=== PATIENT | female | born 1980 | race Caucasian/White ===

== ENCOUNTER 2021-05-28 10:14 | Emergency (ER) | payer OTHER ==
[~2021-05-28] VITALS: Ht 160 cm; Wt 79.6 kg
[2021-05-28 13:31] LABS: BASO % 0.3 % (0.0-1.0); EOS # 0.1 10^3/uL (0.0-0.5); EOS % 0.5 % (0.0-3.0); HEMATOCRIT 38.1 % (36.0-47.0); HEMOGLOBIN 12.9 g/dl (12.0-15.5); LYMPH # 1.6 10^3/uL (1.5-5.0); MEAN CORPUSCULAR HEMOGLOBIN 29.2 pg (27.0-33.0); MEAN CORPUSCULAR HGB CONC 33.9 g/dl (32.0-36.5); MEAN CORPUSCULAR VOLUME 86.2 fl (80.0-96.0); MONO # 0.7 10^3/uL (0.0-0.8); MONO % 5.9 % (2.0-8.0); NEUTROPHILS # 8.8 10^3/uL (1.5-8.5); NEUTROPHILS % 78.9 % (36.0-66.0); PLATELET COUNT, AUTOMATED 368 10^3/uL (150-450); RED BLOOD COUNT 4.42 10^6/uL (4.00-5.40); WHITE BLOOD COUNT 11.1 10^3/uL (4.0-10.0)
[2021-05-28] MEDS ORDERED: MORPHINE 2 MG/ML 1ML VIAL (J2270) IV ONE (13:50)
[2021-05-28] MEDS ORDERED: ONDANSETRON 4MG/2ML VIAL IV ONE (14:10)
[2021-05-28 14:33] LABS: ALBUMIN 3.6 GM/DL (3.2-5.2); BILIRUBIN,DIRECT 0.1 MG/DL (0.0-0.2); BILIRUBIN,TOTAL 0.4 MG/DL (0.2-1.0); CREATININE FOR GFR 1.19 MG/DL (0.55-1.30); POTASSIUM SERUM 3.6 MEQ/L (3.5-5.1); TOTAL PROTEIN 8.1 GM/DL (6.4-8.2)
[2021-05-28] MEDS ORDERED: NS 500 ML IV ONE (14:40)
[2021-05-28] MEDS ORDERED: KETOROLAC 30 MG/ML 1ML VIAL IV ONE (14:40)
[2021-05-28] MEDS ORDERED: KETOROLAC 30 MG/ML 1ML VIAL As Ordered ONE (14:44)
--- NOTE | 2021-05-28 14:53 | REP ---
INDICATION: pelvic pain, right,known left large mass vs clot vs cyst. COMPARISON: None. TECHNIQUE: Transvesical and transvaginal imaging. FINDINGS: The uterus has a bulbous appearance measuring approximately 8.3 x 5.6 x 5.7 cm. The parenchymal echo pattern is heterogenous but there are no measurable discrete masses. The endometrial echo complex is poorly distinguished from the myometrial echoes and has only an estimated thickness of 6 mm. The right ovary measures 3.6 x 2.5 x 2.4 cm and is within normal limits with an RI 0.67 per Left ovary measures approximately 13.7 x 7.6 x 12.6 cm, is seen transabdominal E only, and has within it and 11.2 x 6.8 x 10.3 cm sized mixed echo mass. This mass may have a debris fluid level. The left ovarian RI is 0.57. Urinary bladder measures 6 x 3 x 4 cm IMPRESSION: 1. There is a large left dimitrios pelvic mass. History given to me is that the patient has a known large left mass versus cyst versus clot. This, certainly, is confusing since are no prior imaging studies of any kind to compare. I would like to know where this history comes from and I would like to be able to compare this study to prior exams which may have been responsible for fostering that history. If no priors can be obtained then I would recommend pre and post gadolinium enhanced pelvic MRI. Certainly, the etiology of this mass is unknown and seen in limited fashion on this single ultrasound exam. <Electronically signed by Mazin Nicholas > 05/28/21 [id number]
[2021-05-28 16:21] VITALS: BP 154/83
== END 2021-05-28 16:23 | disposition home or self-care (01) ==
LOC: M ED 10:14
DX: R19.09 Other intra-abdominal and pelvic swelling, mass and lump (principal); I10 Essential (primary) hypertension; Z91.89 Other specified personal risk factors, not elsewhere classified
CPT/HCPCS: 36415; 76830; 76856; 80048; 80076; 81001; 83690; 85025; 87086; 93976; 96361; 96374; 96375; 99284; J1885; J2405

== ENCOUNTER 2021-06-22 05:58 | Day surgery (SDC) | payer OTHER ==
[~2021-06-22] VITALS: Ht 160 cm; Wt 78.2 kg
[~2021-06-22 05:58] MED LIST: IBUP80TA PO; LISI20TA33 PO; ONDA-83 PO; OXYC1TAB23 PO; TIZA4TAB4 PO
[2021-06-22] MEDS ORDERED: ACETAMINOPHEN *IV* 1,000 MG IV ONE ×2 (06:00)
[2021-06-22] MEDS ORDERED: LIDOCAINE 1% MDV 20ML VIAL SQ PRN (06:00)
[2021-06-22] MEDS ORDERED: LR 1,000 ML IV ONE (06:00)
--- OUTSIDE RECORDS SUMMARY | 2021-06-22 06:03 | CCD | Summary of Care ---
Author Author [facility] Organization [facility] Address Unknown Phone Unavailable Care Team Providers Care Lead Java Programmer Name Role Phone Kamar Quintana MD PCP Reason for Referral * Diagnostic Radiology (Routine) Referred By Contact Referred To Contact Status Reason Specialty Diagnoses / Procedures Kris Paredes PA [address] [place] [id number] Email: [email or web address] Open Radiology Diagnoses Hip pain, chronic, left P rocedures MR Extremity Lower Joint without Contrast Left Joint, Hip Electronically signed by Kris FERNANDEZ at Reason for Visit * Reason Comments Follow-up Bilateral hip pain - worse * Office Visit (Routine) Referred By Contact Referred To Contact Status Reason Specialty Diagnoses / [place] [address] [place] [address] Jefry Ko MD [address] [place] [address] Email: [email or web address] Authorized Orthopedic Diagnoses Surgery REFFERAL #[id number], Left hip pain(referral for bilat but having issues with left mostly),bXR,notes from [facility] to [address] (auth also given to Oscar Kathleen) 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 1 03/02/21-08/29/21 OV 3 03/02/21-03/02/22 P rocedures NEW PATIENT 03/02/21-03/02/22 Bilat hip pain Encounter Details Care Team Description Date Type Department Kris Paredes PA [address] [place] [address] [phone] Hip pain, chronic, left (Primary Dx) 04/30/2021 Office Visit [facility] , [facility] [address] [place] [address] Allergies Comments Active Allergy Reactions Severity Noted Date Fredo after appendix - unknown reaction as a child Other 03/23/2021 documented as of this encounter (statuses as of 04/30/2021) Medications End Date Status Medication Sig Dispensed Refills Start Date Active Zanaflex 4 MG Oral Tablet 0 1 Active Acetaminophen ER 650 MG Take 650 mg 0 Oral Tablet Extended by mouth Release (Tylenol 8 Hour every 8 Arthritis Pain) (eight) hours as needed for Pain Active oxyCODONE-Acetaminophen TAKE ONE 0 5-325 MG Oral Tablet TABLET BY 1 (PERCOCET) MOUTH FOUR TIMES A DAY NEEDED FOR PAIN MAXIMUM DAILY DOSE 4 Active Ibuprofen 800 MG Oral 0 Tablet (MOTRIN) 1 04/30/2021 Discontinued oxyCODONE HCl 5 MG Oral 0 Tablet (ROXICODONE) 1 04/30/2021 Discontinued Diclofenac Sodium 75 MG 0 Oral Tablet Delayed 1 Release (VOLTAREN) 04/30/2021 Discontinued Piroxicam 20 MG Oral 0 Capsule (FELDENE) 1 documented as of this encounter (statuses as of 04/30/2021) Active Problems No known active problemsdocumented as of this encounter (statuses as of 04/30/2021) Social History Date Tobacco Use Types Packs/Day Years Used Never Smoker Smokeless Tobacco: Never Used Comments Alcohol Use Standard Drinks/Week Occasionally Yes 0 (1 standard drink = 0.6 o z pure alcohol) Sex Assigned at Date Recorded Not on file Date Recorded COVID-19 Exposure Response 04/29/2021 8:14 PM EDT In the last month, have you been in contact with No / Unsure someone who was confirmed or suspected to have Coronavirus / COVID-19? documented as of this encounter Last Filed Vital Signs Not on filedocumented in this encounter Patient Instructions * Patient Instructions* Ruthann Jordan LPN - 04/30/2021 10:00 AM EDT The patient is instructed to call the office with any question/concerns or if sy mptoms worsen. documented in this encounter Progress Notes * Kris Paredes PA - 04/30/2021 10:00 AM EDT Established Patient, Subsequent Encounter Dx: 1. Left hip and groin pain, failing physical therapy 2. 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 female who returns to the office for follow-up for left hip pain. Last visit, she was complaining of left hip pain. 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 However, her main issue was left hip pain at the last visit. We started her in physical therapy. She has been attending for 6 weeks and has had no meaningful improvem ent. She is complaining of pain in the hip and groin in a C-shaped distribution about the hip. She has pain with rotary motion of the hip she has pain with hip flexion. She also has some lateral hip pain. She does not seem to be getting any traction on the symptoms despite attending physical therapy regularly since last visit. She was seen in her local community ED recently after a physical therapy visit w hen she had increased pain. She had x-rays of her back done which showed very m inimal DDD. Those x-rays are not available for review today, however the report was available for review which showed mild L3-L4 DDD. There has been no interval trauma. The patient denies fevers, chills, sweats. No neurological complaints. Medical history, family history, social history, medications, allergies and revi ew of systems are documented in the electronic record and reviewed today with farzaneh e patient. PHYSICAL EXAMINATION: General: Pleasant, cooperative, A&O, NAD. Gait: normal with no assistive device Hip Passive range of motion: Right hip- 90 degrees flexion, 40 degrees ER, 20 degrees IR, 0 degree hip flexio n contracture. Left hip- 105 degrees flexion, 60 degrees ER, 40 degrees IR, 0 degree hip flexio n contracture. Palpation: Right hip tenderness to palpation- none. Left hip tenderness to palpation- none. Specific tests: Right hip- Stinchfield positive, impingement positive, LUCIO negative. Left hip- Stinchfield positive, impingement positive, LUCIO positive. Limb lengths: equal Scars: None Neurovascular Exam: Bilateral distal neurovascular exam showed well-perfused fee t with intact foot dorsiflexion/plantarflexion and EHL, normal sensation in the deep and superficial peroneal nerve and medial and lateral plantar nerve distrib utions bilaterally. IMAGING: No new imaging obtained today. X-rays last visit demonstrated right femoral hea d flattening with secondary DJD consistent with patient's provided history of SC FE. Left hip showed fairly well-preserved joint space with no significant abnor mal findings. ASSESSMENT: 1. Left hip and groin pain, failing physical therapy 2. 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 At this point, we have not established diagnosis explaining her chronic right hip pain. However, the left hip is more symptomatic and failing conservative treatment with physical therapy for over 6 weeks. Therefore, MRI imaging is indicated. We will proceed on with MRI and I will see her back after the study to review results. The patient was instructed to call the office with any questions/concerns or if symptoms worsen. Follow-up: Post MRI, okay for telemedicine visit for review Imaging Next Visit: None Orders Placed This Encounter MR Extremity Lower Joint without Contrast Left Joint, Hip CC: Kamar Quintana MD This document was dictated using [employer] software. A reasonable attempt at proof reading has been made to minimize errors. Please ca ll our office if you have any questions. documented in this encounter Plan of Treatment Order Schedule Name Type Priority Associated Diag noses Expected: 04/30/2021, Expires: MR Extremity Lower Joint Imaging Routine Hip p ain, chronic, left without Contrast Left Joint, Hip Health Maintenance Due Date Last Done Comments MMR Vaccines (1 of - 1980 Standard series) Varicella Vaccines (1 of 1980 2 - 2-dose childhood series) DTaP,Tdap,and Td Vaccines 1986 (1 - Tdap) HIV Screening 1992 Cervical Cancer Screening 2000 5 years Influenza Vaccine 05/28/2021 Pneumococcal Vaccine: 65+ 2044 Years (1 of 1 - PPSV23) HIB Vaccines Aged Out No longer eligible based on patient's age to complete this topic Hepatitis A Vaccines Aged Out No longer eligibl e based on patient's age to complete this topic Hepatitis B Vaccines Aged Out No longer eligibl e based on patient's age to complete this topic IPV Vaccines Aged Out No longer eligible based on patient's age to complete this topic Pneumococcal Vaccine: Aged Out No longer eligib le based on patient's age to Pediatrics (0 to 5 Years) complete this topic and At-Risk Patients (6 to 64 Years) documented as of this encounter Results Not on filedocumented in this encounter Visit Diagnoses Diagnosis Hip pain, chronic, left - Primary documented in this encounter
--- OUTSIDE RECORDS SUMMARY | 2021-06-22 06:03 | CCD | Summary of Care ---
Author Author [facility] Organization [facility] Address Unknown Phone Unavailable Care Team Providers Care Java Architect Name Role Phone Kamar Quintana MD PCP Reason for Referral * Physical Therapy (Routine) Referred By Contact Referred To Contact Status Reason Specialty Diagnoses / Procedures Kris Paredes PA [address] [place] [id number] Email: [email or web address] Open Diagnoses Arthritis of right hip Strain of flexor muscle of left hip, initial encounter P rocedures Physical Therapy Electronically signed by Kris FERNANDEZ at Reason for Visit * Reason Comments New Patient November 2020 Bilateral hip pa in - no injury * Office Visit (Routine) Referred By Contact Referred To Contact Status Reason Specialty Diagnoses / [place] [address] [place] [address] Jefry Ko MD [address] [place] [address] Email: [email or web address] Authorized Orthopedic Diagnoses Surgery REFFERAL #[id number], Left hip pain(referral for bilat but having issues with left mostly),bXR,notes from [facility] to [address] (auth also given to Oscar Kathleen) 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 [place] [address] [place] [address] Allergies Comments Active Allergy Reactions Severity Noted Date [place] after appendix - unknown reaction as a child Other 03/23/2021 documented as of this encounter (statuses as of 03/25/2021) Medications End Date Status Medication Sig Dispensed Refills Start Date Active oxyCODONE HCl 5 MG Oral 0 Tablet (ROXICODONE) 1 Active Diclofenac Sodium 75 MG 0 Oral Tablet Delayed 1 Release (VOLTAREN) Active Piroxicam 20 MG Oral 0 Capsule (FELDENE) 1 Active Zanaflex 4 MG Oral Tablet 0 1 Active Acetaminophen ER 650 MG Take 650 mg 0 Oral Tablet Extended by mouth Release (Tylenol 8 Hour every 8 Arthritis Pain) (eight) hours as needed for Pain documented as of this encounter (statuses as of 03/25/2021) Active Problems No known active problemsdocumented as of this encounter (statuses as of 03/25/2021) Social History Date Tobacco Use Types Packs/Day Years Used Never Smoker Smokeless Tobacco: Never Used Comments Alcohol Use Standard Drinks/Week Occasionally Yes 0 (1 standard drink = 0.6 o z pure alcohol) Sex Assigned at Date Recorded Not on file Date Recorded COVID-19 Exposure Response 03/22/2021 6:27 PM EDT In the last month, have you been in contact with No / Unsure someone who was confirmed or suspected to have Coronavirus / COVID-19? documented as of this encounter Last Filed Vital Signs Reading Time Taken Comments Vital Sign 158/89 03/23/2021 1:54 PM EDT Blood Pressure 89 03/23/2021 1:54 PM EDT Pulse - - Temperature - - Respiratory Rate - - Oxygen Saturation - - Inhaled Oxygen Concentration 83.4 kg (183 lb 12.8 oz) 03/23/2021 1:54 PM EDT Weight 160 cm (5' 3") 03/23/2021 1:54 PM EDT Height 32.56 03/23/2021 1:54 PM EDT Body Mass Index documented in this encounter Patient Instructions * Patient Instructions* Ruthann Jordan LPN - 03/23/2021 2:00 PM EDT The patient is instructed to call the office with any question/concerns or if sy mptoms worsen. documented in this encounter Progress Notes * Kris Paredes PA - 03/23/2021 2:00 PM EDT New Patient, Initial Encounter, Hip Pain Dx: 1. Right hip DJD with history of SCFE 2. Left hip pain likely musculotendinous secondary to compensation for #1 Attending: Jefry Ko MD Chief Complaint Patient presents with New Patient November 2020 Bilateral hip pain - no injury HPI: Saul is a 40 y.o. year/old female who presents to the office today for evaluat ion of bilateral hip pain. 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 She states she had a delayed Diagnosis and had been treated as a muscle strain. She did not undergo pinning as a child, but did have what sounds like an osteotomy as an adult in 2008 in [facility] in [facility] by Dr. Mane. As far as right hip goes, she has aches and pains particularly in the groin wors e with activity, better with rest, but difficulty finding a comfortable position to sleep. Symptoms are fairly stable on that side. However, more recently she has started to get some anterior left hip pain. Pain is worse with active hip flexion. She is tried heat, cold, OTC analgesics. She takes muscle relaxers an ti-inflammatories and for a time tried oxycodone. She also uses Tylenol arthrit is to manage symptoms in both hips. There has been no trauma. PMH: Reviewed. History reviewed. No pertinent past medical history. History reviewed. No pertinent family history. Past Surgical History: Procedure Laterality Date APPENDECTOMY 1986 SECTION HIP SURGERY Right SHOULDER SURGERY Current Outpatient Medications: Acetaminophen ER 650 MG Oral Tablet Extended Release (Tylenol 8 Hour Art hritis Pain), Take 650 mg by mouth every 8 (eight) hours as needed for Pain, Di sp: , Rfl: Diclofenac Sodium 75 MG Oral Tablet Delayed Release (VOLTAREN), , Disp: , Rfl: oxyCODONE HCl 5 MG Oral Tablet (ROXICODONE), , Disp: , Rfl: Zanaflex 4 MG Oral Tablet, , Disp: , Rfl: Piroxicam 20 MG Oral Capsule (FELDENE), , Disp: , Rfl: Allergies Allergen Reactions Other Fredo after appendix - unknown reaction as a child ROS: Comprehensive review of systems completed by patient and reviewed by me. P ertinent positive findings include nothing other than mentioned in the HPI/PMH. Otherwise negative. Vitals: 03/23/21 1354 BP: 158/89 Pulse: 89 Body mass index is 32.56 kg/m. PHYSICAL EXAMINATION General: Pleasant patient in good spirits, A&O X 3, cooperative, NAD. Gait: normal with no assistive device [...] LUCIO negative. Left hip- Stinchfield positive, impingement negative, LUCIO negative. Limb lengths: equal Scars: None Neurovascular Exam: Bilateral distal neurovascular exam showed well-perfused fee t with intact foot dorsiflexion/plantarflexion and EHL, normal sensation in the deep and superficial peroneal nerve and medial and lateral plantar nerve distrib utions bilaterally. IMAGING REVIEW: All imaging was reviewed by me with patient and/or family members, final radiolo gy report pending. To my independent review, pelvis and hip x-rays show moderat e right hip DJD with mild flattening and deformity of the femoral head consisten t with patient's history of SCFE. Left hip well-preserved with no acute bony ab normalities either side.. ASSESSMENT: 1. Right hip DJD with history of SCFE 2. Left hip pain likely musculotendinous secondary to compensation for #1 PLAN: For the right hip, options for treatment of hip arthritis have been reviewed wit stewart Hughes, including OTC or Rx NSAIDs, Tylenol, low impact exercise, weight loss as needed, image-guided intra-articular cortisone injections and/or PT. Advance d arthritis that has failed these conservative treatments can be treated with to constantin hip replacement. For the left hip, recommend physical therapy and the patient agrees. Only see her back in 6 weeks to see how she is doing with PT for the left hip. For the time being, the right hip is fairly status quo, and she is managing with her symptoms. When her symptoms become more prominent on the right side, we co uld consider intra-articular injection. Ultimately we would want to hold off on surgical intervention with FERNANDA as long as possible and the patient is in total agreement with that. Follow-up: 6 weeks clinical check Imaging Next Visit: None Orders Placed This Encounter Physical Therapy CC: Kamar Quintana MD This document was dictated using [employer] software. A reasonable attempt at proof reading has been made to minimize errors. Please ca ll our office if you have any questions. documented in this encounter Plan of Treatment Care Team Description Date Type Specialty Kris Paredes PA [address] [place] [address] [phone] 04/30/2021 Office Visit Orthopedic Surgery Health Maintenance Due Date Last Done Comments MMR Vaccines (1 of - 1980 Standard series) Varicella Vaccines (1 of 1980 2 - 2-dose childhood series) DTaP,Tdap,and Td Vaccines 1986 (1 - Tdap) HIV Screening 1992 Cervical Cancer Screening 2000 5 years Influenza Vaccine 05/28/2021 Pneumococcal Vaccine: 65+ 2044 Years (1 of - PPSV23) HIB Vaccines Aged Out No [...] filedocumented in this encounter Visit Diagnoses Diagnosis Arthritis of right hip - Primary Strain of flexor muscle of left hip, in itial encounter documented in this encounter
--- OUTSIDE RECORDS SUMMARY | 2021-06-22 06:04 | CCD ---
Author Author [facility] Organization [facility] Address Unknown Phone Unavailable Care Team Providers Care Child & Adolescent Psychiatrist Name Role Phone NO, PCP Unavailable Unavailable Paredes, P Kris PA Unavailable Unavailable Paredes, P Kris PA Unavailable Unavailable Paredes, P Kris PA Unavailable Unavailable Paredes, P Kris PA Unavailable Unavailable Paredes, P Kris PA Unavailable Unavailable Paredes, P Kris PA Unavailable Unavailable Paredes, P Kris PA Unavailable Unavailable Paredes, P Kris PA Unavailable Unavailable Paredes, P Kris PA Unavailable Unavailable Paredes, P Kris PA Unavailable Unavailable Paredes, P Kris PA Unavailable Unavailable Paredes, P Kris PA Unavailable Unavailable Paredes, P Kris PA Unavailable Unavailable Paredes, P Kris PA Unavailable Unavailable Paredes, P Kris PA Unavailable Unavailable Paredes, P Kris PA Unavailable Unavailable Paredes, P Kris PA Unavailable Unavailable Paredes, P Kris PA Unavailable Unavailable Paredes, P Kris PA Unavailable Unavailable Paredes, P Kris PA Unavailable Unavailable Paredes, P Kris PA Unavailable Unavailable Paredes, P Kris PA Unavailable Unavailable Paredes, P Kris PA Unavailable Unavailable Paredes, P Kris PA Unavailable Unavailable Paredes, P Kris PA Unavailable Unavailable Paredes, P Kris PA Unavailable Unavailable Paredes, P Kris PA Unavailable Unavailable Paredes, P Kris PA Unavailable Unavailable Paredes, P Kris PA Unavailable Unavailable Paredes, P Kris PA Unavailable Unavailable Paredes, P Kris PA Unavailable Unavailable Paredes, P Kris PA Unavailable Unavailable Paredes, P Kris PA Unavailable Unavailable Paredes, P Kris PA Unavailable Unavailable Paredes, P Kris PA Unavailable Unavailable Paredes, P Kris PA Unavailable Unavailable Paredes, P Kris PA Unavailable Unavailable Paredes, P Kris PA Unavailable Unavailable Paredes, P Kris PA Unavailable Unavailable Paredes, P Kris PA Unavailable Unavailable Paredes, P Kris PA Unavailable Unavailable Paredes, P Kris PA Unavailable Unavailable SIDDIQI, BARRETT Unavailable Unavailable Mcelroy, Kahlil MD Unavailable Unavailable Mcelroy, Kahlil MD Unavailable Unavailable Mcelroy, Kahlil MD Unavailable Unavailable Mcelroy, Kahlil MD Unavailable Unavailable Mcelroy, Kahlil MD Unavailable Unavailable Mcelroy, Kahlil MD Unavailable Unavailable WATTERS, A PRISCILA MD Unavailable Unavailable WATTERS, A PRISCILA MD Unavailable Unavailable WATTERS, A PRISCILA MD Unavailable Unavailable WATTERS, A PRISCILA MD Unavailable Unavailable WATTERS, A PRISCILA MD Unavailable Unavailable WATTERS, A PRISCILA MD Unavailable Unavailable WATTERS, A PRISCILA MD Unavailable Unavailable WATTERS, A PRISCILA MD Unavailable Unavailable WATTERS, A PRISCILA MD Unavailable Unavailable WATTERS, A PRISCILA MD Unavailable Unavailable WATTERS, A PRISCILA MD Unavailable Unavailable WATTERS, A PRISCILA MD Unavailable Unavailable WATTERS, A PRISCILA MD Unavailable Unavailable WATTERS, A PRISCILA MD Unavailable Unavailable WATTERS, A PRISCILA MD Unavailable Unavailable WATTERS, A PRISCILA MD Unavailable Unavailable WATTERS, A PRISCILA MD Unavailable Unavailable WATTERS, A PRISCILA MD Unavailable Unavailable WATTERS, A PRISCILA MD Unavailable Unavailable WATTERS, A PRISCILA MD Unavailable Unavailable WATTERS, A PRISCILA MD Unavailable Unavailable WATTERS, A PRISCILA MD Unavailable Unavailable WATTERS, A PRISCILA MD Unavailable Unavailable WATTERS, A PRISCILA MD Unavailable Unavailable WATTERS, A PRISCILA MD Unavailable Unavailable WATTERS, A PRISCILA MD Unavailable Unavailable WATTERS, A PRISCILA MD Unavailable Unavailable WATTERS, A PRISCILA MD Unavailable Unavailable WATTERS, A PRISCILA MD Unavailable Unavailable WATTERS, A PRISCILA MD Unavailable Unavailable WATTERS, A PRISCILA MD Unavailable Unavailable WATTERS, A PRISCILA MD Unavailable Unavailable WATTERS, A PRISCILA MD Unavailable Unavailable WATTERS, A PRISCILA MD Unavailable Unavailable WATTERS, A PRISCILA MD Unavailable Unavailable WATTERS, A PRISCILA MD Unavailable Unavailable WATTERS, A PRISCILA MD Unavailable Unavailable WATTERS, A PRISCILA MD Unavailable Unavailable WATTERS, A PRISCILA MD Unavailable Unavailable WATTERS, A PRISCILA MD Unavailable Unavailable WATTERS, A PRISCILA MD Unavailable Unavailable WATTERS, A PRISCILA MD Unavailable Unavailable WATTERS, A PRISCILA MD Unavailable Unavailable WATTERS, A PRISCILA MD Unavailable Unavailable WATTERS, A PRISCILA MD Unavailable Unavailable WATTERS, A PRISCILA MD Unavailable Unavailable WATTERS, A PRISCILA MD Unavailable Unavailable WATTERS, A PRISCILA MD Unavailable Unavailable WATTERS, A PRISCILA MD Unavailable Unavailable WATTERS, A PRISCILA MD Unavailable Unavailable WATTERS, A PRISCILA MD Unavailable Unavailable WATTERS, A PRISCILA MD Unavailable Unavailable WATTERS, A PRISCILA MD Unavailable Unavailable WATTERS, A PRISCILA MD Unavailable Unavailable WATTERS, A PRISCILA MD Unavailable Unavailable WATTERS, A PRISCILA MD Unavailable Unavailable WATTERS, A PRISCILA MD Unavailable Unavailable WATTERS, A PRISCILA MD Unavailable Unavailable WATTERS, A PRISCILA MD Unavailable Unavailable WATTERS, A PRISCILA MD Unavailable Unavailable WATTERS, A PRISCILA MD Unavailable Unavailable WATTERS, A PRISCILA MD Unavailable Unavailable WATTERS, A PRISCILA MD Unavailable Unavailable WATTERS, A PRISCILA MD Unavailable Unavailable WATTERS, A PRISCILA MD Unavailable Unavailable WATTERS, A PRISCILA MD Unavailable Unavailable WATTERS, A PRISCILA MD Unavailable Unavailable WATTERS, A PRISCILA MD Unavailable Unavailable WATTERS, A PRISCILA MD Unavailable Unavailable WATTERS, A PRISCILA MD Unavailable Unavailable WATTERS, A PRISCILA MD Unavailable Unavailable WATTERS, A PRISCILA MD Unavailable Unavailable WATTERS, A PRISCILA MD Unavailable Unavailable WATTERS, A PRISCILA MD Unavailable Unavailable WATTERS, A PRISCILA MD Unavailable Unavailable WATTERS, A PRISCILA MD Unavailable Unavailable WATTERS, A PRISCILA MD Unavailable Unavailable WATTERS, A PRISCILA MD Unavailable Unavailable WATTERS, A PRISCILA MD Unavailable Unavailable WATTERS, A PRISCILA MD Unavailable Unavailable WATTERS, A PRISCILA MD Unavailable Unavailable WATTERS, A PRISCILA MD Unavailable Unavailable WATTERS, A PRISCILA MD Unavailable Unavailable WATTERS, A PRISCILA MD Unavailable Unavailable WATTERS, A PRISCILA MD Unavailable Unavailable WATTERS, A PRISCILA MD Unavailable Unavailable WATTERS, A PRISCILA MD Unavailable Unavailable WATTERS, A PRISCILA MD Unavailable Unavailable WATTERS, A PRISCILA TROY Unavailable Unavailable WATTERS, A PRISCILA TROY Unavailable Unavailable WATTERS, A PRISCILA TROY Unavailable Unavailable WATTERS, A PRISCILA TROY Unavailable Unavailable Lucille PETIT Unavailable Unavailable TURRIN, KATTY Unavailable Unavailable TURRIN, KATTY Unavailable Unavailable TURRIN, KATTY Unavailable Unavailable TURRIN, KATTY Unavailable Unavailable SIDDIQI, S BARRETT Unavailable Unavailable CHANMAURAECMIREILLE, Ca GREENE MD Unavailable Unavailable CHANLIECMIREILLE, Ca GREENE MD Unavailable Unavailable CHANLIECMIREILLE, Ca GREENE MD Unavailable Unavailable CHANLIECMIREILLE, Ca GREENE MD Unavailable Unavailable CHANLIECMIREILLE, Ca GREENE MD Unavailable Unavailable CHANLIECMIREILLE, Ca GREENE MD Unavailable Unavailable CHANLIECMIREILLE, Ca GREENE MD Unavailable Unavailable CHANLIECMIREILLE, Ca GREENE MD Unavailable Unavailable CHANLIECMIREILLE, Ca GREENE MD Unavailable Unavailable CHANLIECCa KENDRICK MD Unavailable Unavailable Ca ARROYO MD Unavailable Unavailable Re-disclosure Warning The records that you are about to access may contain information from federally-assisted alcohol or drug abuse programs. If such information is present, then the following federally mandated warning applies: This information has been disclosed to you from records protected by federal confidentiality rules (42 CFR part 2). The federal rules prohibit you from making any further disclosure of this information unless further disclosure is expressly permitted by the written consent of the person to whom it pertains or as otherwise permitted by 42 CFR part 2. A general authorization for the release of medical or other information is NOT sufficient for this purpose. The Federal rules restrict any use of the information to criminally investigate or prosecute any alcohol or drug abuse patient.The records that you are about to access may contain highly sensitive health information, the redisclosure of which is protected by Article 27-F of the [facility] Public Health law. If you continue you may have access to information: Regarding HIV / AIDS; Provided by facilities licensed or operated by the [facility] Office of Mental Health; or Provided by the [facility] Office for People With Developmental Disabilities. If such information is present, then the following [facility] mandated warning applies: This information has been disclosed to you from confidential records which are protected by state law. State law prohibits you from making any further disclosure of this information without the specific written consent of the person to whom it pertains, or as otherwise permitted by law. Any unauthorized further disclosure in violation of state law may result in a fine or prison sentence or both. A general authorization for the release of medical or other information is NOT sufficient authorization for further disc losure. Allergies and Adverse Reactions Type Description Substance Reaction Status Data Source(s ) OTHER OTHER [facility] Encounters Encounter Providers Location Date Indications Data Source(s ) Outpatient Attender: Kris Dacostaer: BARRETT SIDDIQI [id number] 05/31/2021 12:00:00 AM EDT [facility] Emergency Attender: Kahlil COELHOonsultant: BARRETT SIDDIQI 05/27/2021 07:05:00 PM EDT - 05/28/2021 12:51:00 AM EDT [facility] Patient discharged. Emergency Attender: Kahlil Mcelroy MDConsultant: BARRETT SIDDIQI 05/26/2021 12:01:00 AM EDT - 05/26/2021 04:05:00 AM EDT [facility] Patient discharged. Emergency Attender: Kahlil Meaghan MDConsultant: BARRETT SIDDIQI 05/25/2021 05:53:00 PM EDT - 05/25/2021 07:28:00 PM EDT [facility] l Patient discharged. Outpatient Referrer: Kris FERNANDEZ 05/21/2021 12: 00:00 AM EDT Pain in left hip [facility] Pain in left hip Outpatient Attender: Kris Dacostaer: BARRETT SIDDIQI [id number] 04/30/2021 12:00:00 AM [facility] Outpatient Attender: PRISCILA WATTERS MD 04/16/2021 12:00:00 AM [facility] Emergency Attender: JC ARROYO MDConsultant: BARRETT SIDDIQI 04/12/2021 08:40:00 AM EDT - 04/12/2021 10:45:00 AM EDT [facility] Patient discharged. Outpatient Attender: NOELLE DIASonsultant: BARRETT SIDDIQI 04/05/2021 01:52:14 PM EDT - 04/06/2021 12:47:00 PM EDT [facility] Patient discharged. Outpatient Attender: BARRETT Lovettsultant: BARRETT SIDDIQI 03/31/2021 10:28:27 AM EDT - 05/04/2021 07:56:00 AM EDT [facility] Patient discharged. Outpatient Attender: Kris Dacostaer: BARRETT SIDDIQI [id number] 03/23/2021 12:00:00 AM [facility] Emergency Attender: KATTY Milnerltant: AGUSTIN DAWN 03/04/2021 03:37:00 AM EDT - 03/04/2021 04:40:00 AM EDT [facility] Patient discharged. Medications Medication Brand Name Start Date Product Form Dose Route Admi nistrative Instructions Pharmacy Instructions Status Indications Reaction Description Data Source(s) Acetaminophen 325 MG / Hydrocodone Bitartrate 5 MG Ora l Tablet 5-325 mg HYDROCODONE/ACETAMINOPHEN 05/28/2021 12:00:00 AM EDT tablet 15 TAKE ONE TABLET BY MOUTH EVERY 6 HOURS MAXIMUM DAILY DOSE = 4 TABLETS TAKE ONE TABLET BY MOUTH EVERY 6 HOURS MAXIMUM DAILY DOSE = 4 TABLETS SOLD: 05/28/2021 [facility] 4 mg 05/26/2021 12:00:00 AM EDT tablet 15 TAKE ONE TABLET BY MOUTH THREE TIMES A DAY TAKE ONE TABLET BY MOUTH THREE TIMES A DAY SOLD: 05/26/2021 [facility] 800-160 mg 05/26/2021 12:00:00 AM EDT tablet 14 TAKE ONE TABLET BY MOUTH TWICE A DAY FOR 7 DAYS TAKE ONE TABLET BY MOUTH TWICE A DAY FOR 7 DAYS SOLD: 05/26/2021 [facility] 20-12.5 mg 05/25/2021 12:00:00 AM EDT tablet 14 TAKE ONE TABLET BY MOUTH EVERY DAY TAKE ONE TABLET BY MOUTH EVERY DAY SOLD: 05/25/2021 [facility] Ibuprofen 800 MG Oral Tablet Ibuprofen 800 MG Oral Tab let (MOTRIN) Ibuprofen 800 MG Oral Tablet (MOTRIN) 04/14/2021 12:00:00 AM EDT active [facility] 5-325 mg 04/12/2021 12:00:00 AM EDT tablet 12 TAKE ONE TABLET BY MOUTH FOUR TIMES A DAY NEEDED FOR PAIN - MAXIMUM DAILY DOSE = 4 TAKE ONE TABLET BY MOUTH FOUR TIMES A DAY NEEDED FOR PAIN - MAXIMUM DAILY DOSE = 4 SOLD: 04/12/2021 [facility] Cyclobenzaprine hydrochloride 10 MG Oral Tablet CYCLOBENZAPR INE HCL 04/12/2021 12:00:00 AM EDT tablet 21 TAKE ONE TABLET BY MOUTH THREE TIMES A DAY TAKE ONE TABLET BY MOUTH THREE TIMES A DAY SOLD: 04/12/2021 [facility] 800 mg 04/12/2021 12:00:00 AM EDT tablet 21 TAKE ONE TABLET BY MOUTH THREE TIMES A DAY - TAKE WITH FOOD TAKE ONE TABLET BY MOUTH THREE TIMES A D AY - TAKE WITH FOOD SOLD: 04/12/2021 [facility] Acetaminophen 325 MG / Oxycodone Hydroch loride 5 MG Oral Tablet oxyCODONE- Acetaminophen 5-325 MG Oral Tablet (PERCOCET) oxyCODONE-Acetaminophen 5-325 MG Oral Tablet (PERCOCET) 04/12/2021 12:00:00 AM EDT active TAKE ONE TABLET BY MOUTH FOUR TIMES A DAY NEEDED FOR PAIN MAXIMUM DAILY DOSE 4 [facility] Diclofenac Sodium 75 MG Delayed Release Oral Tablet Diclofenac Sodium 75 MG Oral Tablet Delayed Release (VOLTAREN) Diclofenac Sodium 75 MG Oral Tablet Idalmis yed Release (VOLTAREN) 03/08/2021 12:00:00 AM EDT [facility] tizanidine 4 MG Oral Tablet [Zanaflex] Zanaflex 4 MG O ral Tablet Zanaflex 4 MG Oral Tablet 03/08/2021 12:00:00 AM EDT [facility] 5 % 03/04/2021 12:00:00 AM EDT adhesive patch,medicate d 7 APPLY ONE PATCH TOPICALLY EVERY DAY - TAKE OFF AFTER 12 HOURS APPLY ONE PATCH TOPICALLY EVERY DAY - TAKE OFF AFTER 12 HOURS SOLD: 03/04/2021 [facility] Oxycodone Hydrochloride 5 MG Oral Tablet oxyCODONE HCl 5 MG Oral Tablet (ROXICODONE) oxyCODONE HCl 5 MG Oral Tablet (ROXICODONE) 02/12/2021 12:00:00 AM EDT [facility] Piroxicam 20 MG Oral Capsule Piroxicam 20 MG Oral Caps ule (FELDENE) Piroxicam 20 MG Oral Capsule (FELDENE) 01/05/2021 12:00:00 AM EDT [facility] Insurance Providers Payer name Policy type / Coverage type Policy ID Covered democrat ID Covered democrat's relationship to barragan Policy Barragan Plan Information [employer] [id number] Self [id number] [facility] [id number] [facility] - O/[facility] [id number] [facility] [id number] Problems, Conditions, and Diagnoses Code Display Name Description Problem Type Effective Dates Data Source(s) Z8742 Personal history of other diseases of th e female genital tract Personal history of other diseases of the female genital tract Diagnosis 05/27/2021 07:05:00 PM EDT [facility] Z6831 Body mass index [BMI] 31.0-31.9, adult B rosa mass index [BMI] 31.0-31.9, adult Diagnosis 05/27/2021 07:05:00 PM EDT [facility] E669 Obesity, unspecified Obesity, unspecified Diagnosis 05/27/2021 07:05:00 PM [facility] I10 Essential (primary) hypertension Essential (primary) h ypertension Diagnosis 05/27/2021 07:05:00 PM [facility] R1114 Bilious vomiting Bilious vomiting Diagnosis 05/27/2021 07 :05:00 PM [facility] E860 Dehydration Dehydration Diagnosis 05/27/2021 07:05:00 PM [facility] H80609 Unspecified ovarian cyst, left side Unspecified ovarian cyst, left side Diagnosis 05/27/2021 07:05:00 PM [facility] R112 Nausea with vomiting, unspecified Nausea with vo miting, unspecified Diagnosis 05/27/2021 07:05:00 PM [facility] N3000 Acute cystitis without hematuria Acute cystitis without hematuria Diagnosis 05/26/2021 12:01:00 AM [facility] G89.29 Other chronic pain Other chronic pain Diagnosis 06:00:23 PM [facility] M25.552 Pain in left hip Pain in left hip Diagnosis 05/21/2021 06 :00:23 PM [facility] G8929 Other chronic pain Other chronic pain Diagnosis 08:40:00 AM [facility] M5442 Lumbago with sciatica, left side Lumbago with sc iatica, left side Diagnosis 04/12/2021 08:40:00 AM [facility] I89017 Pain in left hip Pain in left hip Diagnosis 04/12/2021 08 :40:00 AM [facility] Z5321 Procedure and treatment not carried out due to patient leaving prior to being seen by health care provider Procedure and treatment not carried out due to patient leaving prior to being seen by health care provider Diagnosis 04/06/2021 11:46:00 AM [facility] Q27363 Other specified enthesopathies of left l ower limb, excluding foot Other specified enthesopathies of left lower limb, excluding foot Diagnosis 04/01/2021 07:50:00 AM [facility] R102 Pelvic and perineal pain Pelvic and perineal pain Diag nosis 03/04/2021 03:37:00 AM EDT [facility] Surgeries/Procedures No Information Results ID Date Data Source [id number] 06/02/2021 08:16:34 AM EDT [facility] Name Value Range Interpretation Code Description Data Catherine rce(s) Supporting Document(s) Progress Note [facility] SOQKIy0vGdEWZuFq65/SPJwlJYZue9JtLYfgPCi8BXqsWBFyV8NtXNV9jN5kCTH3OBsSJqKuKuYpTCZ3 lbm [file] AgICAgICAgICAgICAgICAgICAgICAgICAgICAgICAgICAgICAgICAgICAgICAgICAgICAgICAgICAgIC AgICAgICAgICAgICAgICAgICAgICAgICAgICAgICAgICAgICANCiAgICAgICAgICAgICAgICAgICAgIC AgICAgICAgICAgICAgICAgICAgICAgICAgICAgICAg ICAgICAgICAgICAgICAgICAgICAgICAgICAgICAgICAgICAgICAgICAgICAgICANCiAgICAgICAgICAg ICAgICAgICAgICAgICAgICAgICAgICAgICAgICAgICAgICAgICAgICAgICAgICAgICAgICAgICAgICAg ICAgICAgICAgICAgICAgICAgICAgICAgICAgICANCi AgICAgICAgICAgICAgICAgICAgICAgICAgICAgICAgICAgICAgICAgICAgICAgICAgICAgICAgICAgIC AgICAgICAgICAgICAgICAgICAgICAgICAgICAgICAgICAgICAgICANCiAgICAgICAgICAgICAgICAgIC AgICAgICAgICAgICAgICAgICAgICAgICAgICAgICAg ICAgICAgICAgICAgICAgICAgICAgICAgICAgICAgICAgICAgICAgICAgICAgICAgICANCiAgICAgICAg ICAgICAgICAgICAgICAgICAgICAgICAgICAgICAgICAgICAgICAgICAgICAgICAgICAgICAgICAgICAg ICAgICAgICAgICAgICAgICAgICAgICAgICAgICAgIC ANCiAgICAgICAgICAgICAgICAgICAgICAgICAgICAgICAgICAgICAgICAgICAgICAgICAgICAgICAgIC AgICAgICAgICAgICAgICAgICAgICAgICAgICAgICAgICAgICAgICAgICANCiAgICAgICAgICAgICAgIC AgICAgICAgICAgICAgICAgICAgICAgICAgICAgICAg ICAgICAgICAgICAgICAgICAgICAgICAgICAgICAgICAgICAgICAgICAgICAgICAgICAgICANCiAgICAg ICAgICAgICAgICAgICAgICAgICAgICAgICAgICAgICAgICAgICAgICAgICAgICAgICAgICAgICAgICAg ICAgICAgICAgICAgICAgICAgICAgICAgICAgICAgIC AgICANCiAgICAgICAgICAgICAgICAgICAgICAgICAgICAgICAgICAgICAgICAgICAgICAgICAgICAgIC AgICAgICAgICAgICAgICAgICAgICAgICAgICAgICAgICAgICAgICAgICAgICANCjw/hEBaQ2egsLRsdi D8Z9bwSs7JIi6BTG1lm1YeELYdNMwoxcBrMejAGoHg VUOdKlfQZbh6ZZedJC8MhFYaS0QnI5KtGNvdRM6YVQDzEXEwmGDxUMTpYLMrRmL8LRCeQQlxGC4AnVYw TUchYWZaKCKuTV0BCJLbQ747ipHdJY0QCx7OZtAsQC6nsb2RFIczAVUhNqsYZzs5KNqjSX8FdEWacXPu RHFfUSJVQgLjM5xcl5KnNeInDVJYEPaiHS8Pe4AejN AxDQo+Ti0HSJ4ge9OfXCtiNRHpUE9xnd1ALSoXCiQqZ7FpgXweURSyc3xeIKNiPX1ceBOaKOJ7DWI7XB 8oKGISd88tc6qwaGwcXXAwOXDyRNUrVJ2bIEVlSHRrDhS4JUGUTJ0IFNVoZMCajYNpHZItNVZCQQ0QHH qoJMZ7NBKkxySamREeAOojMD6UMGRdznDsLTjtCYUZ DQo+Vc8NBX8kw6QfDAkcDOCyFK1jph0ZEKlKApAjF1T8lKTrZ1K2WYdqRv1HZVOnBQFzWBrsORXCAPns OI9SEX7ugyJ2HG2MaSDaWJHkPNDkeVGhAZy4W33geWEeZBrwBD4ERGJ+Jordan+Hf1FEJBrPMYxAMZbGvRi QQKJVwHaW4MlB7MHd3DbE2YmBS82yGkzahOeCRhaNI 2ZAH5iJJLfWFQLAP8WvOSjyD2eplTwYAGrKXABCuPvO43ewNDnZZXbNCU4VJFiLv7DKJAqX4CxstZsfJ ehebZgPAKjQOSNVV4KVRulcmBvwAJfeNnfTY26kDivLO9AZe6RSaMoHB6mww8RpISqRx8OLHRuNp5LMY CdMNRrSNKbNMN3RCYxCkRuQYpfOCUuKAYlEBE6PFJe BCOpHW0ZIqMmRDMyHMY9MpNnMRUdCRQikb3NFOWsSGSmGHC8HJTpKHMiKWKxGOdySAJgGMUtUEX1PIYo VLKmGL1FUuUsWIObXAC2ZTxxEKVsHLBihz2ROGDpKSRfQBf5SnWpAXExHUZmHMwpMYUwYOEpBqCaOVYn HHSxBO1ZDsVyKOJtCJT6NFwxVQAiHGSzmg6EGNIhEP XmLvTcFZNiIDQoAHZgIPqlAVYpMEM2QRy0BOZoARBvWP2AVzZnSEZxZGNoVCsmKGWwMIByis7DYGXcBR KxDTI5MLNcFKQuOQTnDBclGZAyKTW2PYLbKZDnWXLbVZ2VRoKmKKUaWVEeDSGyPVUiYNEogr9MJTAaZF HbObN5LWUaXLPrDEOyKOteGHPjNLF2OIq2ZTVlUZHk UR5CLnHhGKPvXNG8FBCbOCZgGWBdib0TXIRqMQIsMdJ3FGYfLURwOKYlSXblNZZlZKS8PCq1RPMjBQQa GF7GCsRjLEMhVIx3OMRfOFFcFLEsyz1OZSMfMFYhGPrcVFEsVDOrYTSvAIe8lwCoaVDyKLe3VQ7FU6Wk tlHyCaLDJp8To889IIJsRMIfFs4AA2qeNs0lUFFxRI ZPTd8LSYr4NVAlPIF7NzIcKbWaXDI3BWM9VNLzWps5QaZaUvRzWtl+SEtrAuHhNGObSPTxPeJ8SQW9AB VrQLH8QAm4BmHcESErCp8qYHIREw9+EOypcWOekBtvCXHUXbM1MCG5SDczJENWBj4A ID Date Data Source [id number] 05/29/2021 05:15:00 [place] [address] PHONE: [phone] FAX: [phone] Name .................. : JOLLY Kathleen Acct Number.................. : [id number] ROOM. ................. : VT-17 Number ................... : [id number] Stay type ............. : E/R Discharge Date......... ... : 05/28/21 Admit Date ......... : 05/27/21 Admit Phys .................... : MEAGHAN Penaloza Date of ....... : 1980 Family Phys ................... : NEERU PICKETT Phone .................. : [phone] Age ................................ : 41 Film# .................. .:[id number] Sex ................................. : F Unsigned transcriptions are preliminary reports and do not represent a medical or legal document [place] [id number] COMPLETE:05/28/21 01:55 ADB [id number] Reason(s): ovarian cyst ULTRASOUND PELVIS INDICATION: Ovarian cyst. Per technologist lower abdominal pain and vomiting for 2 days. No history of malignancy. COMPARISON: Noted. Correlation with recent CT. Preliminary report for this exam was provided by [facility] . TECHNIQUE: Ultrasound of the pelvis is performed using transabdominal technique. FINDINGS: Uterus: Size 8.4 x 5.2 x 5.9 cm. No focal uterine masses. Endometrium: thickness is 0.2 mm. Right ovary: 3.0 x 3.5 x 3.5 cm. No ovarian or adnexal masses. Doppler imaging shows blood flow to the ovary. There may be a trace of adjacent fluid. Left Ovary: 12.8 x 0.6 x 10.8 cm. the majority of this has an appearance which is hypoechoic but with scattered internal echoes not representing simple fluid. Complex fluid suspected.. Along the margin there is a more echogenic area which may correspond to the hyperdense component on CT. This may represent adequately aggregated clot. No internal Doppler flow is identified.. Doppler imaging shows blood flow to the ovary. Trace of free fluid. IMPRESSION: No confirmed right adnexal mass. The small hyperdense area on the prior CT Page 1 of 2 [facility] [address] [place] [address] [place] [address] PHONE: [phone] FAX: [phone] Name .................. : JOLLY Kathleen Acct Number.................. : [id number] ROOM. ................. : VT-17 MR Number ................... : [id number] Stay type ............. : E/R Discharge Date......... ... : 05/28/21 Admit Date ......... : 05/27/21 Admit Phys .................... : MEAGHAN Penaloza Date of ....... : 1980 Family Phys ................... : NEERU PICKETT Phone .................. : [phone] Age ................................ : 41 Film# .................. .:[id number] Sex ................................. : F Unsigned transcriptions are preliminary reports and do not represent a medical or legal document [place] [id number] COMPLETE:05/28/21 01:55 ADB [id number] Reason(s): ovarian cyst might not be detectable if small hemorrhagic cyst is equivalent echogenicity to solid ovarian tissue. Large left adnexal lesion. Heterogeneous appearance with marginal higher echogenicity material and central dominant hypoechoic appearance without internal Doppler flow probably complex fluid. This may represent complex fluid and clot. Findings may represent a large hemorrhagic cyst. Ovarian neoplasm/malignancy not excluded. If there will be no other direct intervention to assess left adnexal lesion repeat ultrasound is recommended to confirm resolution. Electronically Reviewed and Signed By Thomas Monson MD , 05/29/21 17:15, SCB Transcribe Initials: DZ , Transcribe Date: 05/28/21 09:09, Dictation Date: Copy for: EMERGENCY DEPT via modem Copy for: 710 MED REC DISCHARGED Page 2 of 2 Name Value Range Interpretation Code Description Data Catherine rce(s) Supporting Document(s) ID Date Data Source [id number] 05/29/2021 05:14:00 PM EDT [facility] [address] [place] [address] PHONE: [phone] FAX: [phone] Name .................. : JOLLY Kathleen Acct Number.................. : [id number] ROOM. ................. : VT-17 Number ................... : [id number] Stay type ............. : E/R Discharge Date......... ... : 05/28/21 Admit Date ......... : 05/27/21 Admit Phys .................... : MEAGHAN Penaloza Date of ....... : 1980 Family Phys ................... : NEERU PICKETT Phone .................. : [phone] Age ................................ : 41 Film# .................. .:[id number] Sex ................................. : F Unsigned transcriptions are preliminary reports and do not represent a medical or legal document CT ABD & PELV W/[place] ORAL W/[place] [address] COMPLETE:05/27/21 21:54 W 70074 Reason(s): Abdominal Pain CT ABDOMEN AND PELVIS WITHOUT IV CONTRAST INDICATION: Abdominal pain. No specific site of tenderness. COMPARISON: None IV CONTRAST: None Preliminary report for this exam was provided by [facility] . One or more of the following dose reduction techniques were utilized in effectively lowering the radiation dose for this examination: Automated Exposure Control, Adjustment of the mA and/or kV according to patient size, or Iterative reconstruction. FINDINGS: LUNG BASES: No pulmonary nodules or masses. No pleural effusions. LIVER/BILIARY: Normal liver. Gallbladder mildly distended but no surrounding inflammation or stones. No biliary ductal dilatation is identified. SPLEEN: Normal. PANCREAS: Normal. ADRENALS: Normal bilaterally. KIDNEYS/: Normal kidneys without hydronephrosis. Grossly normal bladder. The uterus does not appear abnormally enlarged. Page 1 of 3 [place] [address] PHONE: [phone] FAX: [phone] Name .................. : [facility]ATES [facility] [id number] [facility]... : [id number] Stay type ............. : E/R Discharge Date......... ... : 05/28/21 Admit Date ......... : 05/27/21 Admit Phys .................... : MEAGHAN Penaloza Date of ....... : 1980 Family Phys ................... : SIDDIQI PIYUSH Phone .................. : [phone] Age ................................ : 41 Film# .................. .:[id number] Sex ................................. : F Unsigned transcriptions are preliminary reports and do not represent a medical or legal document CT ABD & PELV W/[place] OR[place] W/[place] [address] COMPLETE:05/27/21 21:54 W 24362 Reason(s): Abdominal Pain Right adnexal region shows complex areas of low potentially tubular and smaller focal increased attenuation of less than focal calcification no focal fat attenuation.. Possible adnexal lesion and/or tubal enlargement. Cyst or follicle hemorrhage possible. Subtle adjacent fat stranding. Left adnexal mass approximately 11 x 8 x 12 cm. Majority is slightly denser than simple fluid. Hyperdense area along the left inferior margin possibly layered clot. Trace of free pelvic fluid. BOWEL/GI: No bowel obstruction. No appendicitis, colitis, or diverticulitis. No free fluid, focal fluid collection or free air. NODES/RETROPERITONEUM: No adenopathy. No AAA. SKELETAL: Mild lower thoracic degenerative disc change. IMPRESSION: Large left adnexal mass with component slightly denser than fluid and higher attenuation. Suspect hemorrhagic cysts. Neoplasm not excluded. Complex right adnexal attenuation and mild adjacent stranding. Possible tubal enlargement. Possible hemorrhagic cyst component. There is a separately reported ultrasound of the pelvis. Electronically Reviewed and Signed By Thomas Monson MD , 05/29/21 17:14, SCB Transcribe Initials: UMA , Transcribe Date: 05/28/21 09:07, Dictation Date: Copy for: EMERGENCY DEPT via [facility] Page 2 of 3 [facility] [address] [place] [address] PHONE: [phone] FAX: [phone] Name .................. : JOLLY Kathleen Acct Number.................. : [id number] ROOM. ................. : VT-17 Number ................... : [id number] Stay type ............. : E/R Discharge Date......... ... : 05/28/21 Admit Date ......... : 05/27/21 Admit Phys .................... : MEAGHAN Penaloza Date of ....... : 1980 Family Phys ................... : NEERU PICKETT Phone .................. : [phone] Age ................................ : 41 Film# .................. .:[id number] Sex ................................. : F Unsigned transcriptions are preliminary reports and do not represent a medical or legal document CT ABD & PELV W/[place] [address] COMPLETE:05/27/21 21:54 SMW [id number] Reason(s): Abdominal Pain Copy for: 710 MED REC DISCHARGED Page 3 of 3 Name Value Range Interpretation Code Description Data Catherine rce(s) Supporting Document(s) ID Date Data Source [id number] 05/27/2021 07:05:00 PM EDT [facility] 1 OrderSheet [facility] [address] [place] [address] Phone #: ext- [phone] 05/27/2021 19:05 Patient: MILAN AZEVEDO Sex: F : 1980 Age: 41yWEIGHT:79.3 kg HEIGHT:63 inches BMI:31.0ALLERGIES: No Known Drug AllergyCHIEF COMPLAINT: vomitingDIAGNOSIS: Vomiting, Cyst of ovaryLAB ORDERSOrder Description Priority Entered Acknowledged InitialedCMP STAT 19:40 05/27/2021 19:41 Meaghan Alfonso Jack ; Tim AlvarezLipase STAT 19:40 05/27/2021 19:41 Meaghan Alfonso Jack ; Tim AlvarezUrinalysis (Clean STAT 19:40 05/27/2021 23:32 Rosalba,Catch) Kahlil Mcelroy ; Dionne AlvarezBeta-HCG, Qual STAT 19:40 05/27/2021 23:32 Rosalba,Urine Kahlil Mcelroy ; Dionne AlvarezCBC w Diff STAT 19:40 05/27/2021 19:41 Meaghan Alfonso Jack ; Tim AlvarezDIAGNOSTIC STUDY ORDERSOrder Description Priority Entered Acknowledged InitialedCT ABD PEL W/O STAT 19:40 05/27/2021 19:41 Sorbero,Oral W/O IV Kahlil Mcelroy ; Tim R.NMinhContrast(Oxygen?(No))(IV?(Yes)) NOTES: left falnk pain Reason for Study: Abdominal PainUS PELVIC STAT 22:02 05/27/2021 22:19 Sorbero,COMPLETE W TV Kahlil Mcelroy ; Tim R.NMinhIF NEEDED(Oxygen?(No))(IV?(No)) Reason for Study: ovarian cystMEDICATION/IV/DRIP/FLUID ORDERSOrder Description Priority Entered Acknowledged InitialedPhenergan IV 25mg 19:41 05/27/2021 20:06 Sorbero,in 50mL NS, give Kahlil Mcelroy ; Tim R.Elizabeth 2 OrderSheet [facility] Emergency Department [address] [place] [address] Phone #: ext- [phone] 05/27/2021 19:05 Patient: MILAN AZEVEDO Sex: F : 1980 Age: 41ywide open: 25 mg(NOW x1, HIGHALERTMEDICATION)Toradol IVP 30 mg 19:41 05/27/2021 20:05 Sorbero,(NOW x1) Kahlil Mcelroy ; Tim R.N.NS IV 1000 mL 19:41 05/27/2021 20:05 Sorbero,Bolus: : Bolus 1000 Kahlil Mcelroy ; Tim R.N.mL (X1)NS IV 1000 mL 21:29 05/27/2021 21:33 Sorbero,Bolus: : Bolus 1000 Kahlil Mcelroy ; iTm R.N.mL (X1)[place] (5-325mg) 00:30 05/28/2021 Ack'd: 00:31 Savage HopkinsnPO 1 tab (HIGH Kahlil Mcelroy ; Cancelled: Other 00:37 Epifanio HopkinsERTDEONTEION)Zofran 4 mg IVP X 1 00:30 05/28/2021 Ack'd: 00:31 00:36 Sandeep,dose: 4 mg (NOW Kahlil Mcelroy ; Mala Hopkinsnx1)THM 00:37 05/28/2021 Ack'd: 00:37 00:41 Sandeep,HYDROcodone-AP Kahlil Mcelroy ; Mala HopkinsnAP (5-325mg)PO 1tab (NOW x1, HIGHALERTMEDICATION)GENERAL ORDERSOrder Description Priority Entered Acknowledged Initialed[Electronically signed by Dionne Navarrete R.N. (00:49 05/28/2021)][Electronically signed by Kahlil Mcelroy (07:07 05/28/2021)][Electronically locked by Dionne Navarrete R.N. (00:49 05/28/2021)] Name Value Range Interpretation Code Description Data Catherine rce(s) Supporting Document(s) ID Date Data Source [id number] 05/27/2021 07:05:00 PM EDT [facility] 1 Medication Reconciliation Report [facility] Emergency Department [address] [place] [address] Phone #: ext- [phone] 05/27/2021 19:05 Patient: MILAN AZEVEDO Sex: F : 1980 Age: 41yWeight: 79.3 kgHeight/Length: 63 in.BMI: 31.0ALLERGIES: No Known Drug AllergyThe patient's Home Medications are listed below:STOP TAKING THE FOLLOWING MEDICATIONS: Cymbalta OralCONTINUE TAKING THE FOLLOWING MEDICATIONS: Lisinopril-hydroCHLOROthiazide Oral (20-12.5 mg) 1 tablet, daily tiZANidine HCl OralThe source(s) of the original Home Medication information:Not obtained.The following Medications were given to the patient in the Emergency Department:NS [IV] IV Fluids bolus 0, then 1000 mL/hr, administered: 20:00 05/27/2021Toradol [IVP] IVP 30 mg, administered: 20:00 05/27/2021henergan [IVPB] IVPB bolus 0, then 25 mg 1000 mL/hr, administered: 20:06 05/27/2021NS [IV] IV Fluids bolus 0, then 1500 mL/hr, administered: 21:33 05/27/2021Zofran [IVP] IVP 4 mg, administered: 00:36 05/28/2021HYDROCODONE-APAP (5-325MG) [PO] PO 1 tab, administered: 00:41 05/28/2021The following Medications were prescribed to the patient:hydrocodone 5 mg-acetaminophen 325 mg tablet Take 1 tablet every six hours -- Dispense 15 tablet.Refills: 0. Substitution permitted. 2 Medication Reconciliation Report [facility] Emergency Department [address] [place] [address] Phone #: ext- [phone] 05/27/2021 19:05 Patient: MILAN AZEVEDO Sex: F : 1980 Age: 41y[facility]acy - [facility] [address] [place], [place] [id number]. . -- Kahlil McelroyHydrocodone/APAP 5mg / 325mg: take 1 orally. Dispense (1). No refill. -- Kahlil Mcelroy Name Value Range Interpretation Code Description Data Catherine rce(s) Supporting Document(s) ID Date Data Source [id number] 05/27/2021 07:05:00 PM EDT [facility] 1 Medication Administration Record [facility] Emergency Department [address] [place] [address] Phone #: ext- [phone] 05/27/2021 19:05 Patient: MILAN AZEVEDO Sex: F : 1980 Age: 41yWeight: 79.3 kgHeight/Length: 63 inBMI: 31ALLERGIES: No Known Drug Allergy Date/Time Medication Administered Medication OrderedStart PHENERGAN [IVPB] Phenergan IV 25mg in 50mL NS,20:06 05/27/2021 Dose: 25 mg IVPB give wide open: 25 mg (NOW x1,Sorbero, Tim, R.N. Rate: 1000 mL/hr over 10 minute(s) HIGH ALERT MEDICATION)---- Dispensed: 50 mL bagStop Site: #1 left AC20:14 1STim guerrero RMinhNMinhGiven TORADOL [IVP] (KETOROLAC Toradol IVP 30 mg (NOW x1)20:00 05/27/2021 TROMETHAMINE)Tim Alfonso RMinhNMinh Dose: 30 mg IVP Site: #1 left ACStart NS [IV] NS IV 1000 mL Bolus: : Bolus [id number] 05/27/2021 Dose: IV Fluids mL (X1)Tim Alfonso R.NMinh Rate: 1000 mL/hr over 1 hour(s)---- Dispensed: 1000 mL bagStop Site: #1 left AC21:13 1STim guerrero R.NMinhStart NS [IV] NS IV 1000 mL Bolus: : Bolus [id number]:33 05/27/2021 Dose: IV Fluids mL (X1)Tim Alfonso R.NMinh Rate: 1500 mL/hr over 40 minute(s)---- Dispensed: 1000 mL bagStop Site: #1 left AC22:18 1LDionne parnell R.N.Given ZOFRAN [IVP] (ONDANSETRON HCL) Zofran 4 mg IVP X 1 dose: 4 mg00:36 05/28/2021 Dose: 4 mg IVP (NOW x1)Mala Hopkins, Site: #1Given HYDROCODONE-APAP (5-325MG) [PO] THM HYDROcodone-APAP00:41 05/28/2021 (ACETAMINOPHEN-HYDROCODONE) (5-325mg)PO 1 tab (NOW x1Darío Katelyn, Dose: 1 tab PO ALERT MEDICATION) Name Value Range Interpretation Code Description Data Catherine rce(s) Supporting Document(s) ID Date Data Source [id number] 05/27/2021 07:05:00 PM EDT [facility] 1 General Instructions [facility] Emergency Department [address] [place] [address] Phone #: [phone]- [phone] 05/27/2021 19:05 Patient: MILAN AZEVEDO Sex: F : 1980 Age: 41yBilious vomiting with dehydration.Single left ovarian cyst.INSTRUCTIONS(Complex left Ovarian cyst 12 x9 x 7 cm).Warnings: Further evaluation is necessary.SEDATIVE MEDICATION: You were given sedative medication during your visit. Do not drive or operatedangerous machinery.GENERAL WARNINGS: Return or contact your physician immediately if your condition worsens orchanges unexpectedly, if not improving as expected, or if other problems arise.Your Current Medications: Your current home medications have been reviewed.STOP TAKING THE FOLLOWING MEDICATIONS:Cymbalta Oral.CONTINUE TAKING THE FOLLOWING MEDICATIONS:Lisinopril-hydroCHLOROthiazide Oral : Tablet 20-12.5 mg, 1 tablet daily.tiZANidine HCl Oral.Prescription Medications:Hydrocodone/APAP 5mg / 325mg: take 1 orally. Dispense (1). No refill.hydrocodone 5 mg-acetaminophen 325 mg tablet Take 1 tablet every six hours -- Dispense 15 tablet.Refills: 0. Substitution permitted.Pharmacy - [facility] - [address] [place] [phone]. FaxNumber: [phone].Understanding of the discharge instructions verbalized by patient.Follow-up with: [facility], , , [address], [place], [address] Follow up in two days even if well. Call for an appointment. Reason for referral: evaluation. ADDITIONAL INFORMATION 2 General Instructions [facility] Emergency Department [address] [place] [address] Phone #: ext- [phone] 05/27/2021 19:05 Patient: MILAN AZEVEDO Sex: F : 1980 Age: 41yVomiting (Adult)Vomiting is a common symptom that may be due to different causes. These include gastroenteritis("stomach flu"), food poisoning and gastritis. There are other more serious causes of vomiting whichmay be hard to diagnose early in the illness. Therefore, it is important to watch for the warning signslisted below.The main danger from repeated vomiting is dehydration. This is due to excess loss of water andminerals from the body. When this occurs, your body fluids must be replaced.Home care If symptoms are severe, rest at home for the next 24 hours. Because your symptoms may be from an infection, wash your hands often and well. If soap and water are not available, use alcohol-based warehouse order selector to keep from spreading the infection to others. Wash your hands for at least 20 seconds. Humming the happy birthday song twice while you wash is an easy way to make sure you've washed for 20 seconds. Wash your hands after using the toilet, before and after preparing food, before eating food, after changing a diaper, cleaning a wound, caring for a sick person, and blowing your nose, coughing, or sneezing. You should also wash your hands after caring for someone who is sick, touching pet food, or treats, and touching an animal, or animal waste. You may use acetaminophen or NSAID medicines like ibuprofen or naproxen to control fever, unless another medicine was prescribed. If you have chronic liver or kidney disease or ever had a stomach ulcer or gastrointestinal bleeding, talk with your doctor before using these medicines. Aspirin should never be used in anyone under 18 years of age who is ill with a fever. It may cause severe liver damage. Don't use NSAID medicines if you are already taking one for another condition (like arthritis) or are on aspirin (such as for heart disease, or after a stroke) Don't use tobacco and or drink alcohol, which may worsen your symptoms. If medicines for vomiting were prescribed, take as directed. Once vomiting stops, then follow these guidelines:During the first 12 to 24 hours follow the diet below: Fruit juices. Apple, grape juice, clear fruit drinks, and electrolyte replacement drinks. Beverages. Soft drinks without caffeine; mineral water (plain or flavored), decaffeinated tea and coffee. 3 General Instructions [facility] Emergency Department [address] [place] [address] Phone #: ext- [phone] 05/27/2021 19:05 Patient: MILAN AZEVEDO Sex: F : 1980 Age: 41y Soups. Clear broth and bouillon Desserts. Plain gelatin, ice pops, and fruit juice bars. As you feel better, you may add 6 to 8 ounces of yogurt per day.During the next 24 hours you may add the following to the above: Hot cereal, plain toast, bread, rolls, crackers Plain noodles, rice, mashed potatoes, chicken noodle or rice soup Unsweetened canned fruit such as applesauce, bananas (avoid pineapple and citrus) Limit caffeine and chocolate. No spices or seasonings except salt.During the next 24 hours:Gradually resume a normal diet, as you feel better and your symptoms lessen.Follow-up careFollow up with your healthcare provider, or as advised.When to seek medical adviceCall your healthcare provider right away if any of these occur: Constant right-sided lower belly pain or increasing general belly pain Continued vomiting (unable to keep liquids down) for 24 hours Vomiting blood or coffee grounds Swollen belly Frequent diarrhea (more than 5 times a day); blood (red or black color) or mucus in diarrhea Reduced urine output or extreme thirst Weakness, dizziness or fainting Unusually drowsy or confused Fever of 100.4F (38C) oral or higher, or as directed Yellow color of the eyes or skin 1115-7004 [employer]. [address] [place] [address], [place] [address]. All rights reserved. This information is not intended as asubstitute for professional medical care. Always follow your healthcare professional's instructions. 4 General Instructions [facility] Emergency Department [address] [place] [address] Phone #: ext- [phone] 05/27/2021 19:05 Patient: MILAN AZEVEDO Sex: F : 1980 Age: 41yOvarian CystsThe ovaries are two small organs located on each side of a woman's uterus (womb). They are part ofthe female reproductive system. Ovarian cysts are sacs filled with fluid or tissue that form on or insidethe ovaries.Ovarian cysts are common in women, especially during childbearing years. There are different typesof cysts. Most are harmless (benign) and go away on their own. They often cause no symptoms. Ifsymptoms do occur, they can include mild pain or pressure in the lower belly (abdomen).Cysts that are large or break (rupture) may cause more severe pain and symptoms. In these cases,you may need hospital care or treatment such as surgery. You may need more extensive treatment ifa cyst causes an ovary to twist (called torsion) or if your doctor suspects your cyst is cancerous. Keepin mind that most cysts are not cancerous, however.General care To help relieve pain, your healthcare provider may recommend using [id number] pain medicine. If needed, your provide may prescribe stronger pain medicine. Depending on the type of cyst you have, your healthcare provider may advise taking control pills. These help shrink cysts in certain cases. They may also help prevent new cysts from forming. Be sure to take these medicines as directed if they are prescribed. Your healthcare provider may advise you to watch your symptoms over time to see if they go away or worsen. Regular ultrasound tests may also be advised. These can help check if a cyst goes away or grows in size. 5 General Instructions [facility] Emergency Department [address] [place] [address] Phone #: ext- [phone] 05/27/2021 19:05 Patient: MILAN AZEVEDO Sex: F : 1980 Age: 41yFollow-up careFollow up with your healthcare provider, or as advised.When to seek medical adviceCall your healthcare provider right away if any of these occur: Pain worsens or fails to get better with home treatment Fever of 100.4F (38C) or higher (or other fever amount directed by your healthcare provider) Nausea and vomiting Weakness, dizziness, or fainting Abnormal vaginal bleeding [id number] [employer]. [address] [place] [address]. All rights reserved. This information is not intended as asubstitute for professional medical care. Always follow your healthcare professional's instructions. You have been given the following additional information: Vomiting (Adult) Ovarian Cyst(Electronically signed by Kahlil Mcelroy 05/28/2021 07:07) Name Value Range Interpretation Code Description Data Catherine rce(s) Supporting Document(s) ID Date Data Source [id number] 05/27/2021 07:05:00 PM EDT [facility] 1 Clinical Report - Nurses [facility] Emergency Department [address] [place] [address] Phone #: ext- [phone] 05/27/2021 19:05 Patient: MILAN AZEVEDO Sex: F : 1980 Age: 41yTRIAGEArrived by private vehicle. Historian: patient.Acuity: LEVEL 3.Chief Complaint: NAUSEA and VOMITING.19:16 05/27/21. Alert. No acute distress.Onset. (2 days ago). ( Patient reports she was seen in this ED 2 days ago for vomiting and prescribedzofran. States she has been vomiting ever since her last visit and zofran is not helping. Reports [id number] times today, denies any blood in emesis. States she had sharp pain across abdomen 1 hour ago.Denies diarrhea. Denies fevers.). Last oral intake by patient was two days ago.SEPSIS SCREEN: SIRS SCREEN NEGATIVE: heart rate greater than 90. SEPSIS SCREEN NEGATIVE.No suspected or confirmed signs of infection present. --19:16 05/27/21 Krystle Phillips R.N.19:16 05/27/2021 BP: 142/79. HR: 94. RR: 18. Temp: 98.3 F. Pain level now 810. --19:16 05/27/21 Krystle Phillips R.N.Weight: 79.3 kg. Height/Length: 63 inches. BMI: 31. --19:14 05/27/21 Krystle Phillips R.N.MedicationsCymbalta Oral. Lisinopril-hydroCHLOROthiazide Oral (Tablet 20- 12.5 mg) 1 tablet, daily. tiZANidine HCl Oral. --19:14 05/27/21 Krystle Phillips R.N.AllergiesNo Known Drug Allergy. --19:14 05/27/21 Krystle Phillips R.N.PROBLEMS:Ovarian Cyst.Hypertension.Slipped Capital Femoral Epiphysis.Sciatica. --19:14 05/27/21 Krystle Phillips R.N.ADDITIONAL SURGERIES:Appendectomy..Hip Surgery.Shoulder Surgery. --19:14 05/27/21 Krystle Phillips R.N. 2 Clinical Report - Nurses [facility] Emergency Department [address] [place] [address] Phone #: ext- [phone] 05/27/2021 19:05 Patient: MILAN AZEVEDO Sex: F : 1980 Age: 41y History 19:16 05/27/21. PAST MEDICAL HX: Immunizations: up-to-date. Last normal menstrual period- May 25. ( has had covid vaccine). SOCIAL HX: Never smoker. No alcohol use or drug use. She was offered HIV testing but declined and hepatitis C testing but declined. She has not traveled outside the [place] Infectious disease exposure: The patient was not exposed to C-diff, MRSA or Coronavirus. SELF HARM ASSESSMENT: Self harm assessment was performed. The patient answered "no" to the question(s) "Have you recently felt down, depressed, or hopeless?", "Do you have thoughts of harming or killing yourself?", "Do you have a plan for harming or killing yourself?" and "Have you recently had thoughts about harming or killing others?". ABUSE ASSESSMENT: No report of abuse. NUTRITIONAL RISK ASSESSMENT: The nutritional risk assessment revealed no deficiencies. FUNCTIONAL ASSESSMENT: Functional assessment: no impairments noted. LEARNING NEEDS ASSESSMENT: The learning needs assessment revealed no barriers. FALL RISK ASSESSMENT: Fall risk assessment completed. No risk factors identified. SKIN INTEGRITY ASSESSMENT: Skin integrity risk assessment completed. No skin integrity risk identified. --19:16 05/27/21 Krystle Phillips R.N. Interventions 19:16 05/27/21. Identification band on patient. To treatment room. --19:16 05/27/21 Krystle Phillips R.N.PHYSICAL [id number] 05/27/21. Ambulatory to room. Patient gowned.GENERAL / NEURO / PSYCH: Alert. Oriented X 4. Appears in no acute distress.HEENT: Mucous membranes are pink.RESPIRATORY: Respirations not labored. Breath sounds within normal limits.CVS: Capillary refill less than 2 seconds.GI / : Abdomen soft and nontender. Bowel sounds within normal limits.SKIN: Skin is warm and dry. --19:27 05/27/21 Tim Alfonso R.N.NURSING PROGRESS NOTES19:17 05/27/21. NIBP monitor and pulse oximeter placed on patient. Patient gowned. Reassurancegiven. Two patient identifiers checked. Call light placed in reach. Side rails up x 1. Bed placed inlowest position. Brakes of bed on. Patient ready for evaluation- ED physician and PA notified. --19: Krystle Phillips R.N. 3 Clinical Report - Nurses [facility] Emergency Department [address] [place] [address] Phone #: ext- [phone] 05/27/2021 19:05 Patient: MILAN AZEVEDO Sex: F : 1980 Age: 41y19:49 05/27/2021 Site #1 started via IV in the left antecubital space with an 20g angiocath, with aseptictechnique and good blood return; one attempt. Blood drawn: rainbow set. Labeled in the presence of thepatient and sent to the lab. Saline lock flushed with 10 mL saline. --20:05/27/21 Tim Alfonso, R.NMinh20:00 05/27/2021 Started bag #1 1000 mL IV Fluids NS; at 1000 mL/hr over 1 hour(s) via site #1 via IVpump. Allergies verified and confirmed 5 rights. IV patency established. IV site checked: no pain, redness,or swelling. IV flushed thoroughly pre- and post-medication administration. Information reviewed withpatient including reason for taking this medication, signs of allergic reaction and precautions. Verbalizesunderstanding. --20:05/27/21 Tim Alfonso R.N.20:00 05/27/2021 Toradol (Ketorolac Tromethamine) IVP 30 mg given over 2 minute(s) via site #1.Allergies verified and confirmed 5 rights. IV patency established. IV site checked: no pain, redness, orswelling. IV flushed thoroughly pre- and post-medication administration. IVP given by RN. Informationreviewed with patient including reason for taking this medication, si gns of allergic reaction and precautions.Verbalizes understanding. --20:05/27/21 Tim Alfonso R.N.20:06 05/27/2021 Started 25 mg of Phenergan IVPB in bag #1 50 mL; at 1000 mL/hr over 10 minute(s) viasite #1. via IV pump. Allergies verified and confirmed 5 rights. IV patency established. IV site checked: nopain, redness, or swelling. IV flushed thoroughly pre- and post-medication administration. Informationreviewed with patient including reason for taking this medication, signs of allergic reaction and precautions.Verbalizes understanding. --20:06 05/27/21 Tim Alfonso R.N.20:14 05/27/2021 Phenergan IVPB via IV site #1 Discontinued: bag #1 completed. Total amount infused:50 mL. --20:29 05/27/21 Tim Alfonso R.N.20:29 05/27/21. Patient transported to [place] by wheelchair with radiology special procedure tech. --20:30 05/27/21 Tim Alfonso R.N.20:47 05/27/21. Patient returned from CT by wheelchair with radiology special procedure tech. --20:47 05/27/21 Tim Alfonso R.N.20:56 05/27/21. Reassurance given. Reassessment acuity: LEVEL 3. Reassessment after medicationadministered. No adverse reaction. Pain still present but improving. Nausea gone now. Reassessmentafter fluids administered. She is calm and resting quietly and has had no adverse reaction. Overallpatient status is improved- she states feels better. Two patient identifiers checked. Call light placed inreach. Bed placed in lowest position. Brakes of bed on. MED CARE MANAGER not notified that patient ready forevaluation. --21:06 05/27/21 Tim Alfonso R.N.21:13 05/27/2021 IV Fluids NS via IV site #1 Discontinued: bag #1 completed. Total amount infused: 1000mL. IV patency establi shed. IV site checked: no pain, redness, or swelling. IV flushed thoroughly. --21:139 Tim Alfonso R.N.21:33 05/27/2021 Started bag #2 1000 mL IV Fluids NS; at 1500 mL/hr over 40 minute(s) via site #1 via IV 4 Clinical Report - Nurses [facility] Emergency Department [address] [place] [address] Phone #: ext- [phone] 05/27/2021 19:05 Patient: MILAN AZEVEDO Sex: F : 1980 Age: 41yp[age]. Allergies verified and confirmed 5 rights. IV patency established. IV site checked: no pain, redness,or swelling. IV flushed thoroughly pre- and post- medication administration. Information reviewed withpatient including reason for taking this medication, signs of allergic reaction and precautions. Verbalizesunderstanding. --21:33 05/27/21 Tim Alfonso R.N.21:37 05/27/21. Reassurance given. Reassessment acuity: LEVEL 3. The patient reports nocomplaints, she is calm and resting quietly and she has had no adverse reaction. Overall patient status isimproved- she states feels better. Two patient identifiers checked. Call light placed in reach. Side railsup x 1. Bed placed in lowest position. Brakes of bed on. --21:43 05/27/21 Tim Alfonso R.N.22:18 05/27/2021 IV Fluids NS via IV site #1 Discontinued: bag #2 infused. Total amount infused: 1000 mL.IV patency established. IV site checked: no pain, redness, or swelling. IV flushed thoroughly. --22: Dionne Navarrete R.N.23:32 05/27/21. BP: 149/78. MAP: 101. HR: 89. RR: 17. O2 saturation: 99% on room air. --23: Dionne Navarrete R.N.The patient reports no complaints and she is resting quietly.GI / : Denies nausea, diarrhea or vomiting. --23:33 05/27/21 Dionne Navarrete R.N.22:00 05/27/21. BP: 121/79. MAP: 93. HR: 73. RR: 16. O2 saturation: 98%. Pain level now: 0/10.--00:16 05/28/21 Luis Hopkins entry - 22:00 05/27/21. Reassurance given.Rounding: Pain: denies pain. Position: states comfortable. Personal care / toileting: denies toileting needs.Proximity of possessions / care items: call light within easy reach. Plug ins: assured IV pump plugged in;checked status of equipment in use; located all cords, tubes, and lines to prevent fall hazard. --00:161 Savage Hopkinsn22:30 05/27/21. BP: 129/78. MAP: 95. HR: 79. RR: 16. O2 saturation: 100%. Pain level now: 0/10.--00:16 05/28/21 Lisseth Hopkins3:00 05/27/21. BP: 149/78. MAP: 101. HR: 79. RR: 17. O2 saturation: 99%. Pain level now: 0/10.--00:17 05/28/21 SandeepRoma maindarling entry - 23:00 05/27/21. Reassurance given.Rounding: Pain: denies pain. Position: states comfortable. Personal care / toileting: denies toileting needs.Proximity of possessions / care items: call light within easy reach. Plug ins: assured IV pump plugged in;checked status of equipment in use; located all cords, tubes, and lines to prevent fall hazard. --00: Lisseth Hopkins3:30 05/27/21. BP: 135/78. MAP: 97. HR: 74. RR: 15. O2 saturation: 99%. Pain level now: 0/10. 5 Clinical Report - Nurses [facility] Emergency Department [address] [place] [address] Phone #: ext- [phone] 05/27/2021 19:05 Patient: MILAN AZEVEDO Sex: F : 1980 Age: 41y --00:18 05/28/21 Mala Hopkins 00:00 05/28/21. BP: 134/72. MAP: 92. HR: 74. RR: 17. O2 saturation: 99%. Pain level now: 0/10. --00:18 05/28/21 Mala Hopkins late entry - 00:00 05/28/21. Reassurance given. Rounding: Pain: denies pain. Position: states comfortable. Personal care / toileting: denies toileting needs. Proximity of possessions / care items: call light within easy reach. Plug ins: assured IV pump plugged in; checked status of equipment in use; located all cords, tubes, and lines to prevent fall hazard. --00:18 05/28/21 Mala Hopkins 00:36 05/28/2021 Zofran (Ondansetron HCl) IVP 4 mg given over 2 minute(s) via site #1. Allergies verified and confirmed 5 rights. IV patency established. IV site checked: no pain, redness, or swelling. IV flushed thoroughly pre- and post-medication administration. IVP given by RN. Information reviewed with patient including reason for taking this medication, signs of allergic reaction and precautions. Verbalizes understanding. --00:36 05/28/21 Mala Hopkins.DISPOSITION / DISCHARGE 00:40 05/28/21. BP: 127/74. HR: 74. RR: 16. O2 saturation: 98%. Temp: 97.8 F. Pain level now 2/10. --00:41 05/28/21 Mala Hopkins 00:41 05/28/2021 HYDROCODONE-APAP (5-325MG) (Acetaminophen- HYDROcodone) PO 1 tab given. Allergies verified and confirmed 5 rights. Information reviewed with patient including reason for taking this medication, signs of allergic reaction, precautions and sedative warning. Verbalizes understanding. (Take home medication). --00:41 05/28/21 Mala Hopkins Condition at departure: improved. The goals identified in the patient's plan of care were met. No learning barriers present. Discharge instructions provided and reviewed with the patient. Reviewed warnings. Reviewed medication(s). Patient verbalized understanding. Written instructions provided in Swazi. The patient was dischar ged by the physician. She was discharged home. She left ambulatory and via private vehicle. Patient driving. --00:48 05/28/21 Dionne Navarrete R.N.Locked/Released at 05/28/2021 00:49 by Dionne Navarrete R.N. Name Value Range Interpretation Code Description Data Catherine rce(s) Supporting Document(s) ID Date Data Source [id number] 0001 05/27/2021 07:05:00 PM EDT [facility] 1 Clinical Report - Physicians/Mid Levels [facility] Emergency Department [address] [place] [address] Phone #: ext- [phone] 05/27/2021 19:05 Patient: MILAN AZEVEDO Sex: F : 1980 Age: 41y Time Seen: 19:34 05/27/2021. Arrived- By private vehicle. Historian- patient.HISTORY OF PRESENT ILLNESS Chief Complaint: VOMITING. This started yesterday and is still present. It has been constant. The patient has had moderate, constant left-sided flank pain. She has had nausea, vomiting and abdominal pain. No diarrhea or constipation. Has recently been on antibiotics. The illness is described as moderate. (History of chronic left hip pain seen for elevated blood pressure two days ago. Vomiting since yesterday. No fever or diarrhea. new medication was cymbalta. back pain is not new no painful urination but was diagnosed with UTI two days ago. Pain started yesterday after discharge from ED. Diagnosed with ovarian cyst on MRI). Similar symptoms previously. Recent medical care: The patient was seen recently in the emergency department. REVIEW OF SYSTEMSNo fever, difficulty with urination, dark urine, headache or dizziness. No chest pain, difficulty breathing,skin rash, jaundice or fainting episodes. She has had muscle aches and back pain. Denies currentpregnancy. All other systems reviewed and are negative.PAST HISTORYSee nurses notes. Hypertension. No history of gallstones or diabetes mellitus. Problems: Pelvic Pain. Arthritis. (Left hip) Ovarian Cyst. Slipped [employer] Femoral Epiphysis. Sciatica. Additional Surgeries: Appendectomy. . Hip Surgery. Shoulder Surgery. Medications: 2 Clinical Report - Physicians/Mid Levels [facility] Emergency Department [address] [place] [address] Phone #: ext- [phone] 05/27/2021 19:05 Patient: MILAN AZEVEDO Sex: F : 1980 Age: 41y Cymbalta Oral. Lisinopril-hydroCHLOROthiazide Oral (Tablet 20-12.5 mg) 1 tablet, daily. tiZANidine HCl Oral. Allergies: No Known Drug Allergy.SOCIAL HISTORYNever smoker.ADDITIONAL NOTESThe nursing notes have been reviewed.PHYSICAL EXAMVital Signs: 05/27/2021 19:16 BP: 142/79. MAP: 100. HR: 94. RR: 18. Temp: 98.3 F.Appearance: Alert. Oriented X3. No acute distress.Eyes: Pupils equal, round and reactive to light. Eyes normal inspection.ENT: Nose normal. Pharynx normal.Neck: Normal inspection. Neck supple.CVS: Normal heart rate and rhythm. Heart sounds normal. Pulses normal.Respiratory: No respiratory distress. Painless inspiration. Breath sounds normal.Abdomen: Soft. Moderate tenderness diffusely and in the upper abdomen, periumbilical area and leftlower quadrant. Moderate additional tenderness in the periumbilical area and suprapubic area. Noorganomegaly. No mass. Obese.Back: Normal inspection. CVA tenderness. (left lumbar tenderness).Skin: Skin warm and dry. Normal skin color. No rash. Normal skin turgor.Extremities: Extremities exhibit normal ROM. No lower extremity edema.Neuro: Oriented X 3. No motor deficit. No sensory deficit.LABS, X-RAYS, AND EKGAbdominal CT: An ovarian cyst is present. No free fluid. hydrosalphinx. The study was interpreted bythe radiologist.Pelvic Sonogram: Uterus normal. An ovarian cyst is present. 9 x 7 x 12 cm cyst on right. The studywas interpreted by the radiologist.Laboratory Tests: CMP: (KELLIE: 05/27/2021 19:49) ( MsgRcvd 05/27/2021 20:30) Final results Test Result Flag Units (Reference) COMPREHENSIVE METABOLIC PANEL COMPREHENSIVE METABOLIC PANEL SODIUM 137 mEq/L (134 - 153) POTASSIUM 3.3 L mEq/L (3.6 - 5.0) CHLORIDE 99 mEq/L (98 - 107) CO2 20 L MEQ/L (22 - 30) GLUCOSE 111 H MG/DL (70 - 99) BUN 23 H MG/DL (7 - 21) CREATININE 1.9 H MG/DL (0.7 - 1.5) BUN/CREAT 12 (8 - 27) 3 Clinical Report - Physicians/[facility] Emergency Department [address] [place] [address] Phone #: ext- [phone] 05/27/2021 19:05 --------- Patient: MILAN AZEVEDO Sex: F : 1980 Age: 41y TOTAL PROTEIN 8.1 G/DL (6.3 - 8.2) ALBUMIN 4.8 G/DL (3.9 - 5.0) GLOBULIN 3.3 H GM/DL (2.4 - 3.2) A/G RATIO 1.5 (0.8 - 2.0) CALCIUM 9.9 MG/DL (8.4 - 10.2) TOTAL BILI <0.7 MG/DL (0.2 - 1.3) ALKALINE PHOS 75 U/L (38 - 126) SGOT/AST 18 U/L (5 - 40) SGPT/ALT 24 U/L (7 - 56) ANION GAP 18.0 H mmol/L (8.0 - 16.0) AGE 41 yrs NON-AA GFR 31 mL/min AFR AMER GFR 37 mL/min Male GFR Interprentation 20-49 yrs >60 mL/min Lgbhpy08-44 yrs >56 mL/min Normal 60-69 yrs >49 mL/min Normal 70-79yrs>42 mL/min Normal 80 and above >35 mL/min Normal Female GFRInterpretation 20-39 yrs >60 mL/min Normal 40-49 yrs >58 mL/minNormal 50-59 yrs >51 mL/min Normal 60-69 yrs >45 mL/min Xzalxu63-07 yrs >39 mL/min Normal 80 and above >32 mL/min NormalLipase: (KELLIE: 05/27/2021 19:49) ( [employer] 05/27/2021 20:29) Final results Test Result Flag Units (Reference) LIPASE 37 U/L (13 - 60)Urinalysis: (KELLIE: 05/27/2021 23:25) ( [employer] 05/27/2021 23:52) Final results Test Result Flag Units (Reference) URINALYSIS URINALYSIS SOURCE R COLOR Dk Yellow (NORMAL: Yello CLARITY turbid (NORMAL: Clear SPEC GRAVITY 1.020 (1.001 - 1.030 pH 6 (5 - 9) GLUCOSE NORM (NORMAL: Negat BILIRUBIN 1 (NORMAL: Negat KETONE 15 A (NORMAL: Negat PROTEIN 30 (NORMAL: Negat NITRITE NEG (NORMAL: Negat BLOOD 250 A (NORMAL: Negat LEUK EST 25 (NORMAL: Negat UROBILINOGEN 1 (less than 1.0 MICROSCOPIC See Below WBC 10 - 15 A (NORMAL: NONE RBC TNTC A (NORMAL: NONE EPITHELIAL MODERATE A (NORMAL: NONE BACTERIA 1+ SMALL (NORMAL: NONE MUCOUS 1+ (NORMAL: NONEBeta-HCG, Qual Urine: (KELLIE: 05/27/2021 23:25) ( [employer] 05/27/2021 23:50) Final results Test Result Flag Units (Reference) HCG URINE QUAL NEGATIVE (NORMAL: NEGAT HCG URINE QL REENTER NEGATIVE (NORMAL: NEGAT { KIT LOT # [id number] ){ KIT EXP DATE08.27.22 ){ PROCEDURAL CONTROL VALID) 4 Clinical Report - Physicians/Mid Levels [facility] Emergency Department [address] [place] [address] Phone #: [phone] 05/27/2021 19:05 Patient: MILAN AZEVEDO Sex: F : 1980 Age: 41y CBC w Diff: (KELLIE: 05/27/2021 19:49) ( MsgRcvd 05/27/2021 20:27) Final results Test Result Flag Units (Reference) CBC W/AUTOMATED DIFF COMPLETE BLOOD COUNT WBC 14.3 H 10/uL (4.2 - 11.0) RBC 4.60 10/uL (4.20 - 5.40) HEMOGLOBIN 13.4 g/dL (12.0 - 16.0) HEMATOCRIT 38.5 % (37.0 - 47.0) MCV 83.7 fL (81.0 - 101) MCH 29.1 pg (27.0 - 34.0) MCHC 34.8 g/dL (31.0 - 36.0) RDW 11.8 % (11.5 - 14.5) PLATELETS 391 10/uL (150 - 450) MPV 9.0 fL (7.4 - 10.4) NEUT 81.3 H % (37.0 - 80.0) LYMPH 10.7 L % (25.0 - 40.0) MONO 7.4 % (3.0 - 8.0) EOS 0.1 % (0.0 - 7.0) BASO 0.2 % (0.0 - 2.5) %IG 0.3 H % (0.0 - 0.0) %NRBC 0.0 % (0.0 - 0.0) #NEUT 11.60 H 10/uL (2.00 - 6.90) #LYMPH 1.53 10/uL (0.60 - 3.40) #MONO 1.06 H 10/uL (0.00 - 0.90) #EOS 0.02 10/uL (0.00 - 0.70) #BASO 0.03 10/uL (0.00 - 0.20) #IG 0.04 10/uL (0.00 - 0.10) #NRBC 0.00 10/uL (0.00 - 0.00) MANUAL DIFF SEE BELOW SEGS 81 H % (37 - 80) %LYMPH 13 L % (25 - 40) %MONO 6 % (3 - 8) RBC MORPH NOT INDICATED CT ABD PEL W/O Oral W/O IV Contrast: (KELLIE: 05/27/2021 19:40) ( MsgRcvd 05/27/2021 21:54) In Progress CT ABD Reason(s): Abdominal Pain TRANSPORTATION: S IV? IV?(Yes) O2? Oxygen?(No) Ro : No CMTS: left falnk pain.PROGRESS AND PROCEDURESCourse of Care: 19:47 05/27/21. Mild leukocytosis on last CBC. LFT's normal. Possible pyelonephritis orgastroenteritis 21:39 05/27/21. No vomiting in ED. Creatinine slightly elevated compared to yesterday. IV fluids continued. Given two liters of normal saline 23:58 05/27/21. abdominal pain and vomiting may be secondary to large ovarian cyst vs renal colic. CT scan demonstrated no hydroureter or renal stones. Positive for large ovarian mass 5 Clinical Report - Physicians/Mid Levels [facility] Emergency Department [address] [place] [address] Phone #: ext- [phone] 05/27/2021 19:05 Patient: MILAN AZEVEDO Sex: F : 1980 Age: 41y 00:31 05/28/21. Patient has an appointment with CONSTRUCTION EQUIPMENT TECHNICIAN in 2 weeks. Patient/family counseled. Old medical records ordered. Patient has had multiple ED visits. Disposition: Discharged. Condition: stable.CLINICAL IMPRESSION Bilious vomiting with dehydration. Single left ovarian cyst.INSTRUCTIONS (Complex left Ovarian cyst 12 x9 x 7 cm). Warnings: Further evaluation is necessary. SEDATIVE MEDICATION: You were given sedative medication during your visit. Do not drive or operate dangerous machinery. GENERAL WARNINGS: Return or contact your physician immediately if your condition worsens or changes unexpectedly, if not improving as expected, or if other problems arise. Your Current Medications: Your current home medications have been reviewed. STOP TAKING THE FOLLOWING MEDICATIONS: Cymbalta Oral. CONTINUE TAKING THE FOLLOWING MEDICATIONS: Lisinopril-hydroCHLOROthiazide Oral : Tablet 20-12.5 mg, 1 tablet daily. tiZANidine HCl Oral. Prescription Medications: Hydrocodone/APAP 5mg / 325mg: take 1 orally. Dispense (1). No refill. hydrocodone 5 mg-acetaminophen 325 mg tablet Take 1 tablet every six hours -- Dispense 15 tablet. Refills: 0. Substitution permitted. Pharmacy - [id number] - [address] [place] [address] [phone]. . Understanding of the discharge instructions verbalized by patient. Follow-up with: [facility], , , [address] [place], [address] Follow up in two days even if well. Call for an appointment. Reason for referral: evaluation. 6 Clinical Report - Physicians/Mid Levels [facility] Emergency Department [address] [place] [address] Phone #: ext- [phone] 05/27/2021 19:05 Patient: MILAN AZEVEDO Sex: F : 1980 Age: 41y(Electronically signed by Kahlil Mcelroy 05/28/2021 07:07) Name Value Range Interpretation Code Description Data Catherine rce(s) Supporting Document(s) ID Date Data Source [id number] 05/27/2021 07:05:00 PM EDT [facility] MILAN Gaytan VisitID: [id number] Date: 0:5100:36 05/28/2021 Site #1 removed upon discharge. Catheter intact. Manual pressure and bandaidapplied.(Electronically signed by Dionne Navarrete R.N. 05/28/2021 0:51) Name Value Range Interpretation Code Description Data Catherine rce(s) Supporting Document(s) ID Date Data Source [id number] 05/27/2021 11:50:00 PM EDT [facility] Name Value Range Interpretation Code Description Data Catherine rce(s) Supporting Document(s) [facility] SOURCE R [facility] COLOR Dk Yellow NORMAL: Yellow [facility] CLARITY turbid NORMAL: Clear [facility] Specific gravity of Urine by Test strip 1.020 1.001 - 1.030 [facility] pH 6 5 - 9 [facility] Glucose [Mass/volume] in Urine by Test strip NORM NORMAL: [facility] Bilirubin.total [Presence] in Urine by Test strip 1 NORMAL: Negative [facility] Ketones [Presence] in Urine by Test strip 15 NORMAL: Negative [facility] Protein [Mass/volume] in Urine by Test strip [facility] Nit[facility] [Presence] in Urine by Test strip NEG NORMAL: Negative [facility] BLOOD 250 NORMAL: Negative [facility] LEUK EST 25 NORMAL: Negative [facility] Urobilinogen [Mass/volume] in Urine by Test strip 1 less bryanna n 1.0 mg/dL [facility] MICROSCOPIC See Below [facility] ital WBC 10 - 15 NORMAL: NONE SEEN A [facility] Erythrocytes [#/volume] in Urine by Test strip TNTC NORMAL: NON E SEEN A [facility] EPITHELIAL MODERATE NORMAL: NONE SEEN A [facility] Bacteria [Presence] in Urine sediment by Light microscopy 1+ SMALL NORMAL: NONE SEEN [facility] Mucus [Presence] in Urine sediment by Light microscopy 1+ NOR MAL: NONE SEEN [facility] ID Date Data Source [id number] 05/27/2021 11:50:00 PM EDT [facility] Name Value Range Interpretation Code Description Data Catherine rce(s) Supporting Document(s) HCG URINE QUAL NEGATIVE NORMAL: NEGATIVE [facility] HCG URINE QL REENTER NEGATIVE NORMAL: NEGATIVE [facility] { KIT LOT # [id number] ){ KIT EXP DATE 08.27.22 ){ PROCEDURAL CONTROL VALID ) ID Date Data Source [id number] 05/27/2021 08:30:00 PM EDT [facility] Name Value Range Interpretation Code Description Data Catherine rce(s) Supporting Document(s) COMPREHENSIVE METABOLIC PANEL [facility] COMPREHENSIVE METABOLIC PANEL Sodium [Moles/volume] in Serum or Plasma 137 mEq/L 134 - 153 [facility] Potassium [Moles/volume] in Serum or Plasma 3.3 mEq/L 3.6 - 5.0 L [facility] Chloride [Moles/volume] in Serum or Plasma 99 mEq/L 98 - 107 [facility] Carbon dioxide, total [Moles/volume] in Serum or Plasma 20 MEQ/L 22 - 30 L [facility] Glucose [Mass/volume] in Serum or Plasma 111 MG/DL 70 - 99 H [facility] BUN 23 MG/DL 7 - 21 H [facility] Creatinine [Mass/volume] in Serum or Plasma 1.9 MG/DL 0.7 - 1.5 H [facility] BUN/CREAT 12 8 - [address] [facility] Protein [Mass/volume] in Serum or Plasma 8.1 G/DL 6.3 - 8.2 [facility] Albumin [Mass/volume] in Serum or Plasma 4.8 G/DL 3.9 - 5.0 [facility] Globulin [Mass/volume] in Serum by calculation 3.3 GM/DL 2.4 - 3.2 H [facility] A/G RATIO 1.5 0.8 - 2.0 [facility] Calcium [Mass/volume] in Serum or Plasma 9.9 MG/DL 8.4 - 10.2 [facility] Bilirubin.total [Mass/volume] in Serum or Plasma <0.7 MG/DL 0.2 - 1.3 [facility] Alkaline phosphatase [Enzymatic activity/volume] in Serum or Plasma 75 U/L 38 - 126 [facility] Aspartate aminotransferase [Enzymatic activity/volume] in Serum or Plasma 18 U/L 5 - 40 [facility] Alanine aminotransferase [Enzymatic activity/volume] in Seru m or Plasma 24 U/L 7 - 56 [facility] Anion gap 3 in Serum or Plasma 18.0 mmol/L 8.0 - 16.0 H [facility] AGE 41 yrs [facility] NON-AA GFR 31 mL/min [facility] constantin AFR AMER GFR 37 mL/min [facility] Male GFR In terprentation 20-49 yrs >60 mL/min Normal 50-59 yrs >56 mL/min Normal 60-69 yrs >49 mL/min Normal 70-79yrs >42 mL/min Normal 80 and above >35 mL/min Normal Female GFR Interpretation 20-39 yrs >60 mL/min Normal 40-49 yrs >58 mL/min Normal 50-59 yrs >51 mL/min Normal 60-69 yrs >45 mL/min Normal 70-79 yrs >39 mL/min Normal 80 and above >32 mL/min Normal ID Date Data Source [id number] 05/27/2021 08:29:00 PM EDT [facility] Name Value Range Interpretation Code Description Data Catherine rce(s) Supporting Document(s) Lipase [Enzymatic activity/volume] in Serum or Plasma 37 U/L 13 - 60 [facility] ID Date Data Source [id number] 05/27/2021 08:26:00 PM EDT [facility] Name Value Range Interpretation Code Description Data Catherine rce(s) Supporting Document(s) CBC W/AUTOMATED DIFF [facility] COMPLETE BLOOD COUNT Leukocytes [#/volume] in Blood by Automated count 14.3 10^3/uL 4.2 - 11.0 H [facility] Erythrocytes [#/volume] in Blood by Automated count 4.60 10^6/uL 4. 20 - 5.40 [facility] Hemoglobin [Mass/volume] in Blood 13.4 g/dL 12.0 - 16.0 [facility] Hematocrit [Volume Fraction] of Blood by Automated count 38.5 % 3 7.0 - 47.0 [facility] Erythrocyte mean corpuscular volume [Entitic volume] by Auto mated count 83.7 fL 81.0 - 101 [facility] Erythrocyte mean corpuscular hemoglobin [Entitic mass] by Automated count 29.1 pg 27.0 - 34.0 [facility] Erythrocyte mean corpuscular hemoglobin concentration [Mass/volume] by Automated count 34.8 g/dL 31.0 - 36.0 [facility] Erythrocyte distribution width [Ratio] by Automated count 11.8 % 11.5 - 14.5 [facility] Platelets [#/volume] in Blood by Automated count 391 10^3/uL 150 - 45 0 [facility] Platelet mean volume [Entitic volume] in Blood by Automated count 9.0 fL 7.4 - 10.4 [facility] Neutrophils/100 leukocytes in Blood by Automated count 81.3 % 37. 0 - 80.0 H [facility] Lymphocytes/100 leukocytes in Blood by Manual count 10.7 % 25.0 - 40.0 L [facility] Monocytes/100 leukocytes in Blood by Automated count 7.4 % 3.0 - 8.0 [facility] Eosinophils/100 leukocytes in Blood by Automated count 0.1 % 0.0 - 7.0 [facility] Basophils/100 leukocytes in Blood by Automated count 0.2 % 0.0 - 2.5 [facility] %IG 0.3 % 0.0 - 0.0 H [facility] %NRBC 0.0 % 0.0 - 0.0 [facility] al Neutrophils [#/volume] in Blood by Automated count 11.60 10^3/uL 2. 00 - 6.90 H [facility] Lymphocytes [#/volume] in Blood by Automated count 1.53 10^3/uL 0.60 - 3.40 [facility] Monocytes [#/volume] in Blood by Automated count 1.06 10^3/uL 0.00 - 0.90 H [facility] Eosinophils [#/volume] in Blood by Automated count 0.02 10^3/uL 0.00 - 0.70 [facility] Basophils [#/volume] in Blood by Automated count 0.03 10^3/uL 0.00 - 0.20 [facility] #IG 0.04 10^3/uL 0.00 - 0.10 [facility] #NRBC 0.00 10^3/uL 0.00 - 0.00 [facility] ospital MANUAL DIFF SEE BELOW [facility] ital Segmented neutrophils/100 leukocytes in Blood by Manual count 81 % 37 - 80 H [facility] %LYMPH 13 % 25 - 40 L [facility] %MONO 6 % 3 - 8 [facility]PH NOT INDICATED [facility] spital ID Date Data Source [id number] 05/26/2021 12:01:00 AM EDT [facility] 1 OrderSheet [facility] Emergency Department [address] [place] [address] Phone #: [phone]- [phone] 05/26/2021 00:00 Patient: MILAN AZEVEDO Sex: F : 1980 Age: 41yWEIGHT:79.3 kg (S) HEIGHT:63 inches (S) BMI:31.0ALLERGIES: No Known Drug AllergyCHIEF COMPLAINT: diarrhea, vomitingDIAGNOSIS: Vomiting, Urinary tract infectious diseaseLAB ORDERSOrder Description Priority Entered Acknowledged InitialedCMP STAT 01:05/26/2021 01:45 Meaghan Navarrete Jack ; Dionne AlvarezCBC w Diff STAT 01:05/26/2021 01:45 Meaghan Navarrete Jack ; Dionne AlvarezUrinalysis (Clean STAT 01:05/26/2021 01:59 Rosalba,Tequila) Kahlil Mcelroy ; Dionne AlvarezUrine Drug Screen STAT 01:35 05/26/2021 01:59 Meaghan Navarrete Jack ; Dionne AlvarezDIAGNOSTIC STUDY ORDERSOrder Description Priority Entered Acknowledged InitialedMEDICATION/IV/DRIP/FLUID ORDERSOrder Description Priority Entered Acknowledged InitialedZofran 4 mg IVP X 1 01:35 05/26/2021 01:59 Rosalba,dose: 4 mg (NOW Kahlil Mcelroy ; Dionne Alvarezx1)NS IV 1000 mL 01:35 05/26/2021 01:52 Rosalba,Bolus: : Bolus 1000 Kahlil Mcelroy ; Dionne AlvarezmL (X1)GENERAL ORDERSOrder Description Priority Entered Acknowledged Initialed[Electronically signed by Dionne Navarrete R.N. (04:05 05/26/2021)][Electronically signed by Kahlil Mcelroy (07:42 05/27/2021)][Electronically locked by Dionne Navarrete R.N. (04:05 05/26/2021)] Name Value Range Interpretation Code Description Data Catherine rce(s) Supporting Document(s) ID Date Data Source [id number] 05/26/2021 12:01:00 AM EDT [facility] 1 Medication Reconciliation Report [facility] Emergency Department [address] [place] [address] Phone #: [phone]- [phone] 05/26/2021 00:00 Patient: MILAN AZEVEDO Sex: F : 1980 Age: 41yWeight: 79.3 kgHeight/Length: 63 in.BMI: 31.0ALLERGIES: No Known Drug AllergyThe patient's Home Medications are listed below:CONTINUE TAKING THE FOLLOWING MEDICATIONS: Cymbalta Oral Lisinopril- hydroCHLOROthiazide Oral (20-12.5 mg) 1 tablet, daily tiZANidine HCl OralThe source(s) of the original Home Medication information:patientThe following Medications were given to the patient in the Emergency Department:NS [IV] IV Fluids bolus 0, then 1000 mL/hr, administered: 01:52 05/26/2021Zofran [IVP] IVP 4 mg, administered: 01:59 05/26/2021The following Medications were prescribed to the patient:Zofran 4 mg tablet Take 1 tablet three times a day for 5 days -- Dispense 15 tablet. Refills: 0.Substitution permitted.[employer] [address] [phone]. .Bactrim DS 800 mg-160 mg tablet Take 1 tablet twice a day -- Dispense 14 tablet. Refills: 0.Substitution permitted.[facility] [address] [place] [phone]. . -- Kahlil Mcelroy Name Value Range Interpretation Code Description Data Catherine rce(s) Supporting Document(s) ID Date Data Source [id number] 05/26/2021 12:01:00 AM EDT [facility] 1 Medication Administration Record [facility] Emergency Department [address] [place] [address] Phone #: ext- [phone] 05/26/2021 00:00 Patient: MILAN AZEVEDO Sex: F : 1980 Age: 41yWeight: 79.3 kgHeight/Length: 63 inBMI: 31ALLERGIES: No Known Drug Allergy Date/Time Medication Administered Medication OrderedGiven ZOFRAN [IVP] (ONDANSETRON HCL) Zofran 4 mg IVP X 1 dose: 4 mg01:59 05/26/2021 Dose: 4 mg IVP (NOW x1)Dionne Navarrete R.N. Site: #1 right ACStart NS [IV] NS IV 1000 mL Bolus: : Bolus [id number] 05/26/2021 Dose: IV Fluids mL (X1)Dionne Navarrete R.N. Rate: 1000 mL/hr over 1 hour(s)---- Dispensed: 1000 mL bagStop Site: #1 right AC03:46 1LDionne parnell R.N. Name Value Range Interpretation Code Description Data Catherine rce(s) Supporting Document(s) ID Date Data Source [id number] 05/26/2021 12:01:00 AM EDT [facility] 1 General Instructions [facility] Emergency Department [address] [place] [address] Phone #: ext- [phone] 05/26/2021 00:00 Patient: MILAN AZEVEDO Sex: F : 1980 Age: 41yVomiting with nausea. Not intractable.Acute urinary tract infection with cystitis. No hematuria.INSTRUCTIONSWarnings: Further evaluation is necessary.GENERAL WARNINGS: Return or contact your physician immediately if your condition worsens orchanges unexpectedly, if not improving as expected, or if other problems arise.Your Current Medications: Your current home medications have been reviewed.CONTINUE TAKING THE FOLLOWING MEDICATIONS:Cymbalta Oral.Lisinopril-hydroCHLOROthiazide Oral : Tablet 20-12.5 mg, 1 tablet daily.tiZANidine HCl Oral.Prescription Medications:Zofran 4 mg tablet Take 1 tablet three times a day for 5 days -- Dispense 15 tablet. Refills: 0.Substitution permitted.Pharmacy - [facility] - [address] [place], [place] [phone]. .Bactrim DS 800 mg-160 mg tablet Take 1 tablet twice a day -- Dispense 14 tablet. Refills: 0.Substitution permitted.Pharmacy - [facility] #[facility] - [address] [facility] ; [place], [place] [phone]. FaxNumber: .Understanding of the discharge instructions verbalized by patient.Follow-up with: [facility] [place], , , [address], , [place], [address] Follow up in three days if not better. Call for an appointment. Reason for referral: evaluation. ADDITIONAL INFORMATIONVomiting (Adult)Vomiting is a common symptom that may be due to different causes. These include gastroenteritis 2 General Instructions [facility] Emergency Department [address] [place] [address] Phone #: ext- [phone] 05/26/2021 00:00 Patient: MILAN AZEVEDO Sex: F : 1980 Age: 41y("stomach flu"), food poisoning and gastritis. There are other more serious causes of vomiting whichmay be hard to diagnose early in the illness. Therefore, it is important to watch for the warning signslisted below.The main danger from repeated vomiting is dehydration. This is due to excess loss of water andminerals from the body. When this occurs, your body fluids must be replaced.Home care If symptoms are severe, rest at home for the next 24 hours. Because your symptoms may be from an infection, wash your hands often and well. If soap and water are not available, use alcohol-based warehouse order selector to keep from spreading the infection to others. Wash your hands for at least 20 seconds. Humming the happy birthday song twice while you wash is an easy way to make sure you've washed for 20 seconds. Wash your hands after using the toilet, before and after preparing food, before eating food, after changing a diaper, cleaning a wound, caring for a sick person, and blowing your nose, coughing, or sneezing. You should also wash your hands after caring for someone who is sick, touching pet food, or treats, and touching an animal, or animal waste. You may use acetaminophen or NSAID medicines like ibuprofen or naproxen to control fever, unless another medicine was prescribed. If you have chronic liver or kidney disease or ever had a stomach ulcer or gastrointestinal bleeding, talk with your doctor before using these medicines. Aspirin should never be used in anyone under 18 years of age who is ill with a fever. It may cause severe liver damage. Don't use NSAID medicines if you are already taking one for another condition (like arthritis) or are on aspirin (such as for heart disease, or after a stroke) Don't use tobacco and or drink alcohol, which may worsen your symptoms. If medicines for vomiting were prescribed, take as directed. Once vomiting stops, then follow these guidelines:During the first 12 to 24 hours follow the diet below: Fruit juices. Apple, grape juice, clear fruit drinks, and electrolyte replacement drinks. Beverages. Soft drinks without caffeine; mineral water (plain or flavored), decaffeinated tea and coffee. Soups. Clear broth and bouillon Desserts. Plain gelatin, ice pops, and fruit juice bars. As you feel better, you may add 6 to 8 3 General Instructions [facility] Emergency Department [address] [place] [address] Phone #: ext- [phone] 05/26/2021 00:00 Patient: MILAN AZEVEDO Sex: F : 1980 Age: 41y ounces of yogurt per day.During the next 24 hours you may add the following to the above: Hot cereal, plain toast, bread, rolls, crackers Plain noodles, rice, mashed potatoes, chicken noodle or rice soup Unsweetened canned fruit such as applesauce, bananas (avoid pineapple and citrus) Limit caffeine and chocolate. No spices or seasonings except salt.During the next 24 hours:Gradually resume a normal diet, as you feel better and your symptoms lessen.Follow-up careFollow up with your healthcare provider, or as advised.When to seek medical adviceCall your healthcare provider right away if any of these occur: Constant right-sided lower belly pain or increasing general belly pain Continued vomiting (unable to keep liquids down) for 24 hours Vomiting blood or coffee grounds Swollen belly Frequent diarrhea (more than 5 times a day); blood (red or black color) or mucus in diarrhea Reduced urine output or extreme thirst Weakness, dizziness or fainting Unusually drowsy or confused Fever of 100.4F (38C) oral or higher, or as directed Yellow color of the eyes or skin [employer]. [address] [place] [address]. All rights reserved. This information is not intended as asubstitute for professional medical care. Always follow your healthcare professional's instructions.Bladder Infection, Female (Adult) 4 General Instructions [facility] Emergency Department [address] [place] [address] Phone #: ext- [phone] 05/26/2021 00:00 Patient: MILAN AZEVEDO Sex: F : 1980 Age: 41yUrine normally doesn't have any germs (bacteria) in it. But bacteria can get into the urinary tract fromthe skin around the rectum. Or they can travel in the blood from other parts of the body. Once theyare in your urinary tract, they can cause infection in these areas: The urethra (urethritis) The bladder (cystitis) The kidneys (pyelonephritis)The most common place for an infection is in the bladder. This is called a bladder infection. This isone of the most common infections in women. Most bladder infections are easily treated. They arenot serious unless the infection spreads to the kidney.The terms bladder infection, UTI, and cystitis are often used to describe the same thing. But they arenot always the same. Cystitis is an inflammation of the bladder. The most common cause of cystitis isan infection.SymptomsThe infection causes inflammation in the urethra and bladder. This causes many of the symptoms.The most common symptoms of a bladder infection are: Pain or burning when urinating Having to urinate more often than normal Urgent need to urinate 5 General Instructions [facility] Emergency Department [address] [place] [address] Phone #: [phone] 05/26/2021 00:00 Patient: MILAN AZEVEDO Sex: F : 1980 Age: 41y Only a small amount of urine comes out Blood in urine Belly (abdominal) discomfort. This is often in the lower belly above the pubic bone. Cloudy urine Strong- or bad-smelling urine Unable to urinate (urinary retention) Unable to hold urine in (urinary incontinence) Fever Loss of appetite Confusion (in older adults)CausesBladder infections are not contagious. You can't get one from someone else, from a toilet seat, orfrom sharing a bath.The most common cause of bladder infections is bacteria from the bowels. The bacteria get onto theskin around the opening of the urethra. From there, they can get into the urine. Then they travel up tothe bladder, causing inflammation and infection. This often happens because of: Wiping incorrectly after urinating. Always wipe from front to back. Bowel incontinence Procedures such as having a catheter put in Older age Not emptying your bladder. This can give bacteria a chance to grow in your urine. Fluid loss (dehydration) Constipation Having sex Using a diaphragm for controlTreatment 6 General Instructions [facility] Emergency Department [address] [place] [address] Phone #: ext- [phone] 00:00 Patient: MILAN AZEVEDO Sex: F : 1980 Age: 41yBladder infections are diagnosed by a urine test and urine culture. They are treated with antibiotics.They often clear up quickly without problems. Treatment helps prevent a more serious kidneyinfection.MedicinesMedicines can help in the treatment of a bladder infection: Take antibiotics until they are used up, even if you feel better. It's important to finish them to make sure the infection has cleared. You can use acetaminophen or ibuprofen for pain, fever, or discomfort, unless another medicine was prescribed. If you have long-term (chronic) liver or kidney disease, talk with your healthcare provider before using these medicines. Also talk with your provider if you've ever had a stomach ulcer or GI (gastrointestinal) bleeding, or are taking blood-thinner medicines. If you are given phenazopydridine to reduce burning with urination, it will make your urine a bright orange color. This can stain clothing.Care and preventionThese self-care steps can help prevent future infections: Drink plenty of fluids. This helps to prevent dehydration and flush out your bladder. Do this unless you must restrict fluids for other health reasons, or your healthcare provider told you not to. Clean yourself correctly after going to the bathroom. Wipe from front to back after using the toilet. This helps prevent the spread of bacteria. Urinate more often. Don't try to hold urine in for a long time. Wear loose-fitting clothes and cotton underwear. Don't wear tight-fitting pants. Improve your diet and prevent constipation. Eat more fresh fruits and vegetables, and fiber. Eat less junk foods and fatty foods. Don't have sex until your symptoms are gone. Don't have caffeine, alcohol, and spicy foods. These can irritate your bladder. Urinate right after you have sex to flush out your bladder. If you use control pills and have frequent bladder infections, discuss it with your healthcare provider.Follow-up care 7 General Instructions [facility] Emergency Department [address] [place] [address] Phone #: ext- [phone] 05/26/2021 00:00 Patient: MILAN AZEVEDO Sex: Vito : 1980 Age: 41yCall your healthcare provider if all symptoms are not gone after 3 days of treatment. This is especiallyimportant if you have repeat infections.If a culture was done, you will be told if your treatment needs to be changed. If directed, you cancall to find out the results.If X-rays were done, you will be told if the results will affect your treatment.Call [phone] [phone] if any of the following occur: Trouble breathing Hard to wake up or confusion Fainting (loss of consciousness) Fast heart r ateWhen to get medical adviceCall your healthcare provider right away if any of these occur: Fever of 100.4F (38.0C) or higher, or as directed by your healthcare provider Symptoms are not better after 3 days of treatment Back or belly pain that gets worse Repeated vomiting, or unable to keep medicine down Weakness or dizziness Vaginal discharge Pain, redness, or swelling in the outer vaginal area (labia) [id number] [employer]. [address] [place] [address]. All rights reserved. This information is not intended as asubstitute for professional medical care. Always follow your healthcare professional's instructions. You have been given the following additional information: Vomiting (Adult) Bladder Infection, Female (Adult) 8 General Instructions [facility] Emergency Department [address] [place] [address] Phone #: ext- [phone] 05/26/2021 00:00 Patient: MILAN AZEVEDO Sex: F : 1980 Age: 41y(Electronically signed by Kahlil Mcelroy 05/27/2021 07:42) Name Value Range Interpretation Code Description Data Catherine rce(s) Supporting Document(s) ID Date Data Source [id number] 05/26/2021 12:01:00 AM EDT [facility] 1 Clinical Report - Nurses [facility] Emergency Department [address] [place] [address] Phone #: ext- [phone] 05/26/2021 00:00 Patient: MILAN AZEVEDO Sex: F : 1980 Age: 41yTRIAGEArrived by private vehicle. Historian: patient.Triage time: 00:39 05/26/2021. Acuity: LEVEL 3.Chief Complaint: VOMITING and DIARRHEA.This started yesterday. ( was discharged early today from this ER and went home ate supper and startedto throw up several times with 1 diarrhea stool). She has had moderate nausea and vomiting. Thevomiting has occurred several times. She has had diarrhea. This has occurred only once.Treatment HAND II CUTTER:(immodium).SEPSIS SCREEN: SIRS SCREEN NEGATIVE. SEPSIS SCREEN NEGATIVE. No suspected or confirmedsigns of infection present. --00:45 05/26/21 Mikhail Bermudez RN00:39 05/26/21. BP: 163/101 (regular adult cuff) taken on the right arm, via an automated monitor, whilelying. MAP: 121. HR: 81 (regular, normal rate and strong). RR: 18 (regular, unlabored and normal). Y2lgigsxhryb: 100% on room air. Temp: 97.1 F (oral). --00:45 05/26/21 Mikhail Bermudez RN00:47 05/26/21. Pain level now: 8/10. --00:47 05/26/21 Mikhail Bermudez RN.Weight: 79.3 kg stated. Height/Length: 63 inches Per Patient. BMI: 31. --00:38 05/26/21 Mikhail Bermudez RN.MedicationsCymbalta Oral. tiZANidine HCl Oral. --00:41 05/26/21 Mikhail Bermudez RN Lisinopril-hydroCHLOROthiazide Oral (Tablet 20-12.5 mg) 1 tablet, daily. --00:51 05/26/21 WAYLON Macias.AllergiesNo Known Drug Allergy. --00:41 05/26/21 Mikhail Bermudez RN.PROBLEMS:Ovarian Cyst.Arthritis: (Left hip).Hypertension.Sciatica.S[employer] Femoral Epiphysis. 2 Clinical Report - Nurses [facility] Emergency Department [address] [place] [address] Phone #: [phone] 05/26/2021 00:00 Patient: MILAN AZEVEDO Sex: F : 1980 Age: 41y Pelvic Pain. --00:42 05/26/21 Mikhail Bermudez RN. Medication/allergy information source: the patient. --00:45 05/26/21 Mikhail Bermudez RN. History SOCIAL HX: Never smoker. No alcohol use or drug use. No recent travel. No known contact with a sick individual. She was offered HIV testing but declined and hepatitis C testing but declined. She has not traveled outside the [place] Infectious disease exposure: No infectious disease exposure. SELF HARM ASSESSMENT: Self harm assessment was performed. The patient answered "no" to the question(s) "Have you recently felt down, depressed, or hopeless?", "Do you have thoughts of harming or killing yourself?", "Do you have a plan for harming or killing yourself?", "Have you recently had thoughts about harming or killing others?", "Do you have any dangerous items in your possession?", "Have you noticed less interest or pleasure in doing things?", "Are you here because you tried to hurt yourself?" and "Have you ever tried to hurt yourself before today?". ABUSE ASSESSMENT: No report of abuse. FALL RISK ASSESSMENT: Fall risk assessment completed. No risk factors identified. --00:45 05/26/21 Mikhail Bermudez RN. Assessment The patient states feels the same. --00:45 05/26/21 Mikhail Bermudez RN.PHYSICAL ASSESSMENTAmbulatory to room.GENERAL / NEURO / PSYCH: Alert. Oriented X 4. Appears in distress.HEENT: Mucous membranes are pink.RESPIRATORY: Respirations not labored. Breath sounds within normal l imits.CVS: Capillary refill less than 2 seconds.GI / : The patient has had intermittent episodes of nausea. Emesis noted. Has vomited several times.She has diarrhea. This has occurred only once. Abdomen soft and nontender. Bowel sounds withinnormal limits.SKIN: Skin is warm and dry. --00:46 05/26/21 Mikhail Bermudez RN.NURSING PROGRESS NOTESPatient gowned. Reassurance given. Call light placed in reach of patient. Bed placed in lowest position.Brakes of bed on. Patient ready for evaluation- ED physician notified. --00:46 05/26/21 Mikhail Bermudez RN Patient ID band checked for patient name and birthdate. Blood samples drawn from the peripheral IV site (prior to IV fluid start) by nurse per protocol ; labeled in presence of the patient and sent to lab. --01:46 05/26/21 Dionne Navarrete R.N. 3 Clinical Report - Nurses [facility] Emergency Department [address] [place] [address] Phone #: ext- [phone] 05/26/2021 00:00 Patient: MILAN AZEVEDO Sex: F : 1980 Age: 41y 01:46 05/26/2021 Site #1 started via IV in the right antecubital space with an 20g angiocath, with aseptic technique and good blood return; one attempt. Saline lock flushed with 10 mL saline. --01:46 05/26/21 Dionne Navarrete R.N. GI / : The patient reports vomiting. --01:46 05/26/21 Dionne Navarrete R.N. 01:52 05/26/2021 Started bag #1 1000 mL IV Fluids NS; at 1000 mL/hr over 1 hour(s) via site #1 via IV pump. Allergies verified and confirmed 5 rights. IV patency e stablished. IV site checked: no pain, redness, or swelling. IV flushed thoroughly pre- and post-medication administration. Information reviewed with patient including reason for taking this medication and precautions. Verbalizes understanding. --01:52 05/26/21 Dionne Navarrete R.N. 01:59 05/26/2021 Zofran (Ondansetron HCl) IVP 4 mg given over 2 minute(s) via site #1. Allergies verified and confirmed 5 rights. IV patency established. IV site checked: no pain, redness, or swelling. IV flushed thoroughly pre- and post-medication administration. IVP given by RN. Information reviewed with patient including reason for taking this medication, signs of allergic reaction and precautions. Verbalizes understanding. --01:59 05/26/21 Dionne Navarrete R.N. Reassessment after medication administered. Nausea still present but improving. Vomiting gone now. Reassessment after fluids administered. She reports no complaints, she is resting quietly and she has had no adverse reaction. --03:30 05/26/21 Sukhjinder Navarrete R.N.DISPOSITION / DISCHARGE 04:05/26/21. BP: 134/87. MAP: 102. HR: 76. RR: 16. O2 saturation: 100% on room air. Temp: 98.3 F. Pain level now: 0/10. --04:01 05/26/21 Dionne Navarrete R.N. 03:46 05/26/2021 IV Fluids NS via IV site #1 Discontinued: bag #1 infused upon discharge. Total amount infused: 1000 mL. IV patency established. IV site checked: no pain, redness, or swelling. IV flushed thoroughly. --04:01 05/26/21 Dionne Navarrete R.N. 04:02 05/26/2021 Site #1 removed upon discharge. Catheter intact. Pressure dressing and bandaid applied. --04:02 05/26/21 Dionne Navarrete R.N. Condition at departure: improved. The goals identified in the patient's plan of care were met. No learning barriers present. Discharge instructions provided and reviewed with the patient. Reviewed warnings. Patient verbalized understanding. Written instructions provided in Swazi. The patient was discharged by the physician. She was discharged home. She left ambulatory and via private vehicle. Patient driving. --04:02 05/26/21 Dionne Navarrete R.N.Locked/Released at 05/26/2021 04:05 by Dionne Navarrete R.N. 4 Clinical Report - Nurses [facility] Emergency Department [address] [place] [address] Phone #: ext- [phone] 05/26/2021 00:00 Patient: MILAN AZEVEDO [facility]#: [id number] Sex: F : 1980 Age: 41y Name Value Range Interpretation Code Description Data Catherine rce(s) Supporting Document(s) ID Date Data Source [id number] 05/26/2021 12:01:00 AM EDT [facility] 1 Clinical Report - Physicians/Mid Levels [facility] Emergency Department [address] [place] [address] Phone #: ext- [phone] 05/26/2021 00:00 Patient: MILAN AZEVEDO Sex: F : 1980 Age: 41y Time Seen: 01:38 05/26/2021. Arrived- By private vehicle. Historian- patient.HISTORY OF PRESENT ILLNESS Chief Complaint: VOMITING and DIARRHEA. The patient has had nausea, vomiting and diarrhea. No black stools, bloody stools, abdominal pain, constipation or known contact with a sick individual. Has not recently been on antibiotics. This started just prior to arrival and is still present. It was abrupt in onset. The illness is described as moderate. (Chronic left hip pain for 5 months and was seen in ED less than 3 hours ago for elevated blood pressure. Just started on cymbalta and lisinopril for HTN. Just moved back from [place] in February. History of ovarian cyst on the right.). Similar symptoms previously. None. Recent medical care: The patient was seen recently in the emergency department and office.REVIEW OF SYSTEMSNo fever, difficulty with urination, dark urine, headache or cough. No difficulty breathing, excessiveurination or back pain. All other systems reviewed and are negative.PAST HISTORYSee nurses notes. Hypertension. Problems: Ovarian Cyst. Arthritis. (Left hip) Hypertension. Sciatica. Slipped [employer] Femoral Epiphysis. Pelvic Pain. Additional Surgeries: Appendectomy. . Hip Surgery. Shoulder Surgery. Medications: Lisinopril-hydroCHLOROthiazide Oral (Tablet 20- 12.5 mg) 1 tablet, daily. 2 Clinical Report - Physicians/Mid Levels [facility] Emergency Department [address] [place] [address] Phone #: ext- [phone] 05/26/2021 00:00 Patient: MILAN AZEVEDO Sex: F : 1980 Age: 41y Cymbalta Oral. tiZANidine HCl Oral. Allergies: No Known Drug Allergy.SOCIAL HISTORYNo alcohol use.ADDITIONAL NOTESThe nursing notes have been reviewed.PHYSICAL EXAMVital Signs: 05/26/2021 00:39 BP: lying 163/101. MAP: 121. HR: 81. RR: 18. O2 saturation: 100% onroom air. Temp: 97.1 F.Appearance: Alert. No acute distress.Eyes: Pupils equal, round and reactive to light. Eyes normal inspection .ENT: Nose normal. Pharynx normal.Neck: Normal inspection. Neck supple.CVS: Normal heart rhythm and rate. Heart sounds normal. Pulses normal.Respiratory: No respiratory distress. Painless inspiration. Breath sounds normal.Abdomen: Soft and nontender. Tenderness in the left lower quadrant. No organomegaly. No mass.Obese. (tenderness in left groin).Back: Normal inspection. No CVA tenderness.Skin: Skin warm. Normal skin color. No rash. Normal skin turgor.Extremities: Extremities exhibit normal ROM.Neuro: Oriented X 3. No motor deficit. No sensory deficit.LABS, X-RAYS, AND EKGLaboratory Tests: CMP: (C OLL: 05/26/2021 01:39) ( MsgRcvd 05/26/2021 02:29) Final results Test Result Flag Units (Reference) COMPREHENSIVE METABOLIC PANEL COMPREHENSIVE METABOLIC PANEL SODIUM 138 mEq/L (134 - 153) POTASSIUM 4.9 mEq/L (3.6 - 5.0) SLIGHTLY HEMOLYZED SAMPLE CHLORIDE 103 mEq/L (98 - 107) CO2 22 MEQ/L (22 - 30) GLUCOSE 118 H MG/DL (70 - 99) BUN 14 MG/DL (7 - 21) CREATININE 0.7 MG/DL (0.7 - 1.5) BUN/CREAT 20 (8 - 27) TOTAL PROTEIN 8.7 H G/DL (6.3 - 8.2) ALBUMIN 4.9 G/DL (3.9 - 5.0) GLOBULIN 3.8 H GM/DL (2.4 - 3.2) A/G RATIO 1.3 (0.8 - 2.0) CALCIUM 10.5 H MG/DL (8.4 - 10.2) 3 Clinical Report - Physicians/Mid Levels [facility] Emergency Department [address] [place] [address] Phone #: ext- [phone] 05/26/2021 00:00 Patient: MILAN AZEVEDO Sex: F : [birth year] Age: 41y TOTAL BILI 0.7 MG/DL (0.2 - 1.3) ALKALINE PHOS 77 U/L (38 - 126) SGOT/AST 36 U/L (5 - 40) SGPT/ALT 28 U/L (7 - 56) ANION GAP 13.0 mmol/L (8.0 - 16.0) AGE 41 yrs NON-AA GFR >60 mL/min AFR AMER GFR >60 mL/min Male GFR Interprentation 20-49 yrs >60 mL/min Blaeao15-99 yrs >56 mL/min Normal 60-69 yrs >49 mL/min Normal 70-79yrs>42 mL/min Normal 80 and above >35 mL/min Normal Female GFRInterpretation 20-39 yrs >60 mL/min Normal 40-49 yrs >58 mL/minNormal 50-59 yrs >51 mL/min Normal 60-69 yrs >45 mL/min Mdnzjl01-51 yrs >39 mL/min Normal 80 and above >32 mL/min NormalCBC w Diff: (KELLIE: 05/26/2021 01:39) ( MsgRcvd 05/26/2021 01:56) Final results Test Result Flag Units (Reference) CBC W/AUTOMATED DIFF COMPLETE BLOOD COUNT WBC 14.0 H 10/uL (4.2 - 11.0) RBC 4.56 10/uL (4.20 - 5.40) HEMOGLOBIN 13.2 g/dL (12.0 - 16.0) HEMATOCRIT 38.2 % (37.0 - 47.0) MCV 83.8 fL (81.0 - 101) MCH 28.9 pg (27.0 - 34.0) MCHC 34.6 g/dL (31.0 - 36.0) RDW 11.6 % (11.5 - 14.5) PLATELETS 368 10/uL (150 - 450) MPV 9.2 fL (7.4 - 10.4) NEUT 87.8 H % (37.0 - 80.0) LYMPH 6.6 L % (25.0 - 40.0) MONO 4.9 % (3.0 - 8.0) EOS 0.1 % (0.0 - 7.0) BASO 0.2 % (0.0 - 2.5) %IG 0.4 H % (0.0 - 0.0) %NRBC 0.0 % (0.0 - 0.0) #NEUT 12.29 H 10/uL (2.00 - 6.90) #LYMPH 0.93 10/uL (0.60 - 3.40) #MONO 0.68 10/uL (0.00 - 0.90) #EOS 0.01 10/uL (0.00 - 0.70) #BASO 0.03 10/uL (0.00 - 0.20) #IG 0.05 10/uL (0.00 - 0.10) #NRBC 0.00 10/uL (0.00 - 0.00) MANUAL DIFF NOT INDICATED RBC MORPH NOT INDICATEDUrinalysis: (KELLEI: 05/26/2021 01:55) ( MsgRcvd 05/26/2021 02:42) Final results Test Result Flag Units (Reference) URINALYSIS URINALYSIS SOURCE R COLOR yellow (NORMAL: Yello CLARITY cloudy (NORMAL: Clear SPEC GRAVITY 1.010 (1.001 - 1.030 pH 6 (5 - 9) GLUCOSE NORM (NORMAL: Negat BILIRUBIN NEG (NORMAL: Negat 4 Clinical Report - Physicians/Mid Levels [facility] Emergency Department [address] [place] [address] Phone #: ext- [phone] 05/26/2021 00:00 Patient: MILAN AZEVEDO Sex: F : 1980 Age: 41y KETONE 5 A (NORMAL: Negat PROTEIN 30 (NORMAL: Negat NITRITE NEG (NORMAL: Negat BLOOD 250 A (NORMAL: Negat LEUK EST 100 A (NORMAL: Negat UROBILINOGEN NOR (less than 1.0 MICROSCOPIC See Below WBC 30 - 40 A (NORMAL: NONE RBC 5 - 7 A (NORMAL: NONE EPITHELIAL MANY A (NORMAL: NONE BACTERIA 3+ LARGE A (NORMAL: NONE MUCOUS 2+ A (NORMAL: NONE Drug Screen-Urine: (KELLIE: 05/26/2021 01:55) ( MsgRcvd 05/26/2021 03:03) Final results Test Result Flag Units (Reference) DRUG SCREEN URINE URINE DRUG SCREEN AMPHETAMINES NEGATIVE (NORMAL: NEGAT BARBITURATES NEGATIVE (NORMAL: NEGAT BENZO NEGATIVE (NORMAL: NEGAT COCAINE NEGATIVE (NORMAL: NEGAT THC NEGATIVE (NORMAL: NEGAT OPIATES NEGATIVE (NORMAL: NEGAT PCP NEGATIVE (NORMAL: NEGAT \\BLDo\\URINE DRUG SCREEN INTERPRETATION\\BLDx\\ THE CUTOFFF LEVELS FOR DETECTION ARE FOLLOWS: AMPHETAMINES 1000 ng/ml BARBITUARATES 200 ng/ml BENZODIAZEPINES 100 ng/ml THC 50 ng/ml PHENCYCLIDINE 25 ng/ml OPIATES 300 ng/ml COCAINE 300 ng/ml ALL POSITIVES ARE CONSIDERED PRESUMPTIVE POSITIVE CONFIRMATION WILL BE PERFORMED AT PHYSICIAN REQUEST..PROGRESS AND PROCEDURESCourse of Care: 01:52 05/26/21. Seen for hip pain twice followed by ED visit 5 hours ago for elevatedblood pressure. 03:55 05/26/21. vomiting improved. possible UTI vs gastroenteritis. Old medical records ordered. Patient has had multiple ED visit s. Disposition: Discharged. Condition: stable.CLINICAL IMPRESSION Vomiting with nausea. Not intractable. Acute urinary tract infection with cystitis. No hematuria. 5 Clinical Report - Physicians/Mid Levels [facility] Emergency Department [address] [place] [address] Phone #: ext- [phone] 05/26/2021 00:00 Patient: MILAN AZEVEDO Sex: F : 1980 Age: 41yINSTRUCTIONS Warnings: Further evaluation is necessary. GENERAL WARNINGS: Return or contact your physician immediately if your condition worsens or changes unexpectedly, if not improving as expected, or if other problems arise. Your Current Medications: Your current home medications have been reviewed. CO NTINUE TAKING THE FOLLOWING MEDICATIONS: Cymbalta Oral. Lisinopril- hydroCHLOROthiazide Oral : Tablet 20-12.5 mg, 1 tablet daily. tiZANidine HCl Oral. Prescription Medications: Zofran 4 mg tablet Take 1 tablet three times a day for 5 days -- Dispense 15 tablet. Refills: 0. Substitution permitted. Strava [address] [phone]. . Bactrim DS 800 mg-160 mg tablet Take 1 tablet twice a day -- Dispense 14 tablet. Refills: 0. Substitution permitted. Strava [address] [place] [phone]. . Understanding of the discharge instructions verbalized by patient. Follow-up with: [facility] Respective Team Yaron Rea [place], , , [address] [facility] [address], , [place], [address] Follow up in three days if not better. Call for an appointment. Reason for referral: evaluation.(Electronically signed by Kahlil Mcelroy 05/27/2021 07:42) Name Value Range Interpretation Code Description Data Catherine rce(s) Supporting Document(s) ID Date Data Source [id number] 05/26/2021 03:03:00 AM EDT [facility] Name Value Range Interpretation Code Description Data Catherine rce(s) Supporting Document(s) DRUG SCREEN URINE [facility] URINE DRUG SCREEN Amphetamine [Presence] in Urine by Screen method NEGATIVE NORMAL: N EGATIVE [facility] BARBITURATES NEGATIVE NORMAL: NEGATIVE [facility] BENZO NEGATIVE NORMAL: NEGATIVE [facility] COCAINE NEGATIVE NORMAL: NEGATIVE [facility] Tetrahydrocannabinol [Presence] in Urine NEGATIVE NORMAL: NEGATIVE [facility] OPIATES NEGATIVE NORMAL: NEGATIVE [facility] Phencyclidine [Presence] in Urine by Screen method NEGATIVE NOR MAL: NEGATIVE [facility] \\BLDo\\URINE DRUG SCR EEN INTERPRETATION\\BLDx\\ THE CUTOFFF LEVELS FOR DETECTION ARE FOLLOWS: AMPHETAMINES 1000 ng/ml BARBITUARATES 200 ng/ml BENZODIAZEPINES 100 ng/ml THC 50 ng/ml PHENCYCLIDINE 25 ng/ml OPIATES 300 ng/ml COCAINE 300 ng/ml ALL POSITIVES ARE CONSIDERED PRESUMPTIVE POSITIVE CONFIRMATION WILL BE PERFORMED AT PHYSICIAN REQUEST. ID Date Data Source [id number] 05/26/2021 02:41:00 AM EDT [facility] Name Value Range Interpretation Code Description Data Catherine rce(s) Supporting Document(s) URINALYSIS [facility] constantin URINALYSIS SOURCE R [facility] al COLOR yellow NORMAL: Yellow [facility] CLARITY cloudy NORMAL: Clear [facility] Specific gravity of Urine by Test strip 1.010 1.001 - 1.030 [facility] pH 6 5 - 9 [facility] al Glucose [Mass/volume] in Urine by Test strip NORM [facility]: [facility] Bilirubin.total [Presence] in Urine by Test strip NEG NORMAL: Negative [facility] Ketones [Presence] in Urine by Test strip 5 NORMAL: Negative [facility] Protein [Mass/volume] in Urine by Test strip 30 [facility] Nitrite [Presence] in Urine by Test strip NEG NORMAL: Negative [facility] BLOOD 250 NORMAL: Negative [facility] LEUK EST 100 NORMAL: Negative [facility] Urobilinogen [Mass/volume] in Urine by Test strip NOR less bryanna n 1.0 mg/dL [facility] MICROSCOPIC See Below [facility] ital WBC 30 - 40 NORMAL: NONE SEEN [facility] Erythrocytes [#/volume] in Urine by Test strip 5 - 7 NORMAL: NON E SEEN A [facility] EPITHELIAL MANY NORMAL: NONE SEEN A [facility] Bacteria [Presence] in Urine sediment by Light microscopy 3+ LARGE NORMAL: NONE SEEN A [facility] Mucus [Presence] in Urine sediment by Light microscopy 2+ NOR MAL: NONE SEEN A [facility] ID Date Data Source [id number] 05/26/2021 02:29:00 AM EDT [facility] Name Value Range Interpretation Code Description Data Catherine rce(s) Supporting Document(s) COMPREHENSIVE METABOLIC PANEL [facility] COMPREHENSIVE METABOLIC PANEL Sodium [Moles/volume] in Serum or Plasma 138 mEq/L 134 - 153 [facility] Potassium [Moles/volume] in Serum or Plasma 4.9 mEq/L 3.6 - 5.0 [facility] SLIGHTLY HEMOLYZED SAMPLE Chloride [Moles/volume] in Serum or Plasma 103 mEq/L 98 - 107 [facility] Carbon dioxide, total [Moles/volume] in Serum or Plasma 22 MEQ/L 22 - 30 [facility] Glucose [Mass/volume] in Serum or Plasma 118 MG/DL 70 - 99 H [facility] BUN 14 MG/DL 7 - [facility] Creatinine [Mass/volume] in Serum or Plasma 0.7 MG/DL 0.7 - 1.5 [facility] BUN/CREAT 20 8 - [address] [facility] Protein [Mass/volume] in Serum or Plasma 8.7 G/DL 6.3 - 8.2 H [facility] Albumin [Mass/volume] in Serum or Plasma 4.9 G/DL 3.9 - 5.0 [facility] Globulin [Mass/volume] in Serum by calculation 3.8 GM/DL 2.4 - 3.2 H [facility] A/G RATIO 1.3 0.8 - 2.0 [facility] al Calcium [Mass/volume] in Serum or Plasma 10.5 MG/DL 8.4 - 10.2 H [facility] Bilirubin.total [Mass/volume] in Serum or Plasma 0.7 MG/DL 0.2 - 1.3 [facility] Alkaline phosphatase [Enzymatic activity/volume] in Serum or Plasma 77 U/L 38 - 126 [facility] Aspartate aminotransferase [Enzymatic activity/volume] in Serum or Plasma 36 U/L 5 - 40 [facility] Alanine aminotransferase [Enzymatic activity/volume] in Seru m or Plasma 28 U/L 7 - 56 [facility] Anion gap 3 in Serum or Plasma 13.0 mmol/L 8.0 - 16.0 [facility] AGE 41 yrs [facility] NON-AA GFR >60 mL/min [facility] ital AFR AMER GFR >60 mL/min [facility] Male GFR In terprentation 20-49 yrs >60 mL/min Normal 50-59 yrs >56 mL/min Normal 60-69 yrs >49 mL/min Normal 70-79yrs >42 mL/min Normal 80 and above >35 mL/min Normal Female GFR Interpretation 20-39 yrs >60 mL/min Normal 40-49 yrs >58 mL/min Normal 50-59 yrs >51 mL/min Normal 60-69 yrs >45 mL/min Normal 70-79 yrs >39 mL/min Normal 80 and above >32 mL/min Normal ID Date Data Source [id number] 05/26/2021 01:56:00 AM EDT [facility] Name Value Range Interpretation Code Description Data Catherine rce(s) Supporting Document(s) CBC W/AUTOMATED DIFF [facility] COMPLETE BLOOD COUNT Leukocytes [#/volume] in Blood by Automated count 14.0 10^3/uL 4.2 - 11.0 H [facility] Erythrocytes [#/volume] in Blood by Automated count 4.56 10^6/uL 4. 20 - 5.40 [facility] Hemoglobin [Mass/volume] in Blood 13.2 g/dL 12.0 - 16.0 [facility] Hematocrit [Volume Fraction] of Blood by Automated count 38.2 % 3 7.0 - 47.0 [facility] Erythrocyte mean corpuscular volume [Entitic volume] by Auto mated count 83.8 fL 81.0 - 101 [facility] Erythrocyte mean corpuscular hemoglobin [Entitic mass] by Automated count 28.9 pg 27.0 - 34.0 [facility] Erythrocyte mean corpuscular hemoglobin concentration [Mass/volume] by Automated count 34.6 g/dL 31.0 - 36.0 [facility] Erythrocyte distribution width [Ratio] by Automated count 11.6 % 11.5 - 14.5 [facility] Platelets [#/volume] in Blood by Automated count 368 10^3/uL 150 - 45 0 [facility] Platelet mean volume [Entitic volume] in Blood by Automated count 9.2 fL 7.4 - 10.4 [facility] Neutrophils/100 leukocytes in Blood by Automated count 87.8 % 37. 0 - 80.0 H [facility] Lymphocytes/100 leukocytes in Blood by Manual count 6.6 % 25.0 - 40.0 L [facility] Monocytes/100 leukocytes in Blood by Automated count 4.9 % 3.0 - 8.0 [facility] Eosinophils/100 leukocytes in Blood by Automated count 0.1 % 0.0 - 7.0 [facility] Basophils/100 leukocytes in Blood by Automated count 0.2 % 0.0 - 2.5 [facility] %IG 0.4 % 0.0 - 0.0 [facility] %NRBC 0.0 % 0.0 - 0.0 [facility] al Neutrophils [#/volume] in Blood by Automated count 12.29 10^3/uL 2. 00 - 6.90 H [facility] Lymphocytes [#/volume] in Blood by Automated count 0.93 10^3/uL 0.60 - 3.40 [facility] Monocytes [#/volume] in Blood by Automated count 0.68 10^3/uL 0.00 - 0.90 [facility] Eosinophils [#/volume] in Blood by Automated count 0.01 10^3/uL 0.00 - 0.70 [facility] Basophils [#/volume] in Blood by Automated count 0.03 10^3/uL 0.00 - 0.20 [facility] #IG 0.05 10^3/uL 0.00 - 0.10 [facility] ospital #NRBC 0.00 10^3/uL 0.00 - 0.00 [facility]ital MANUAL DIFF NOT INDICATED [facility] RBC MORPH NOT INDICATED [facility] ID Date Data Source [id number] 05/25/2021 05:53:00 PM EDT [facility] 1 OrderSheet [facility] Emergency Department [address] [place] [address] Phone #: ext- [phone] 05/25/2021 17:35 Patient: MILAN AZEVEDO Sex: F : 1980 Age: 41yWEIGHT:79.3 kg HEIGHT:63 inches BMI:31.0ALLERGIES: No Known Drug AllergyDIAGNOSIS: Hypertensive disorderLAB ORDERSOrder Description Priority Entered Acknowledged InitialedBMP STAT 18:04 05/25/2021 18:07 Meaghan Alfred Jack ; Makayla AlvarezUrinalysis (Clean STAT 18:05/25/2021 Ack'd: 18:07 19:30 TimaCatch) Kahlil Mcelroy ; Makayla Alfred.NMinh R.NMinhDIAGNOSTIC STUDY ORDERSOrder Description Priority Entered Acknowledged InitialedMEDICATION/IV/DRIP/FLUID ORDERSOrder Description Priority Entered Acknowledged Initialed- (lisinopril 10 mg 18:04 05/25/2021 Ack'd: 18:07 18:54 Tima,PO) Kahlil Mcelroy ; Makayla Alfred.N. R.N.-- (HCTZ 25 mg PO) 18:04 05/25/2021 Ack'd: 18:07 18:55 Meaghan Alfred Jack ; Makayla Alfred.NMinh R.NMinhGENERAL ORDERSOrder Description Priority Entered Acknowledged Initialed[Electronically signed by Makayla Alfred R.N. (19:33 05/25/2021)][Electronically signed by Kahlil Mcelroy (21:04 05/25/2021)][Electronically locked by Makayla Alfred R.N. (19:33 05/25/2021)] Name Value Range Interpretation Code Description Data Catherine rce(s) Supporting Document(s) ID Date Data Source [id number] 05/25/2021 05:53:00 PM EDT [facility] 1 Medication Reconciliation Report [facility] Emergency Department [address] [place] [address] Phone #: ext- [phone] 05/25/2021 17:35 [id number] Sex[facility] F : 1980 Age: 41yWeight: 79.3 kgHeight/Length: 63 in.BMI: 31.0ALLERGIES: No Known Drug AllergyThe patient's Home Medications are listed below:CONTINUE TAKING THE FOLLOWING MEDICATIONS: Cymbalta Oral tiZANidine HCl OralThe source(s) of the original Home Medication information:Not obtained.The following Medications were given to the patient in the Emergency Department:Lisinopril [PO] PO 10 mg, administered: 18:44 05/25/2021Hydrochlorothiazide [PO] PO 25 mg, administered: 18:50 05/25/2021The following Medications were prescribed to the patient:lisinopril 20 mg-hydrochlorothiazide 12.5 mg tablet Take 1 tablet once a day -- Dispense 14 tablet.Refills: 0. Substitution permitted.Pharmacy - [id number] - [phone] [facility] ; [place], [place] [id number]. . -- Kahlil Mcelroy Name Value Range Interpretation Code Description Data Catherine rce(s) Supporting Document(s) ID Date Data Source [id number] 05/25/2021 05:53:00 PM EDT [facility] 1 Medication Administration Record [facility] Emergency Department [address] [place] [address] Phone #: ext- [phone] 05/25/2021 17:35 Patient: MILAN AZEVEDO Sex: F : 1980 Age: 41yWeight: 79.3 kgHeight/Length: 63 inBMI: 31ALLERGIES: No Known Drug Allergy Date/Time Medication Administered Medication OrderedGiven LISINOPRIL [PO] - (lisinopril 10 mg PO)18:44 05/25/2021 Dose: 10 mg Tablets Makayla Hernandez, R.N.Given HYDROCHLOROTHIAZIDE [PO] -- (HCTZ 25 mg PO)18:50 05/25/2021 Dose: 25 mg Tablets Makayla Hernandez, R.N. Name Value Range Interpretation Code Description Data Catherine rce(s) Supporting Document(s) ID Date Data Source [id number] 05/25/2021 05:53:00 PM EDT [facility] 1 General Instructions [facility] Emergency Department [address] [place] [address] Phone #: ext- [phone] 05/25/2021 17:35 Patient: MILAN AZEVEDO Sex: F : 1980 Age: 41yUncontrolled essential hypertension.INSTRUCTIONSWarnings: Further evaluation is necessary.GENERAL WARNINGS: Return or contact your physician immediately if your condition worsens orchanges unexpectedly, if not improving as expected, or if other problems arise.Your Current Medications: Your current home medications have been reviewed.CONTINUE TAKING THE FOLLOWING MEDICATIONS:Cymbalta Oral.tiZANidine HCl Oral.Prescription Medications:lisinopril 20 mg-hydrochlorothiazide 12.5 mg table t Take 1 tablet once a day -- Dispense 14 tablet.Refills: 0. Substitution permitted.Pharmacy - [facility] - [address] [place], [place] [id number]. .Understanding of the discharge instructions verbalized by patient.Follow-up with: [facility] Respective Team Yaron JOAQU[place], , , [address] [address], , [place], [address] Follow up in three days if not better. Call for an appointment. Reason for referral: evaluation. ADDITIONAL INFORMATIONHigh Blood Pressure, New, Begin TreatmentYour blood pressure was high enough today to start treatment with medicines. Often healthcareproviders don't know what causes high blood pressure (hypertension). But it can be controlled withlifestyle changes and medicines. High blood pressure usually has no symptoms. But it can sometimescause headache, dizziness, blurred vision, a rushing sound in your ears, chest pain, or shortness ofbreath. But even without symptoms, high blood pressure that's not treated raises your risk for heartattack, heart failure, kidney disease, vascular disease, and stroke. High blood pressure is a serioushealth risk and shouldn't be ignored. 2 General Instructions [facility] Emergency Department [address] [place] [address] Phone #: ext- [phone] 05/25/2021 17:35 Patient: MILAN AZEVEDO Sex: F : 1980 Age: 41yBlood pressure measurements are given as 2 numbers. Systolic blood pressure is the upper number. This is the pressure when the heart contracts. Diastolic blood pressure is the lower number. This is the pressure when the heart relaxes between beats.You will see your blood pressure readings written together. For example, a person with a systolicpressure of 118 and a diastolic pressure of 78 will have 118/78 written in the medical record.Blood pressure is categorized as normal, elevated, or stage 1 or stage 2 high blood pressure: Normal blood pressure is systolic of less than 120 and diastolic of less than 80 (120/80) Elevated blood pressure is systolic of 120 to 129 and diastolic less than 80 Stage 1 high blood pressure is systolic is 130 to 139 or diastolic between 80 to 89 Stage 2 high blood pressure is when systolic is 140 or higher or the diastolic is 90 or higherHome careIf you have high blood pressure, do what's listed below to lower your blood pressure. If you are takingmedicines for high blood pressure, these methods may reduce or end your need for medicines in thefuture. Begin a weight-loss program if you are overweight. Cut back on how much salt you get in your diet. Here's how to do this: o Don't eat foods that have a lot of salt. These include olives, pickles, smoked meats, and salted potato chips. o Don't add salt to your food at the table. o Use only small amounts of salt when cooking. o Review food labels to track how much salt is in prepared foods. o When eating out, ask that no additional salt be added to your food order. 3 General Instructions [facility] Emergency Department [address] [place] [address] Phone #: ext- [phone] 05/25/2021 17:35 Patient: MILAN AZEVEDO Sex: F : 1980 Age: 41y o Ask your provider about the DASH diet or the DASH (dietary approaches to stop hypertension) eating plan. Start an exercise program. Talk with your healthcare provider about the type of exercise program that would be best for you. It doesn't have to be hard. Even brisk walking for 20 minutes 3 times a week is a good form of exercise. Don't take medicines that have heart stimulants. This includes many setg-gli-sqfrdfz cold and sinus decongestant pills and sprays, as well as diet pills. Check the warnings about high blood pressure on the label. Before purchasing any yhvf-ukr-vqrlhlp medicines or supplements, always ask the pharmacist about the product's potential interaction with your high blood pressure and your high blood pressure medicines. Stimulants such as amphetamine or cocaine could be lethal for someone with high blood pressure. Never take these. Limit how much caffeine you get in your diet. Switch to caffeine-free products. Stop smoking. If you are a long-time smoker, this can be hard. Enroll in a stop- smoking program to make it more likely that you will quit for good. Or, talk with your healthcare provider about nicotine replacements or medicines that can help. Learn how to handle stress. This is an important part of any program to lower blood pressure. Learn about relaxation methods like meditation, yoga, or biofeedback. If your provider prescribed medicines, take them exactly as directed. Missing doses may cause your blood pressure to get out of control. If you miss a dose or doses, check with your healthcare provider or pharmacist about what to do. Limit alcohol. Drinking too much alcohol can raise blood pressure. Men should have no more than 2 drinks a day. Women should have no more than 1. A drink is equal to 1 beer, or a small glass of wine, or a shot of liquor.. Consider buying an automatic blood pressure machine so you can check your blood pressure regularly at home. Your provider can make a recommendation. You can get one of these at most pharmacies.The [employer] recommends the following guidelines for home blood pressuremonitoring: Don't smoke or drink coffee or other caffeinated drinks or exercise for 30 minutes before taking your blood pressure. Go to the bathroom before the test. 4 General Instructions [facility] Emergency Department [address] [place] [address] Phone #: ext- [phone] 05/25/2021 17:35 Patient: MILAN AZEVEDO Sex: F : 1980 Age: 41y Relax for 5 minutes before taking the measurement. Sit with your back supported (don't sit on a couch or soft chair); keep your feet on the floor uncrossed. Place your arm on a solid flat surface (like a table) with the upper part of the arm at heart level. Place the middle of the cuff directly above the bend of the elbow. Check the monitor's instruction manual for an illustration. Take multiple readings. When you measure, take 2 to 3 readings one minute apart and record all of the results. Take your blood pressure at the same time every day, or as your healthcare provider recommends. Record the date, time, and blood pressure reading. Take the record with you to your next medical appointment. If your blood pressure monitor has a built- in memory, simply take the monitor with you to your next appointment. Call your provider if you have several high readings. Don't be frightened by a single high blood pressure reading, but if you get several high readings, check in with your healthcare provider. Note: If blood pressure reaches a systolic (top number) of 180 or higher OR diastolic (bottom number) of 120 or higher, seek emergency medical treatment.Follow-up careBecause a new blood pressure medicine was started today, it's important that you have your bloodpressure rechecked. This is to make sure that the medicine is working and that you have no seriousside effects. Keep all your follow up appointments. Write down medicine and blood pressurequestions and bring them to your next appointment. If you have pressing concerns about your newmedicine or your blood pressure, call your provider. Unless told otherwise, follow up with yourhealthcare provider within the next 3 days.When to seek medical careCall your healthcare provider right away if any of these occur: Blood pressure reaches a systolic (top number) of 180 or higher, OR diastolic (bottom number) of 120 or higher, seek emergency medical treatment. Chest pain or shortness of breath Severe headache Throbbing or rushing sound in the ears 5 General Instructions [facility] Emergency Department [address] [place] [address] Phone #: ext- [phone] 05/25/2021 17:35 Patient: MILAN AZEVEDO Sex: F : 1980 Age: 41y Nosebleed Sudden severe pain in your belly (abdomen) Extreme drowsiness, confusion, or fainting Dizziness or dizziness with a spinning sensation (vertigo) Weakness of an arm or leg or one side of the face You have problems speaking or seeing [employer]. [address] [place] [address], [place] [address]. All rights reserved. This information is not intended as asubstitute for professional medical care. Always follow your healthcare professional's instructions. You have been given the following additional information: Hypertension, New (Begin Treatment)(Electronically signed by Kahlil Mcelroy 05/25/2021 21:04) Name Value Range Interpretation Code Description Data Catherine rce(s) Supporting Document(s) ID Date Data Source [id number] 05/25/2021 05:53:00 PM EDT [facility] 1 Clinical Report - Nurses [facility] Emergency Department [address] [place] [address] Phone #: ext- [phone] 05/25/2021 17:35 Patient: MILAN AZEVEDO Sex: F : 1980 Age: 41yTRIAGEAcuity: LEVEL 3.Chief Complaint: (ELEVATED BP).Alert. No acute distress.( Patient was sent from [facility] for elevated BP; 175/125 at doctors appt. Pt states she has a headache,denies dizziness or chest pain.).SEPSIS SCREEN: SIRS SCREEN NEGATIVE: heart rate greater than 90. SEPSIS S CREEN NEGATIVE.No suspected or confirmed signs of infection present.HARDY COMA SCORE: 15- eyes open- spontaneous (4); best verbal response- oriented (5); bestmotor response- obeys commands (6). --17:41 05/25/21 Krystle Phillips R.N.17:36 05/25/21. BP: 173/99. HR: 93. RR: 16. O2 saturation: 97%. Temp: 98.3 F. Pain level now 4/10.--17:41 05/25/21 Krystle Phillips R.N.Weight: 79.3 kg. Height/Length: 63 inches. BMI: 31. --17:41 05/25/21 Krystle Phillips R.N.MedicationsCymbalta Oral. --17:39 05/25/21 Krystle Phillips R.N. tiZANidine HCl Oral. --17:39 05/25/21 Krystle Phillips R.N.AllergiesNo Known Drug Allergy. --17:39 05/25/21 Krystle Phillips R.N.PROBLEMS:Ovarian Cyst.Slipped Capital Femoral Epiphysis. --17:39 05/25/21 Krystle Phillips R.N.ADDITIONAL SURGERIES:Appendectomy.C section.Hip Surgery.Shoulder Surgery. --17:39 05/25/21 Krystle Phillips R.N.HistoryPAST MEDICAL HX: Last normal menstrual period now- May 25.SOCIAL HX: Never smoker. Occasional alcohol use. No drug use. She was offered HIV testing but 2 Clinical Report - Nurses [facility] Emergency Department [address] [place] [address] Phone #: [phone]- [phone] 05/25/2021 17:35 Patient: MILAN AZEVEDO Sex: F : 1980 Age: 41y declined and hepatitis C testing but declined. She has not traveled outside the [place] Infectious disease exposure: The patient was not exposed to C-diff, MRSA or Coronavirus. SELF HARM ASSESSMENT: Self harm assessment was performed. The patient answered "no" to the question(s) & quot;Have you recently felt down, depressed, or hopeless?", "Do you have thoughts of harming or killing yourself?", "Do you have a plan for harming or killing yourself?" and "Have you recently had thoughts about harming or killing others?". ABUSE ASSESSMENT: No report of abuse. NUTRITIONAL RISK ASSESSMENT: The nutritional risk assessment revealed no deficiencies. FUNCTIONAL ASSESSMENT: Functional assessment: no impairments noted. LEARNING NEEDS ASSESSMENT: The learning needs assessment revealed no barriers. FALL RISK ASSESSMENT: Fall risk assessment completed. No risk factors identified. SKIN INTEGRITY ASSESSMENT: Skin integrity risk assessment completed. No skin integrity risk identified. --17:41 05/25/21 Krystle Phillips R.N. FAMILY HX: Mother: Essential Hypertension. --18:10 05/25/21 Kahlil Mcelroy. Interventions Identification band on patient. To treatment room. --17:41 05/25/21 Krystle Phillips R.N.PHYSICAL ASSESSMENTlate entry - 17:50 05/25/21. Ambulatory to room.GENERAL / NEURO / PSYCH: Alert. Oriented X 4. Appears in no acute distress.HEENT: Pupils equal, round and reactive to light. No facial asymmetry noted. Mucous membranes arepink.RESPIRATORY: Respirations not labored. Chest nontender. Breath sounds within normal limits.CVS: Normal sinus rhythm noted. Capillary refill less than 2 seconds. Pulses within normal limits.GI / : Abdomen soft and nontender and normal bowel sounds.SKIN: Skin intact. Skin is warm and dry. Normal skin turgor. --18:05 05/25/21 Makayla Alfred R.N.NURSING PROGRESS NOTESMonitoring of patient in place. Patient gowned. Reassurance given. Three patient identifiers checked.Call light placed in reach. Side rails up x 2. Bed placed in lowest position. Brakes of bed on. Patientready for evaluation- ED physician notified. --18:05 05/25/21 Makayla Alfred R.N. EKG time: (17:46 05/25/2021). EKG was performed by a tech and shown to the ED physician. --18:06 05/25/21 Makayla Alfred R.N. 3 Clinical Report - Nurses [facility] Emergency Department [address] [place] [address] Phone #: ext- [phone] 05/25/2021 17:35 [id number] Sex[facility] : 1980 Age: 41y 18:09 05/25/21. BP: 182/98. HR: 80. RR: 16. O2 saturation: 99%. --18:09 05/25/21 [facility], [facility] Tech 18:34 05/25/21. BP: 161/95. HR: 88. RR: 16. O2 saturation: 98%. --18:34 05/25/21 [facility], [facility] Tech 18:44 05/25/2021 Lisinopril PO Tablets 10 mg given. Allergies verified an d confirmed 5 rights. Information reviewed with patient including reason for taking this medication, signs of allergic reaction and precautions. Verbalizes understanding. --18:54 05/25/21 Makayla Alfred R.N. 18:50 05/25/2021 Hydrochlorothiazide PO Tablets 25 mg given. Allergies verified and confirmed 5 rights. Information reviewed with patient including reason for taking this medication, signs of allergic reaction and precautions. Verbalizes understanding. --18:55 05/25/21 Makayla Alfred R.N.DISPOSITION / DISCHARGE 19:07 05/25/21. BP: 160/104. HR: 86. RR: 16. O2 saturation: 97%. Temp: 97.2 F. --19:07 05/25/[address] [facility] Hardy Coma Scale: 15- eyes open- spontaneous (4); best verbal response- oriented (5); best motor response- obeys commands (6). Departure time: late entry - 19:28 05/25/2021. Condition at departure: improved and stable. No learning barriers present. Discharge instructions provided and reviewed with the patient. Reviewed warnings. Reviewed medication(s) side effects, precautions, dosing and course information. Prescription(s) sent electronically to pharmacy (Lisinopril-HCTZ). Reviewed referrals. Patient verbalized understanding. Written instructions provided in Swazi. The patient was discharged by the physician. She was discharged home and unaccompanied at time of discharge. She left ambulatory and via private vehicle. Patient driving. --19:32 05/25/21 Makayla Alfred R.N. 19:28 05/25/21. Pain level now: 0/10. --19:32 05/25/21 Makayla Alfred R.N.Locked/Released at 05/25/2021 19:33 by Makayla Alfred R.N. Name Value Range Interpretation Code Description Data Catherine rce(s) Supporting Document(s) ID Date Data Source [id number] 05/25/2021 05:53:00 PM EDT [facility] 1 Clinical Report - Physicians/Mid Levels [facility] Emergency Department [address] [place] [address] Phone #: ext- [phone] 05/25/2021 17:35 Patient: MILAN AZEVEDO Sex: F : 1980 Age: 41y Time Seen: 18:02 05/25/2021. Arrived- By private vehicle. Historian- patient.HISTORY OF PRESENT ILLNESS Chief Complaint: BLOOD PRESSURE CHECK and ELEVATED. This started several months and is still present. It has been constant. Modifying factors. Not worsened by anything. No loss of appetite, headache or weakness. (Seen at clinic on [address] and told her BP was high. Her blood pressure high over last 6-7 months. No chest pain or dizziness. She has been dealing with left hip pain for over a year). Recent medical care: The patient was seen recently in the emergency department and office.REVIEW OF SYSTEMSNo fever, cough, difficulty breathing, chest pain or abdominal pain. No vomiting, difficulty with urination,back pain or headache. She has had moderate joint pain, involving the left hip. All other systemsreviewed and are negative.PAST HISTORYSee nurses notes. Problems: Arthritis. (Left hip) Sciatica. Ovarian Cyst. Slipped Capital Femoral Epiphysis. Additional Surgeries: Appendectomy. C section. Hip Surgery. Shoulder Surgery. Medications: tiZANidine HCl Oral. Cymbalta Oral. Allergies: No Known Drug Allergy.SOCIAL HISTORYNever smoker. No alcohol use. 2 Clinical Report - Physicians/Mid Levels [facility] Emergency Department [address] [place] [address] Phone #: ext- [phone] 05/25/2021 17:35 Patient: MILAN AZEVEDO Sex: F : 1980 Age: 41yFAMILY HISTORYMother: Essential Hypertension.ADDITIONAL NOTESThe nursing notes have been reviewed.PHYSICAL EXAMVital Signs: 05/25/2021 17:36 BP: 173/99. MAP: 123. HR: 93. RR: 16. O2 saturation: 97%. Temp: 98.3 F.Appearance: Alert. No acute distress.Eyes: Pupils equal, round and reactive to light.ENT: Nose normal. Pharynx normal.Neck: Normal inspection. Neck supple.CVS: Normal heart rhythm and rate. Heart sounds normal. Pulses normal.Respiratory: No respiratory distress. Breath sounds normal. Chest nontender.Abdomen: No visible injury. Soft and nontender.Back: Normal inspection.Extremities: Extremities exhibit normal ROM. No lower extremity edema.Neuro: Oriented X 3. No motor deficit. No sensory deficit. Reflex exam: right patellar 2+ and leftpatellar 2+.LABS, X-RAYS, AND EKGEKG: EKG time: 17:46 05/25/2021. Rate: 80. Normal P waves. Normal QRS complex. Normal axis.Normal ST and T waves and QT. The study has been interprete d contemporaneously by me.Interpretation time: 17:56 05/25/2021.Laboratory Tests: BMP: (KELLIE: 05/25/2021 18:23) ( MsgRcvd 05/25/2021 18:44) Final results Test Result Flag Units (Reference) BASIC METABOLIC PANEL BASIC METABOLIC PANEL SODIUM 142 mEq/L (134 - 153) POTASSIUM 3.7 mEq/L (3.6 - 5.0) CHLORIDE 106 mEq/L (98 - 107) CO2 24 MEQ/L (22 - 30) GLUCOSE 97 MG/DL (70 - 99) BUN 14 MG/DL (7 - 21) CREATININE 0.7 MG/DL (0.7 - 1.5) BUN/CREAT 20 (8 - 27) CALCIUM 9.9 MG/DL (8.4 - 10.2) ANION GAP 12.0 mmol/L (8.0 - 16.0) AGE 41 yrs AFR AMER GFR >60 mL/min NON-AA GFR >60 mL/min Male GFR Interprentation 20-49 yrs >60 mL/min Normal 50-59 yrs >56 mL/min Normal 60-69 yrs >49 mL/min Normal 70-79yrs >42 mL/min Normal 80 and above >35 mL/min Normal Female GFR Interpretation 20-39 yrs >60 mL/min Normal 40-49 yrs >58 mL/min Normal 50-59 yrs >51 mL/min Normal 60-69 yrs >45 mL/min Normal 70-79 yrs >39 mL/min Normal 80 and above >32 mL/min Normal 3 Clinical Report - Physicians/Mid Levels [facility] Emergency Department [address] [place] [address] Phone #: ext- [phone] 05/25/2021 17:35 [id number] Sex: F : 1980 Age: 41y.PROGRESS AND PROCEDURESCourse of Care: 18:56 05/25/21. During her other two visits, her blood pressure elevated. Currentlyasymptomatic. No dyspnea on exertion, chest pain, dizziness or end organ damage. Will start onlisinopril/hctz 19:02 05/25/21. bp is 161/96 at time of discharge. Patient/family counseled. Disposition: Discharged. Condition: stable.CLINICAL IMPRESSION Uncontrolled essential hypertension.INSTRUCTIONS Warnings: Further evaluation is necessary. GENERAL WARNINGS: Return or contact your physician immediately if your condition worsens or changes unexpectedly, if not improving as expected, or if other problems arise. Your Current Medications: Your current home medications have been reviewed. CONTINUE TAKING THE FOLLOWING MEDICATIONS: Cymbalta Oral. tiZANidine HCl Oral. Prescription Medications: lisinopril 20 mg-hydrochlorothiazide 12.5 mg tablet Take 1 tablet once a day -- Dispense 14 tablet. Refills: 0. Substitution permitted. Pharmacy - [id number] [address] [place], [place] [id number]. Phone: . Understanding of the discharge instructions verbalized by patient. Follow-[facility] with: [facility] Res[facility] Team [place]aron [place], , , [id number], , [place], [address] Follow up in three days if not better. Call for an appointment. Reason for referral: evaluation. 4 Clinical Report - Physicians/Mid Levels [facility] Emergency Department [address] [place] [address] Phone #: ext- [phone] 05/25/2021 17: 35 Patient: MILAN AZEVEDO Sex: F : 1980 Age: 41y(Electronically signed by Kahlil Mcelroy 05/25/2021 21:04) Name Value Range Interpretation Code Description Data Catherine rce(s) Supporting Document(s) ID Date Data Source [id number] 05/25/2021 06:44:00 PM EDT [facility] Name Value Range Interpretation Code Description Data Catherine rce(s) Supporting Document(s) BASIC METABOLIC PANEL [facility] BASIC METABOLIC PANEL Sodium [Moles/volume] in Serum or Plasma 142 mEq/L 134 - 153 [facility] Potassium [Moles/volume] in Serum or Plasma 3.7 mEq/L 3.6 - 5.0 [facility] Chloride [Moles/volume] in Serum or Plasma 106 mEq/L 98 - 107 [facility] Carbon dioxide, total [Moles/volume] in Serum or Plasma 24 MEQ/L 22 - 30 [facility] Glucose [Mass/volume] in Serum or Plasma 97 MG/DL 70 - 99 [facility] BUN 14 MG/DL 7 - [address] [facility] Creatinine [Mass/volume] in Serum or Plasma 0.7 MG/DL 0.7 - 1.5 [facility] BUN/CREAT 20 8 - [address] [facility] Calcium [Mass/volume] in Serum or Plasma 9.9 MG/DL 8.4 - 10.2 [facility] Anion gap 3 in Serum or Plasma 12.0 mmol/L 8.0 - 16.0 [facility] AGE [address] [facility] AFR AMER GFR >60 mL/min [facility] Ho spital NON-AA GFR >60 mL/min [facility] ital Male GFR Inter prentation 20-49 yrs >60 mL/min Normal 50-59 yrs >56 mL/min Normal 60-69 yrs >49 mL/min Normal 70-79yrs >42 mL/min Normal 80 and above >35 mL/min Normal Female GFR Interpretation 20-39 yrs >60 mL/min Normal 40-49 yrs >58 mL/min Normal 50-59 yrs >51 mL/min Normal 60-69 yrs >45 mL/min Normal 70-79 yrs >39 mL/min Normal 80 and above >32 mL/min Normal ID Date Data Source [id number] 05/24/2021 02:07:33 PM EDT [facility] MR EXTREMITY LOWER JOINT WITHOUT CONTRAS T [id number] RESULTInterpreted by:Cameron Oliveros, MDSTUDY: MRI OF THE LEFT HIP. COMPARISON: Pelvic and hip radiographs dated 03/09/2021.INDICATION: 41-year-old female presenting for follow-up evaluation of left hip pain. History of right SCFE.TECHNIQUE: Multiplanar imaging is performed of the left hip using multiple pulse sequences.FINDINGS: Pelvic bones appear intact. There are mild degenerative changes of the pubic symphysis with mild joint space narrowing and mild peripheral osteophytosis. The sacroiliac joints appear intact. There is mild asymmetric edema within the origin of the left adductor longus muscle off the left pubic body. Skeletal muscle intrinsic to the pelvis, proximal thighs and gluteal regions otherwise remains unremarkable.With regards to the left hip, the osseous structures appear intact. Mild surface irregularity of the superior left acetabular cartilage. The acetabulum appears intact and normally formed. The femoral head is intact without cortical collapse, osteonecrosis or marrow edema. The femoral head-neck junction appears normal without evidence of CAM morphology. A physiologic volume joint fluid is present. No gross acetabular tear. No loose body is appreciated. With regards to the right hip, there is mild femoral head height loss with widening of the femoral neck consistent with remote posterior, medial, and anterior slippage of the proximal femoral epiphysis and compatible with chronic changes secondary to reported remote SCFE. There are mild to moderate degenerative changes associated with the right superior femoral and acetabular cartilage. There is a right adnexal cyst with a small layering decreased T1 and T2 signal component, overall measuring approximately 4.4 x 4.7 x 4.0 cm, consistent with a mildly complex cyst. There is a questionable fatty component along the inferior aspect of the cystic structure that raises the question of a dermoid. IMPRESSION: 1. Mild surface irregularity of the superior left acetabular cartilage. The left hip joint otherwise appears normal.2. Chronic changes of the proximal right femur consistent reported remote SCFE.3. Mild to moderate degenerative changes of the right hip joint.4. Mild asymmetric edema within the origin of the left adductor longus muscle off the pubic body, compatible with mild left groin muscle strain.5. Mildly complex right adnexal cyst as described above. Recommend clinical correlation. If clinically indicated, further evaluation with dedicated pelvic ultrasound may be helpful.This document has been electronically signed by Chas Naidu MD on 05/24/2021 2:05 PM Name Value Range Interpretation Code Description Data Catherine rce(s) Supporting Document(s) ID Date Data Source [id number] 04/30/2021 10:37:28 AM EDT [facility] Name Value Range Interpretation Code Description Data Catherine rce(s) Supporting Document(s) Progress Note [facility] FOLCVa2pCpFCYcLg46/GPFhyLEWwi4GfMNvpUOe8COasXASyB5NkMSZ7zR8oNUR7YZaOYmApLtGaHXZa lbm [file] E+DQogICAgICAgICAgICAgICAgICAgICAgICAgICAgICAgICAgICAgICAgICAgICAgICAgICAgICAgIC AgICAgICAgICAgICAgICAgICAgICAgICAgICAgICAg ICAgICAgICAgICAgDQogICAgICAgICAgICAgICAgICAgICAgICAgICAgICAgICAgICAgICAgICAgICAg ICAgICAgICAgICAgICAgICAgICAgICAgICAgICAgICAgICAgICAgICAgICAgICAgICAgICAgDQogICAg ICAgICAgICAgICAgICAgICAgICAgICAgICAgICAgIC AgICAgICAgICAgICAgICAgICAgICAgICAgICAgICAgICAgICAgICAgICAgICAgICAgICAgICAgICAgIC AgICAgDQogICAgICAgICAgICAgICAgICAgICAgICAgICAgICAgICAgICAgICAgICAgICAgICAgICAgIC AgICAgICAgICAgICAgICAgICAgICAgICAgICAgICAg ICAgICAgICAgICAgICAgDQogICAgICAgICAgICAgICAgICAgICAgICAgICAgICAgICAgICAgICAgICAg ICAgICAgICAgICAgICAgICAgICAgICAgICAgICAgICAgICAgICAgICAgICAgICAgICAgICAgICAgDQog ICAgICAgICAgICAgICAgICAgICAgICAgICAgICAgIC AgICAgICAgICAgICAgICAgICAgICAgICAgICAgICAgICAgICAgICAgICAgICAgICAgICAgICAgICAgIC AgICAgICAgDQogICAgICAgICAgICAgICAgICAgICAgICAgICAgICAgICAgICAgICAgICAgICAgICAgIC AgICAgICAgICAgICAgICAgICAgICAgICAgICAgICAg ICAgICAgICAgICAgICAgICAgDQogICAgICAgICAgICAgICAgICAgICAgICAgICAgICAgICAgICAgICAg ICAgICAgICAgICAgICAgICAgICAgICAgICAgICAgICAgICAgICAgICAgICAgICAgICAgICAgICAgICAg DQogICAgICAgICAgICAgICAgICAgICAgICAgICAgIC AgICAgICAgICAgICAgICAgICAgICAgICAgICAgICAgICAgICAgICAgICAgICAgICAgICAgICAgICAgIC AgICAgICAgICAgDQogICAgICAgICAgICAgICAgICAgICAgICAgICAgICAgICAgICAgICAgICAgICAgIC AgICAgICAgICAgICAgICAgICAgICAgICAgICAgICAg LMAwNIUtWKXyGXWxDCAxSJOcIPTvZIy7B0heEUTzNTYaOY6dDSh6Nd8+BZbRHhLeWEL0vrFwmI2QQM1i z3WvLWdkQZVae9ZmHLj9AT9PKXOsVLsjKM8HYJfazc7XEVIwKWNxhOFRq1zqXeNrFXD0UDIhYrxfLQ9M AWAhG9galdQzCDDtVVLYLFuhXUAXHH2RVhDiV7OnyQ 64QCVVBr2+GVlqayMeZssZBzP7VVIqt1HlLWb3UG8KJHPcBsdap0FfLpToUGMINOikXP4FIMS1PDE0FW BoNx1LKPNfK674lsEaTV7YHp2WJpQvNE2mjd8QGrIyUEZzUclWSka7UJzbMX2IzTMnJNyYta2nmhChwv TIs3JtbeZtyXYZzSRnNPUvZ42mtl7fuPvmOXHQGJE2 TQngSg4qRLFdTUHjSuAcEUHNYY9WTQAtDPIezMJoDNKsJMPLDP7UNAmqQYO2BFOvlzGuuOKtXDjcHR5F YXJlbnQgMjQgMCBSDQo+Uv7NMA8oc4VjTRqmSyUeVU4qxk7GQUfSJmDcN9L9nCNnT5E7XVnqBd5HRCLu NPFnFbCkRALHHEweUR4DCV8ccnY5SW9FfCGgLAXzFV ItyJEgSHe1I66ubSZkYLiiPB0RECS+Jordan+Mz6ZKJRsUMYxZHRmSkRtGHYERtPmS1DlS2JEi7BiT8OqTB 71cOviyiJrEWqbFS1GKA7mHIBlZXSGSP5CrEEjnO2riiXzOZWaWJUEBmBuX24iaHRiBUGmPSZkKAYgFq 2BVNKeB4QteqHjmOjpqeIqTSHvLWHNMC0FIArniyOg kYSztVwfZY59lNpmEJ9AXx1UXfVhKU9xri4PdUZpPz0KJWYrNg4PJFKcALKtVZOzLCQ7CQIzDrGmQAxq FYZjNKMlBRD8XTTkWBFkQD6RZrTzUNSeIqYmEjGzCOBlKANjmk4OQLNuWOExEPwzIYZgQHFxSMIzYWfs MDDeMRJkMAX5MLGcMQPpAA4ARgMbIQKiSKA2SfPmCG BlBWGpoa9HIIYvBFFiQcz7UQRfJGZjATTzXZmdBKEhJGF0SYr7JWGxBSKjKA7CLiSzWLChRFC2DXhmXW OzXZWacd3NUMDrOBKcDdl8RTXsDTHyXNQbUKsmZKYfYBG6HXE6LWNdJGHqXQ3OAaBuIPIfENwgVcQsUT EgJPAyiw9HNSDkVJIeSKM4NINhTZBeEIEaLTmiKMPp PQT5Euf6IPPpOHJjNP7YUeLbLSMxVCa7JPKpSCChOFAfym5TPHPnVKReNArvHHTiUBGqDSRtGYzrHALz EOSpCdT2HKBrICVsQH2NWvTiVALqDnR9SPesKXIoJWUphf4PNDReVBUhZPU6TSBhTCFbSLWzVFylVRYg YVHpKLG6QCCzQRXhCR3PInEzFKRnFrP4IMvxINIkSH Zfxz5VMYZfMCWrVml5KiVbATLiTNYnFUwwDJCkSCWgFSS2GCBuJDTdCE0BOaKeXGKdQpF3BnWtEFEuFE Ffvx8JAAKiKZPdLQJqPUMhSKDjFXVgDUisWDZjLCH7QGr8BDOcNWInZT4EAdTpMRPxQcHcTeHrRJCcCI Hebk5OoPKatKkwzv8SESlJMn8VtPjzKTW3LWkcJb2m yEWdTbOjMEZHPe4PruZvFHRjDHBXCVypHQNbHXHcNpOiEEQhGYBaMWNvCTdrJQYxVSRpLJMeDeqwYQLu TuF1ARA8GMSnJEEnJmH1YREqI1I2FwGlKwF3VGK1H4XnKXO+UR7pKVw+Pv4Fz3UoubO2vwVhZDrdATB8 TP5KKRHZE8QMWt== ID Date Data Source [id number] 04/12/2021 08:40:00 AM EDT [facility] 1 OrderSheet [facility] Emergency Department [address] [place] [address] Phone #: ext- [phone] 04/12/2021 08:39 Patient: MILAN AZEVEDO Sex: F : 1980 Age: 40yWEIGHT:81.6 kg (S) HEIGHT:63 inches (S) BMI:31.9ALLERGIES: No Known Drug AllergyCHIEF COMPLAINT: pain, in:, Lt, pain, trouble walking, hipsDIAGNOSIS: Sciatica, Pain in lower limbLAB ORDERSOrder Description Priority Entered Acknowledged InitialedDIAGNOSTIC STUDY ORDERSOrder Description Priority Entered Acknowledged InitialedSpine Lumbar STAT 09:33 04/12/2021 09:34 TerryCompJc Hooker RN(Oxygen?(No)) ; Reason for Study: Lower Back Pain, Lower Extremity TinglingMEDICATION /IV/DRIP/FLUID ORDERSOrder Description Priority Entered Acknowledged InitialedToradol IM 30 mg 09:33 04/12/2021 09:38 Levy(NOW) Jc Arroyo RN ;GENERAL ORDERSOrder Description Priority Entered Acknowledged Initialed[Electronically signed by Levy Smith RN (11:04 04/12/2021)][Electronically signed by Jc Arroyo (02:44 04/13/2021)][Electronically locked by Levy Smith RN (11:04 04/12/2021)] Name Value Range Interpretation Code Description Data Catherine rce(s) Supporting Document(s) ID Date Data Source [id number] 04/12/2021 08:40:00 AM EDT [facility] 1 Medication Reconciliation Report [facility] Emergency Department [address] [place] [address] Phone #: ext [phone] 04/12/2021 08:39 Patient: MILAN AZEVEDO Sex: F : 1980 Age: 40yWeight: 81.6 kgHeight/Length: 63 in.BMI: 31.9ALLERGIES: No Known Drug AllergyThe patient's Home Medications are listed below:STOP TAKING THE FOLLOWING MEDICATIONS: Diflucan Oral tiZANidine HCl Oral 1 tab , 2x a dayThe source(s) of the original Home Medication information:Not obtained.The following Medications were given to the patient in the Emergency Department:Toradol [IM] IM 30 mg, administered: 09:38 04/12/2021The following Medications were prescribed to the patient:IBU 800 mg tablet Take 1 tablet three times a day for 7 days -- with food. Dispense 21 tablet. Refills: 0.Substitution permitted.Pharmacy - [facility] - [address] [facility] ; [place], [place] [phone]. FaxNumber: .cyclobenzaprine 10 mg tablet Take 1 tablet three times a day for 7 days -- Dispense 21 tablet. Refills:0. Substitution permitted.[facility] [address] [place] [phone]. .Percocet 5 mg-325 mg tablet Take 1 tablet four times a day as needed for pain for 3 days -- Lvpjwqgp49 tablet. Refills: 0. Substitution permitted.[facility] #[address] [phone]. . -- Jc Arroyo Name Value Range Interpretation Code Description Data Catherine rce(s) Supporting Document(s) ID Date Data Source [id number] 04/12/2021 08:40:00 AM EDT [place] [address] Medication Administration Record [facility] Emergency Department [address] [place] [address] Phone #: ext- [phone] 04/12/2021 08:39 Patient: MILAN AZEVEDO Sex: F : 1980 Age: 40yWeight: 81.6 kgHeight/Length: 63 inBMI: 31.9ALLERGIES: No Known Drug Allergy Date/Time Medication Administered Medication OrderedGiven TORADOL [IM] (KETOROLAC Toradol IM 30 mg (NOW)09:38 04/12/2021 TROMETHAMINE)Levy Smith RN Dose: 30 mg IM Name Value Range Interpretation Code Description Data Catherine rce(s) Supporting Document(s) ID Date Data Source [id number] 04/12/2021 08:40:00 AM EDT [facility] 1 General Instructions [facility] Emergency Department [address] [place] [address] Phone #: ext- [phone] 04/12/2021 08:39 Patient: MILAN AZEVEDO Sex: F : 1980 Age: 40yLeft hip pain.Acute left sided sciatica with low back pain.INSTRUCTIONS(take the motrin as well as the flexeril as prescribed . follow up with your orthopedic doctor this week.).Your Current Medications: Your current home medications have been reviewed.STOP TAKING THE FOLLOWING MEDICATIONS:Diflucan Oral.tiZANidine HCl Oral : 1 tab 2x a day.Prescription Medications:IBU 800 mg tablet Take 1 tablet three times a day for 7 days -- with food. Dispense 21 tablet. Refills: 0.Substitution permitted.[facility] [place] [address]. .cyclobenzaprine 10 mg tablet Take 1 tablet three times a day for 7 days -- Dispense 21 tablet. Refills:0. Substitution permitted.[facility] [place] [address]. .Percocet 5 mg-325 mg tablet Take 1 tablet four times a day as needed for pain for 3 days -- Zewdhxdj57 tablet. Refills: 0. Substitution permitted.[facility] [place] [address]. .Follow-up:Follow up with your healthcare provider in three days. Reason for referral: evaluation. Summary of careprovided to patient via paper. Follow up with an orthopedic surgeon- as recommended by your healthcare provider- in three. Reason for referral: evaluation. Summary of care provided to patient via paper.Screening today revealed the patient's blood pressure to be in the hypertensive stage 2 range. The patientshould follow up with a primary care provider for blood pressure management. ADDITIONAL INFORMATION 2 General Instructions [facility] Emergency Department [address] [place] [address] Phone #: ext- [phone] 04/12/2021 08:39 [id number] Sex[facility] : 1980 Age: 40yOsteoarthritisOsteoarthritis happens when the cartilage in a joint becomes damaged and worn. This may be fromage, wear and tear, overuse of the joint, obesity, or other problems. Osteoarthritis can affect any joint.But it's most common in hands, knees, spine, hips, and feet. Symptoms include joint stiffness, andpain. It's also called degenerative joint disease.Home care When a joint is more sore than usual, rest it for a day or two. Heat can help relieve sti ffness. Take a hot bath or apply a heating pad for up to 30 minutes at a time. If symptoms are worse in the morning, using heat just after awakening can help relax the muscle and soothe the joints. Ice helps relieve pain. It's often used after activity. Use a cold pack wrapped in a thin cloth on the joint for 10 to 15 minutes at a time. Alternating hot and cold can also help relieve pain. Try this for 20 minutes at a time, several times per day. Exercise helps prevent the muscles and ligaments around the joint from becoming weak. It also helps maintain function in the joint. Be as active as you can. Talk to your healthcare provider about what activity program is best for you. Excess weight puts a lot of extra strain on weight-bearing joints of the lower back, hips, knees, feet and ankles. If you are overweight, talk to your healthcare provider about a safe and effective weight loss program. Use anti-inflammatory medicines as prescribed for pain. This includes acetaminophen or NSAIDs such as ibuprofen or naproxen. Don't take NSAIDs if your healthcare provider has told you that you can't take NSAIDS because of other health problems If needed, topical or injected medicines may be recommended. Talk with your healthcare provider if these options are not enough to manage your pain. Follow the directions on all mfvj-zfh-babhhfv medicines. Talk with your healthcare provider about devices that might help improve your function and reduce pain. Talk with you healthcare provider about physical therapy to help strengthen your joints and the surrounding muscles.Follow-up careFollow up with your healthcare provider, or as advised. 3 General Instructions [facility] Emergency Department [address] [place] [address] Phone #: ext- [phone] 04/12/2021 08:39 Patient: MILAN AZEVEDO Sex: F : 1980 Age: 40yWhen to seek medical adviceCall your healthcare provider right away if any of these occur: Redness or swelling of a painful joint Discharge or pus from a painful joint Fever of 100.4F (38C) or higher, or as directed by your healthcare provider Worsening joint pain Decreased ability to move the joint or bear weight on the joint 5840-9024 [employer]. [address] [place] [address]. All rights reserved. This information is not intended as asubstitute for professional medical care. Always follow your healthcare professional's instructions.SciaticaSciatica is a condition that causes pain in the lower back that spreads down into the buttock, hip, andleg. Sometimes the leg pain can happen without any back pain. Sciatica happens when a spinalnerve is irritated or has pressure put on it as it comes out of the spinal canal in the lower back. Thismost often happens when a bulge or rupture of a nearby spinal disk presses on the nerve. Sciaticacan also be caused by a narrowing of the spinal canal (spinal stenosis) or spasm of the muscle in thebuttocks that the sciatic nerve passes through (piriformis muscle). Sciatica may also be called lumbarradiculopathy. 4 General Instructions [facility] Emergency Department [address] [place] [address] Phone #: ext- [phone] 08:39 Patient: MILAN AZEVEDO Sex: F : 1980 Age: 40ySciatica may start after a sudden twisting or bending force, such as in a car accident. Or it canhappen after a simple awkward movement. In either case, muscle spasm often also happens. Musclespasm makes the pain worse.A healthcare provider makes a diagnosis of sciatica from your symptoms and a physical exam.Unless you had an injury from a car accident or fall, you usually won't have X-rays taken at this time.This is because the nerves and disks in your back can't be seen on an X-ray. If the provider seessigns of a compressed nerve, you will need to schedule an MRI scan. Nerve conductions studies andelectromyography are nerve tests that can also help find the cause of nerve pain. Signs of acompressed nerve include loss of strength in a leg.Most sciatica gets better with medicine, exercise, and physical therapy. If your symptoms continueafter medical treatment, you may need surgery or injections to your lower back, depending on howsevere your symptoms are.Home careFollow these tips when caring for yourself at home: As soon as possible, start sitting up or walking. This will help you prevent problems that come from staying in bed for long periods. When in bed, try to find a position that is comfortable. A firm mattress is best. Try lying flat on your back with pillows under your knees. You can also try lying on your side with your knees bent up toward your chest and a pillow between your knees. Don't sit for long periods. This puts more stress on your lower back than standing or walking. Use heat from a hot shower, hot bath, or heating pad to help ease pain. Massage can also help. You can also try using an ice pack. You can make your own ice pack by putting ice cubes in a plastic bag. Wrap the bag in a thin towel. Try both heat and cold to see which works best. Use the method that feels best for 20 minutes several times a day. You may use acetaminophen or ibuprofen to ease pain, unless another pain medicine was prescribed. Note: If you have chronic liver or kidney disease, talk with your healthcare provider before taking these medicines. Also talk with your provider if you've had a stomach ulcer or gastrointestinal bleeding. Use safe lifting methods. Don't lift anything heavier than 15 pounds until all of the pain is gone.Follow-up careFollow up with your healthcare provider, or as advised. You may need physical therapy or more tests. 5 General Instructions [facility] Emergency Department [address] [place] [address] Phone #: ext- [phone] 04/12/2021 08:39 Patient: MILAN AZEVEDO Sex: F : 1980 Age: 40yIf X-rays were taken, a radiologist will look at them. You will be told of any new findings that mayaffect your care.When to seek medical adviceCall your healthcare provider right away if any of these occur: Pain gets worse even after taking prescribed medicine Weakness or numbness in 1 or both legs or hips Numbness in your groin or genital area You can't control your bowel or bladder Fever (100.4 F or 38 C) Redness or swelling over your back or spine 3181-7547 [employer]. [address] [place] [address], [place] [address]. All rights reserved. This information is not intended as asubstitute for professional medical care. Always follow your healthcare professional's instructions. You have been given the following additional information: Osteoarthritis Sciatica(Electronically signed by Jc Arroyo 04/13/2021 02:44) Name Value Range Interpretation Code Description Data Catherine rce(s) Supporting Document(s) ID Date Data Source [id number] 04/12/2021 08:40:00 AM EDT [facility] 1 Clinical Report - Nurses [facility] Emergency Department [address] [place] [address] Phone #: ext- [phone] 04/12/2021 08:39 Patient: MILAN AZEVEDO Sex: F : 1980 Age: 40yTRIAGEArrived by private vehicle. Historian: patient. ( pt has hx problems with both hips 4 days ago startedwith sharp pain in left hip with muscle relaxant not helping).Triage time: 09:09 04/12/2021. Acuity: LEVEL 4.Chief Complaint: LEFT LOWER EXTREMITY PAIN. Location of symptoms- left hip.09:21 04/12/21.No injury occurred. Onset. (4 days ago). She has had trouble walking. Has had no swelling or redness.No fever, difficulty breathing, skin rash, itching or weakness.Treatment HAND II CUTTER:(tizanadine).SEPSIS SCREEN: SIRS SCREEN NEGATIVE. SEPSIS SCREEN NEGATIVE. No suspected or confirmedsigns of infection present. (09:20 04/12/2021). --09:04/12/21 Levy Smith RN09:14 04/12/21. BP: 163/105. MAP: 124. HR: 88. RR: 20. O2 saturation: 96% on room air. Temp: 97.6 F(oral). Pain level now: 10/10. Describes the quality as sharp. --09:04/12/21 Levy Smith RN.Weight: 81.6 kg stated. Height/Length: 63 inches Per Patient. BMI: 31.9. --09:13 04/12/21 Levy Smith RN.MedicationstiZANidine HCl Oral 1 tab , 2x a day. --09:18 04/12/21 Levy Smith RN Diflucan Oral. --09:18 04/12/21 Levy Smith RN.AllergiesNo Known Drug Allergy. --09:17 04/12/21 Levy Smith RN.Tdkbxeo76:04/12/21.PAST MEDICAL HX: No history of diabetes mellitus, hypertension or heart disease. No history of deepvein thrombosis, infections or peripheral neuropathy. Last normal menstrual period- Mar 29.SOCIAL HX: Never smoker. Alcohol use. (social). No drug use. She was offered HIV testing butdeclined and hepatitis C testing but declined. She has not traveled outside the [place]Infectious disease exposure: No infectious disease exposure.SELF HARM ASSESSMENT: Self harm assessment was performed. The patient answered "no" to the 2 Clinical Report - Nurses [facility] Emergency Department [address] [place] [address] Phone #: ext- [phone] 04/12/2021 08:39 Patient: MILAN AZEVEDO Sex: F : 1980 Age: 40y question(s) "Have you recently felt down, depressed, or hopeless?", "Do you have thoughts of harming or killing yourself?", "Do you have a plan for harming or killing yourself?", "Have you recently had thoughts about harming or killing others?", "Do you have any dangerous items in your possession?", "Have you noticed less interest or pleasure in doing things?", "Are you here because you tried to hurt yourself?" and "Have you ever tried to hurt yourself before today?". ABUSE ASSESSMENT: Abuse history: reports abuse. (no). Abuse assessment. No suspicion of abuse. NUTRITIONAL RISK ASSESSMENT: The nutritional risk assessment revealed no deficiencies. FUNCTIONAL ASSESSMENT: Functional assessment: no impairments noted. LEARNING NEEDS ASSESSMENT: The learning needs assessment revealed no barriers. FALL RISK ASSESSMENT: Fall risk assessment completed. No risk factors identified. SKIN INTEGRITY ASSESSMENT: Skin integrity risk assessment completed. No skin integrity risk identified. --09:21 04/12/21 Levy Smith RN. Interventions 09:04/12/21. Identification band on patient. To room. --09:04/12/21 Levy Smith RN.PHYSICAL LCCCIQDLVU31:04/12/21. To room via wheelchair.GENERAL / NEURO / PSYCH: Oriented X 4. Alert. Appears in no acute distress.EXTREMITIES: Left hip: tenderness.SKIN: Skin is warm and dry. --09:04/12/21 Levy Smith RN.NURSING PROGRESS NOTESPatient gowned. Two patient identifiers checked. Call light placed in reach. Bed placed in lowestposition. Brakes of bed on. Patient ready for evaluation- ED physician notified. --09:04/12/21 WAYLON Ferreira 09:38 04/12/2021 Toradol (Ketorolac Tromethamine) IM 30 mg given. Given in the left ventral gluteus. Allergies verified and confirmed 5 rights. Information reviewed with patient. --09:04/12/21 Levy Smith RN 10:04/12/2021 Toradol IM Response: symptoms have improved the patient feels better. --10:17 04/12/21 Levy Smith RN 10:04/12/21. BP: 155/90. MAP: 111. HR: 69. RR: 18. O2 saturation: 99% on room air. Pain level now: 02/04. --10:04/12/21 Levy Smith RN.DISPOSITION / DISCHARGE 3 Clinical Report - Nurses [facility] Emergency Department [address] [place] [address] Phone #: ext- [phone] 04/12/2021 08:39 [id number] Sex[facility] F : 1980 Age: 40y 10:45 04/12/21. Departure time: 10:45 04/12/2021. Condition at departure: improved. No learning barriers present. Discharge instructions provided and reviewed with the patient. Reviewed medication(s) side effects, precautions, dosing and course information. Prescription(s) sent electronically to pharmacy. Reviewed rest instructions. Reviewed referrals. Provided to follow-up provider. Patient verbalized understanding. Written instructions provided in Swazi. The patient was discharged by the physician. She was discharged home. She left ambulatory and via private vehicle. Patient driving. --10:53 04/12/21 Levy Smith RN 10:35 04/12/21. BP: 150/89. MAP: 109. HR: 70. RR: 18. O2 saturation: 99% on room air. Temp: 97.1 F. Pain level now: 02/04. --10:53 04/12/21 Levy Smith RN.Locked/Released at 04/12/2021 11:04 by Levy Smith RN Name Value Range Interpretation Code Description Data Catherine rce(s) Supporting Document(s) ID Date Data Source [id number] 04/12/2021 08:40:00 AM EDT [facility] 1 Clinical Report - Physicians/Mid Levels [facility] Emergency Department [address] [place] [address] Phone #: ext- [phone] 04/12/2021 08:39 [id number] Sex[facility] F : 1980 Age: 40y Time Seen: 09:17 04/12/2021; initial patient contact, initial documentation. Arrived- By private vehicle. Historian- patient. Disposition decision: 10:35 04/12/2021.HISTORY OF PRESENT ILLNESS Chief Complaint: LOWER EXTREMITY PAIN and TROUBLE WALKING; PAIN IN THE LEFT HIP. Severity is described as being severe. The quality is noted to be dull and aching. It is described as radiating to the left buttocks and left thigh. This started 4 days ago and is still present (persistent). It was gradual in onset and has been constant. Not relieved by anything- worsened by walking. Symptoms located in the area of the left hip. The patient has not had redness. No swelling, bladder dysfunction, bowel dysfunction, sensory loss or motor loss. She has had difficulty walking. ( bello fournier has chronic left hip pain and has been seen by orthopedics 2 weeks ago and was placed on physical therapy. she states that she was gett). Patient denies an injury.REVIEW OF SYSTEMSNo cough, chest pain, difficulty breathing, fever or skin rash. No enlarged lymph nodes, neck pain,headache, blurred vision or sore throat. No abdominal pain, vomiting, diarrhea or black stools. Thepatient has had back pain. All other systems reviewed and are negative.PAST HISTORYSee nurses notes. Problems: Lower Extremity Pain. Arthritis. (Left hip) Pelvic Pain. Additional Surgeries: Appendectomy. . Hip Surgery. Medications: Diflucan Oral. tiZANidine HCl Oral 1 tab , 2x a day. Allergies: No Known Drug Allergy.SOCIAL HISTORYNever smoker. Occasional alcohol use. No drug use. 2 Clinical Report - Physicians/Mid Levels [facility] Emergency Department [address] [place] [address] Phone #: ext- [phone] 04/12/2021 08:39 Patient: MILAN AZEVEDO Sex: F : 1980 Age: 40yADDITIONAL NOTESThe nursing notes have been reviewed.PHYSICAL EXAMVital Signs: 04/12/2021 10:17 BP: 155/90. MAP: 111. HR: 69. RR: 18. O2 saturation: 99% on room air.Pain level now: 02/04.04/12/2021 09:14 BP: 163/105. MAP: 124. HR: 88. RR: 20. O2 saturation: 96% on room air. Temp: 97.6 F.Pain level now: 06/06. Have been reviewed. Hypertensive. Oxygen saturation normal.Appearance: Alert. Oriented X3. Patient in moderate distress.Eyes: Pupils equal, round and reactive to light. Eyes normal inspection.Neck: Normal inspection. Neck supple.CVS: Normal heart rate and rhythm. Heart sounds normal.Respiratory: No respiratory distress. Painless inspiration. Breath sounds normal.Abdomen: Soft and nontender. No organomegaly.Back: Normal inspection. Mild vertebral tenderness over the lower lumbar spine. Moderate soft tissuetenderness in the left lower lumbar paraspinous region. No CVA tenderness.Skin: Skin intact. Skin warm and dry. Normal skin color. Normal skin turgor.Extremities: No lower extremity edema. No signs of infection involving the lower extremities. No lowerextremity edema. No calf tenderness. Extremities otherwise negative.Gait: The patient was unable to bear weight. Gait not tested due to pain.Neuro, Vascular and Tendons: No pulse deficit present. Lower extremity capillary refill not prolonged.Neuro: Oriented X 3. No motor deficit. No sensory deficit. Reflexes normal. (positive straight leg teston the left at 45 degree).LABS, X-RAYS, AND EKGLaboratory Tests: Spine Lumbar Complete: (KELLIE: 04/12/2021 09:33) ( MsgRcvd 04/12/2021 10:08) In Progress Exam SPINE LS COMPLETE [facility] [address] [place] [address] PHONE: [phone] FAX: [phone] Name .................. : JOLLY Kathleen Acct Number.................. : [id number] ROOM. ................. : TR-04 Number ................... : [id number] Stay type ............. : E/R Discharge Date......... ... : Admit Date ......... : 04/12/21 Admit Phys .................... : CRYS Date of ....... : 1980 Family Phys ................... : NEERU PICKETT Phone .................. : [phone] Age ................................ : 40 Film# .................. .:[id number] Sex ................................. : F Unsigned transcriptions are preliminary reports and do not represent a medical or legal document SPINE LS COMPLETE [id number] COMPLETE:04/12/21 09:33 [id number] Reason(s): Lower Back Pain Lower Extremity Tingling 3 Clinical Report - Physicians/Mid Levels [facility] Emergency Department [address] [place] [address] Phone #: ext- [phone] 04/12/2021 08:39 Patient: MILAN AZEVEDO Sex: F : 1980 Age: 40y LUMBOSACRAL SPINE 5 VIEWS. INDICATION: Lower back pain COMPARISON: None. FINDINGS: The vertebral bodies are normal height. No fracture or destructive bone lesion. Mild lower thoracic degenerative endplate changes. Normal disc space height. Minimal lumbar osteophytic changes at L3-4 No pars defect. No listhesis. IMPRESSION: Very minimal degenerative changes. Electronically Reviewed and Signed By DCTNAME , SIGNDATE, PAUB Transcribe Initials: DENNIS, Transcribe Date: 04/12/21 10:08, Dictation Date: <<REPDIST>> Page 1 of 1.PROGRESS AND PROCEDURESCourse of Care: 10:31 04/12/21. Patient given toradol for pain. 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 Patient is able to stand now and [place] is down to 6 fro 10. she does not want any narcotic as she is driving. will discharge her home with Flexeril as well as Motrin 800 mg. Patient counseled in person regarding the patient's stable condition, test results, diagnosis and need for follow-up. Patient agrees with plan of care. 10:35. Disposition: Discharged home in good and improved condition (10:35). Condition: good and stable.CLINICAL IMPRESSION Left hip pain. Acute left sided sciatica with low back pain. 4 Clinical Report - Physicians/Mid Levels [facility] Emergency Department [address] [place] [address] Phone #: ext- [phone] 04/12/2021 08:39 Patient: MILAN AZEVEDO Sex: F : 1980 Age: 40yINSTRUCTIONS (take the motrin as well as the flexeril as prescribed . follow up with your orthopedic doctor this week.). Your Current Medications: Your current home medications have been reviewed. STOP TAKING THE FOLLOWING MEDICATIO NS: Diflucan Oral. tiZANidine HCl Oral : 1 tab 2x a day. Prescription Medications: IBU 800 mg tablet Take 1 tablet three times a day for 7 days -- with food. Dispense 21 tablet. Refills: 0. Substitution permitted. [facility] [phone]. . cyclobenzaprine 10 mg tablet Take 1 tablet three times a day for 7 days -- Dispense 21 tablet. Refills: 0. Substitution permitted. [facility] - [address] [place], [place] [id number]. . Percocet 5 mg-325 mg tablet Take 1 tablet four times a day as needed for pain for 3 days -- Dispense 12 tablet. Refills: 0. Substitution permitted. Pharmacy - [facility] - [address] [facility] ; [place], [place] [phone]. . Follow-up: Follow up with your healthcare provider in three days. Reason for referral: evaluation. Summary of care provided to patient via paper. Follow up with an orthopedic surgeon- as recommended by your health care provider- in three. Reason for referral: evaluation. Summary of care provided to patient via paper. Screening today revealed the patient's blood pressure to be in the hypertensive stage 2 range. The patient should follow up with a primary care provider for blood pressure management.(Electronically signed by Jc Arroyo 04/13/2021 02:44) Name Value Range Interpretation Code Description Data Catherine rce(s) Supporting Document(s) ID Date Data Source [id number] 04/12/2021 10:48:00 [place] [address] PHONE: [phone] FAX: [phone] Name .................. : JOLLY Kathleen Acct Number.................. : [id number] ROOM. ................. : TR-04 Number ................... : [id number] Stay type ............. : E/R Discharge Date......... ... : Admit Date ......... : 04/12/21 Admit Phys .................... : CRYS Date of ....... : 1980 Family Phys ................... : NEERU PICKETT Phone .................. : [phone] Age ................................ : 40 Film# .................. .:[id number] Sex ................................. : F Unsigned transcriptions are preliminary reports and do not represent a medical or legal document SPINE LS COMPLETE [id number] COMPLETE:04/12/21 09:33 29831 Reason(s): Lower Back Pain LUMBOSACRAL SPINE 5 VIEWS. INDICATION: Lower back pain COMPARISON: None. FINDINGS: The vertebral bodies are normal height. No fracture or destructive bone lesion. Mild lower thoracic degenerative endplate changes. Normal disc space height. Minimal lumbar osteophytic changes at L3-4 No pars defect. No listhesis. IMPRESSION: Very minimal degenerative changes. Electronically Reviewed and Signed By Thomas oMnson MD , 04/12/21 22:48, RIB Transcribe Initials: SSR, Transcribe Date: 04/12/21 10:08, Dictation Date: Copy for: EMERGENCY DEPT via [facility] Copy for: 710 MED REC DISCHARGED Page 1 of 1 Name Value Range Interpretation Code Description Data Catherine rce(s) Supporting Document(s) ID Date Data Source [id number] 03/25/2021 07:55:23 AM EDT [facility] Name Value Range Interpretation Code Description Data Catherine rce(s) Supporting Document(s) Progress Note [facility] VMQCWf1aEcJWDxBp57/HCIhgYOVbc1SfGIydUVp3NXlyLVWcY7XhQOS8tM9nCKG6VDcDMpAfRsMzQtA3 [facility] [file] A1RhPi/2YmRU3Nort57j88RM1fKK36zCYFbX/Rj whof6QWX7dEe0THaWR13pH6eGO+qiY7RdA2du/3z3heLkr5Yuh9oDNJyoy2w8pRsDZO66+ctfBuowBGy ApqtdisYEmxrS/aHu+C61/NK6tyWfDZBxoiiYnHBQdtAraUN3m8ZE1RfOBGhPg0PKVCeppGk7CoU1WTa OETQxANSkOpath853VUYdPDorzbplUyfkJpECu5IPs ixNiourDkg034Be4Wd7zt2+lcd+TeYohq6gY202pZheOWeep4zjim+ifWH/xTIZN+P821AGVqxMm/Joelle [file] AgICAgICAgICAgICAgICAgICAgICAgICAgICAgICAg ICAgICAgICAgICAgICAgICAgICAgICAgICAgICAgICAgICAgICAgICAgICAgICAgICAgICAgICAgICAg ICAgICANCiAgICAgICAgICAgICAgICAgICAgICAgICAgICAgICAgICAgICAgICAgICAgICAgICAgICAg ICAgICAgICAgICAgICAgICAgICAgICAgICAgICAgIC AgICAgICAgICAgICAgICANCiAgICAgICAgICAgICAgICAgICAgICAgICAgICAgICAgICAgICAgICAgIC AgICAgICAgICAgICAgICAgICAgICAgICAgICAgICAgICAgICAgICAgICAgICAgICAgICAgICAgICANCi AgICAgICAgICAgICAgICAgICAgICAgICAgICAgICAg ICAgICAgICAgICAgICAgICAgICAgICAgICAgICAgICAgICAgICAgICAgICAgICAgICAgICAgICAgICAg ICAgICAgICANCiAgICAgICAgICAgICAgICAgICAgICAgICAgICAgICAgICAgICAgICAgICAgICAgICAg ICAgICAgICAgICAgICAgICAgICAgICAgICAgICAgIC AgICAgICAgICAgICAgICAgICANCiAgICAgICAgICAgICAgICAgICAgICAgICAgICAgICAgICAgICAgIC AgICAgICAgICAgICAgICAgICAgICAgICAgICAgICAgICAgICAgICAgICAgICAgICAgICAgICAgICAgIC ANCiAgICAgICAgICAgICAgICAgICAgICAgICAgICAg ICAgICAgICAgICAgICAgICAgICAgICAgICAgICAgICAgICAgICAgICAgICAgICAgICAgICAgICAgICAg ICAgICAgICAgICANCiAgICAgICAgICAgICAgICAgICAgICAgICAgICAgICAgICAgICAgICAgICAgICAg ICAgICAgICAgICAgICAgICAgICAgICAgICAgICAgIC AgICAgICAgICAgICAgICAgICAgICANCiAgICAgICAgICAgICAgICAgICAgICAgICAgICAgICAgICAgIC AgICAgICAgICAgICAgICAgICAgICAgICAgICAgICAgICAgICAgICAgICAgICAgICAgICAgICAgICAgIC AgICANCiAgICAgICAgICAgICAgICAgICAgICAgICAg ICAgICAgICAgICAgICAgICAgICAgICAgICAgICAgICAgICAgICAgICAgICAgICAgICAgICAgICAgICAg ICAgICAgICAgICAgICANCjw/kMSdZ6bjhYLzgxE2N2nyAl3VBz4OQL9az7VhDHKyRAsgnwUvDxmVPxRq IUKiUnxAThw1IXzwXQ2IkNLhN9HoE3KiHSfqWV5EBB EwYOFlpEMkSMQdJGSlSeD1USBkXSbjHW0TpVEtHCsmFTIeIVHiWjShJLPhYQNvZELfOO9LSYRjM001pf PnOk7PRv1KDvIiRG8ujj7LGrPpEEAzFncZKwg0WMepWG3ZpRGcvAFmCkYcACAMRgWyE1fda6FaDtUlVX KSFKnzOZ4Yj8BypXVuJIv+Jv4WIR3ct9ZdVWopUxFi EA3jsm2MAQjNRnLmJ1YrcYkeLXPqy6caKUPaAT8suBZpSND8NNY1PT1bDZXUx40lc8ulpRuwALOrWZIr Ct7lWo2cDPVoBYVaMoWuLIKKHJ9TFHGzHAFgyJPiVUFsEHKZDQ2MYCstRNB8YPAvilEdsDSzAQwySI2U YXJlbnQgMzIgMCBSDQo+Kt0EKL4js5TpIKzmQYHzAD 0gsx8MXQrVQtNiY1W1zPYuV5G7ONfkHe2KYRKiRORxQvNwCLMNPDcwVO5NWL9nvwH0EF4BlFVqEGZkLO EptMMnQSy8N66ynNUcPWhwYT6TURI+Jordan+Fg0ALLWkLUKlJAPyOvRuKSAHWbJqV6UaC2FWx1GdY1ViSU 48vXgfbeQtYNbyWP4IRS1oSXZxYYOHEC6NoYTisU6x ljJmKvCaQPMLDvSvU47bpSCcZLXgBYFdJJJzDv3MRKSaM2HeuiLpuEitczDcNKBhGFQNOE7TDYiayfJc zACgdUfrON97yPzfVU6TVt1KDtNuCU8wpw1WmVQwKp9CQJArIZ9ISGAsNUXiYZIzXCP8BYCmZxAsHJfn FMGfQODkJFK7PKZbAGGjPP2XPcDcTZLaRGV5XbOwVH QgVEDvyk3IJAYzXZK7GeD4BAMsJICpYJGoAUksTFPmSZGvVRK2MJJdMAIgCI5FLwYkZLCqVWAiHQGvKC WxIKUypr7HLYIcZOYjEMN5UQZjBOQeHMBeHCfsVVAkRLN0BnO7SBLlJWPtER5ZTpWbDJGoXPm2HWCxPR MxOBUmip3JCAWfWDQpGXUuECXnIXGmYVFeYMzmJGPv OWX9VrD8YELaAKGvIX9DLnJrLBMmOAJ2HCycBHKtYSTzud9NUSGqISLwPYy2ZMYpLRSaWFShDKbhVDFe WQYgXIY1OUHpKZCaQK6RAlGlUFGcZXSfYfroHADgZOSlah3NJGFkBPOkXcFfHBAbCBJvDUAcNSdkFCQt RQSgQBN1RNGhALJnFN0OWaJhDHKpMRLxCuRvPGBmXF Jhuh8CSVPeKGY8IOcaBpTwDFGkOXUoSPdsVUKuFGWcZXHlDBYtVNEsVJ8XDzEsJBOuQQS7IrbvXQPfQR Qftj4EGCTqUAE9ZDk4KJTzLLFjKVUjBUmuDXFxTVCuRXM8JXVsPJKuPH4OFjUsTYZsOAUdTBXnFWShAV Bklg5CLYCxZPK9HcG0IDBzHGIkVOMwFGjzJFZyHPW8 DtA3TAYwBULqOS1UYgIbUIAsAMS0BMIvDWStIIRmop4KWYWwYTF0FHQ8RKQnIFSxUCVnQJntPNLlUYW0 TJP8SCIfHPYjLW0IJiEiWJEtNTH9GNvqHSLyFSFqdz1RRBMkBFQ4ZEjkTJPaRDDpOFUfSVkyLNFmMQU2 IdQ3HQInOQMlAW3JDyBcPGUpEPq3QMvxNWYuUYJrsh 1POMDsBRV7Gtu3XSNiXBOmIEWrHRgqULQbPVJ2IRNrEOMzCTUdMG8NQsOuSDjjIDCMQox3HXosU7b8HB OrKD4UY7Nut4ZsEaLdORPFVGqqZE5gbbMnLYFfIs5OA6gYWdvfNUNoBAP1CTChFDPpFjOmDhS7ROK7Nx E9UIUjOQElRS2wJXKfHIW8TrxdNvFuC5QpXLKtROk2 CUE0MVrzDyX5VTB4SmDpEY3TNp9XRyH2HYV5hRSkUj4RRLsyWxAIEjVeYK4CNKc= ID Date Data Source [id number] 03/04/2021 03:37:00 AM EDT [facility] 1 OrderSheet [facility] Emergency Department [address] [place] [address] Phone #: ext- [phone] 03/04/2021 03:35 Patient: MILAN AZEVEDO Sex: F : 1980 Age: 40yWEIGHT:77.1 kg HEIGHT:63 inches BMI:30.1ALLERGIES: No Known Drug AllergyCHIEF COMPLAINT: pain, Lt, hips, in:, painDIAGNOSIS: C/O pelvic pain, Pain in lower limbLAB ORDERSOrder Description Priority Entered Acknowledged InitialedDIAGNOSTIC STUDY ORDERSOrder Description Priority Entered Acknowledged InitialedMEDICATION/IV/DRIP/FLUID ORDERSOrder Description Priority Entered Acknowledged InitialedToradol IM 30 mg 04:03 03/04/2021 04:16 SorbMichelle wasserman Riccardo Frank R.N. M.D.;Ativan IM 2 mg 04:03 03/04/2021 04:16 Sorbero,(HIGH ALERT Katty Martinez RMinhNMinhMEDICATION) M.DMinh;Lidocaine Patch 04:03 03/04/2021 04:17 Sorbero,Topical (Patch 5 %) Katty Martinez R.N.1 Patch (On for 12 M.D.;hours, off for 12hours.)GENERAL ORDERSOrder Description Priority Entered Acknowledged Initialed[Electronically signed by Mala Hopkins (04:50 03/04/2021)][Electronically signed by Katty Martinez M.D. (06:42 03/04/2021)][Electronically locked by Mala Hopkins (04:50 03/04/2021)] Name Value Range Interpretation Code Description Data Catherine rce(s) Supporting Document(s) ID Date Data Source [id number] 03/04/2021 03:37:00 AM EDT [facility] 1 Medication Reconciliation Report [facility] Emergency Department [address] [place] [address] Phone #: ext- [phone] 03/04/2021 03:35 Patient: MILAN AZEVEDO Sex: F : 1980 Age: 40yWeight: 77.1 kgHeight/Length: 63 in.BMI: 30.1ALLERGIES: No Known Drug AllergyThe patient's Home Medications are listed below:CONTINUE TAKING THE FOLLOWING MEDICATIONS: Piroxicam OralThe source(s) of the original Home Medication information:Not obtained.The following Medications were given to the patient in the Emergency Department:Ativan [IM] IM 2 mg, administered: 04:03/04/2021Toradol [IM] IM 30 mg, administered: 04:03/04/2021idocaine Patch Transdermal 1 patch, administered: 04:03/04/2021The following Medications were prescribed to the patient:Lidoderm 5 % topical patch Apply 1 patch once a day for 7 days -- Take off after 12 hrs. Dispense 7patch. Refills: 0. Substitution permitted.Pharmacy - [facility] - [phone] [facility] ; [place], [place] [phone]. . -- Katty Martinez M.D. Name Value Range Interpretation Code Description Data Catherine rce(s) Supporting Document(s) ID Date Data Source [id number] 03/04/2021 03:37:00 AM EDT [facility] 1 Medication Administration Record [facility] Emergency Department [address] [place] [address] Phone #: ext- [phone] 03/04/2021 03:35 Patient: MILAN AZEVEDO Sex: F : 1980 Age: 40yWeight: 77.1 kgHeight/Length: 63 inBMI: 30.1ALLERGIES: No Known Drug Allergy Date/Time Medication Administered Medication OrderedGiven TORADOL [IM] (KETOROLAC Toradol IM 30 mg04:03/04/2021 TROMETHAMINE)Tim Alfonso R.N. Dose: 30 mg IMGiven ATIVAN [IM] (LORAZEPAM) Ativan IM 2 mg (HIGH ALERT04:16 03/04/2021 Dose: 2 mg IM MEDICATION)Tim Alfonso R.N.Given LIDOCAINE PATCH Lidocaine Patch Topical (Patch 504:16 03/04/2021 Dose: 1 patch Ointment Transdermal %) 1 Patch (On for 12 hours, offSTim guerrero R.N. for 12 hours.) Name Value Range Interpretation Code Description Data Catherine rce(s) Supporting Document(s) ID Date Data Source [id number] 03/04/2021 03:37:00 AM EDT [facility] 1 General Instructions [facility] Emergency Department [address] [place] [address] Phone #: ext- [phone] 03/04/2021 03:35 Patient: MILAN AZEVEDO Sex: F : 1980 Age: 40yChronic left hip pain.Chronic pelvic pain. (Left Anterior Iliac Spine).INSTRUCTIONSApply ice for 30 minutes four times a day for three days followed by moist heat 30 minutes four times a dayfor five days. Don't apply ice directly to skin, don't use while asleep and don't use high setting on heatingpad. No strenuous activity until better.(PLEASE FOLLOW UP WITH ORTHO ON BASE [facility]EE FOR FURTHER IMAGING SUCH MRI ANDTREATMENT SUCH PT).Warnings: Further evaluation is necessary. It is very important to follow up with a healthcare provider.GENERAL WARNINGS: Return or contact your physician immediately if your condition worsens orchanges unexpectedly, if not improving as expected, or if other problems arise. Specifically return if pain,vomiting, bleeding, breathing difficulty or fever greater than 102 degrees F and not controlled byacetaminophen or ibuprofen.Your Current Medications: Your current home medications have been reviewed.CONTINUE TAKING THE FOLLOWING MEDICATIONS:Piroxicam Oral.Prescription Medications:Lidoderm 5 % topical patch Apply 1 patch once a day for 7 days -- Take off after 12 hrs. Dispense 7patch. Refills: 0. Substitution permitted.Pharmacy - [facility] - [phone] [facility] ; [place], [place] [phone]. .Follow-up:Return to the emergency department as needed. Follow up with an orthopedic surgeon in two days evenif well. Call for an appointment. Reason for referral: evaluation and treatment. Summary of care provided topatient via paper.Understanding of the discharge instructions verbalized by patient. Expected course of injury, dischargeinstructions, activity level, diet, prescriptions x1, follow-up appointment and risks and benefits of treatmentreviewed with patient and understanding verbalized. Agrees to plan of care. ADDITIONAL INFORMATION 2 General Instructions [facility] Emergency Department [address] [place], [place] [address] Phone #: ext- [phone] 03/04/2021 03:35 Patient: MILAN AZEVEDO Sex: F : 1980 Age: 40yTendonitisA tendon is the thick fibrous cord that joins muscle to bone and allows joints to move. When a tendonbecomes inflamed, it is called tendonitis. This can occur from overuse, injury, or infection. Thisusually involves the shoulders, forearm, wrist, hands and feet. Symptoms include pain, swelling andtenderness to the touch. Moving the joint increases the pain.It takes 4 to 6 weeks or more for tendonitis to heal. It is treated by preventing motion of the tendon,occasionally with a splint or brace, and the use of anti-inflammatory medicine.Home care Some people find relief with ice packs. These can be crushed or cubed ice in a plastic bag or a bag of frozen vegetables wrapped in a thin towel. Other people get better relief with heat. This can include a hot shower, hot bath, or a moist towel warmed in a microwave. Try each and use the method that feels best, for 15 to 20 minutes several times a day. Rest the inflamed joint and protect it from movement. You may use gxbg-aoh-zuosrzl ibuprofen or naproxen to treat pain and inflammation, unless another medicine was prescribed. If you can't take these medicines, acetaminophen may help with the pain, but does not treat inflammation. If you have chronic liver or kidney disease or ever had a stomach ulcer or gastrointestinal bleeding, talk with your doctor before using these medicines. As your symptoms improve, begin gradual motion at the involved joint.Follow-up careFollow up with your healthcare provider if you are not improving after 5 to 7 days of treatment.When to seek medical adviceCall your healthcare provider right away if any of these occur: Redness over the painful area Increasing pain or swelling at the joint Fever lasting 24 to 48 hours or chills, or as advised by your healthcare provider [id number] [employer]. [address] [place] [address]. All rights reserved. This information is not intended as asubstitute for professional medical care. Always follow your healthcare professional's instructions.Pelvic Pain, Uncertain Cause 3 General Instructions [facility] Emergency Department [address] [place] [address] Phone #: ext- [phone] 03/04/2021 03:35 [id number] Sex[facility] F : 1980 Age: 40yPelvic pain is pain felt in the lowest part of the belly (abdomen) and between the hipbones. The painmay occur suddenly and recently (acute). Or the pain may last for 6 months or longer (chronic).There are many possible causes of pelvic pain. The pain may be due to a problem in the femalereproductive system. Or, it may be due to a problem in the digestive, urinary, or musculoskeletalsystems.Based on your visit today, the exact cause of your pelvic pain is not certain. Your condition does notappear to be serious at this time. But it is important for you to keep watching for any new symptomsor worsening of your condition.General careYour healthcare provider may advise a number of ways to help manage your pain. These can include: Taking fhiy-gcb-hltpusy pain medicine. Stronger pain medicine may also be prescribed, if needed. Applying heat to the pelvic area. Use a heating pad or a hot pack. Taking a hot bath may also help. Getting plenty of rest. Making certain lifestyle changes. These can include practicing good posture and getting regular exercise. Studies have shown that these changes help reduce pelvic pain in some women. Seeing a physical therapist or pain specialist. These healthcare providers can discuss other ways to manage pain with you. 4 General Instructions [facility] Emergency Department [address] [place] [address] Phone #: ext- [phone] 03/04/2021 03:35 Patient: MILAN AZEVEDO Sex: F : 1980 Age: 40yFollow-up careFollow up with your healthcare provider, or as advised.When to seek medical adviceCall your healthcare provider right away if any of the following occur: Fever of 100.4F or higher, or as directed by your healthcare provider Pain worsens or you have sudden, severe pain or new pain Nausea, vomiting, sweating, or restlessness Dizziness or fainting Unusual vaginal discharge Abnormal vaginal bleeding (especially bleeding after menopause) [phone] [employer]. [address] [place] [address], [place] [address]. All rights reserved. This information is not intended as asubstitute for professional medical care. Always follow your healthcare professional's instructions. You have been given the following additional information: Tendonitis Pelvic Pain, Unknown Cause No strenuous activity until better.(Electronically signed by Katty Martinez M.D. 03/04/2021 06:42) Name Value Range Interpretation Code Description Data Catherine rce(s) Supporting Document(s) ID Date Data Source [id number] 03/04/2021 03:37:00 AM EDT [facility] 1 Clinical Report - Nurses [facility] Emergency Department [address] [place] [address] Phone #: ext- [phone] 03/04/2021 03:35 Patient: MILAN AZEVEDO Sex: F : 1980 Age: 40yTRIAGEArrived by private vehicle. Historian: patient. Unaccompanied.Acuity: LEVEL 4.Chief Complaint: (HIP PAIN).Alert. No acute distress.This occurred (NOVEMBER). ( Patient states she has a history of reconstructive surgery to right hip a few yearsago. States she thinks the pain today is a compensation injury. States she has seen several providerssince November for same complaint.).Treatment HAND II CUTTER:(10mg Oxycodone-0215).SEPSIS SCREEN: SIRS SCREEN NEGATIVE: heart rate greater than 90. SEPSIS SCREEN NEGATIVE.No suspected or confirmed signs of infection present.HARDY COMA SCORE: 15- eyes open- spontaneous (4); best verbal response- oriented (5); bestmotor response- obeys commands (6). --03:41 03/04/21 Mala Hopkins03:35 03/04/21. BP: 188/110. HR: 105. RR: 16. O2 saturation: 100%. Temp: 95.5 F. Pain level now 04/06.--03:41 03/04/21 Mala Hopkins.Weight: 77.1 kg. Height/Length: 63 inches. BMI: 30.1. --03:35 03/04/21 Mala Hopkins.MedicationsPiroxicam Oral. --03:37 03/04/21 Mala Hopkins.AllergiesNo Known Drug Allergy. --03:38 03/04/21 Mala Hopkins.HistoryPAST MEDICAL HX: Last normal menstrual period- 1 weeks ago.SOCIAL HX: Never smoker. Occasional alcohol use. No drug use. Recent travel in the last four (4)weeks. She was offered HIV testing but declined. Patient education was provided. She was offeredhepatitis C testing but declined. Patient education was provided.Infectious disease exposure: (Moved from [place] February 19) Patient is not a known carrier oftuberculosis, hepatitis, HIV, MRSA or VRE. Patient is not a known carrier of CRE.SELF HARM ASSESSMENT: Self harm assessment was performed. The patient answered "no" to the 2 Clinical Report - Nurses [facility] Emergency Department [address] [place] [address] Phone #: ext- [phone] 03/04/2021 03:35 Patient: MILAN AZEVEDO Sex: F : 1980 Age: 40y question(s) "Have you recently felt down, depressed, or hopeless?" and "Do you have thoughts of harming or killing yourself?". ABUSE ASSESSMENT: Abuse assessment. The patient had positive responses to the question(s) "Do you feel safe in your home?" and "Are you afraid to go home?". Abuse denied. No suspicion of abuse. No report of abuse. NUTRITIONAL RISK ASSESSMENT: The nutritional risk assessment revealed no deficiencies. FUNCTIONAL ASSESSMENT: Functional assessment: no impairments noted. LEARNING NEEDS ASSESSMENT: The learning needs assessment revealed no barriers. FALL RISK ASSESSMENT: Fall risk assessment completed. No risk factors identified. SKIN INT EGRITY ASSESSMENT: Skin integrity risk assessment completed. No skin integrity risk identified. --03:41 03/04/21 Mala Hopkins. Interventions Identification band on patient. --03:41 03/04/21 Mala Hopkins.PHYSICAL ASSESSMENTAmbulatory to room.GENERAL / NEURO / PSYCH: Alert. Oriented X 4. Appears in no acute distress.HEENT: Pupils equal, round and reactive to light. Head non- tender.RESPIRATORY: Respirations not labored. Chest nontender. Breath sounds within normal limits.CVS: Normal heart rate and rhythm. Pulses within normal limits. Capillary refill less than 2 seconds.GI / : Abdomen soft and nonten mohan.EXTREMITIES: Extremities exhibit normal ROM. Neuro-vascular status intact to the extremity. Right hip:tenderness.SKIN: Skin intact. Skin is warm and dry. --03:42 03/04/21 Mala Hopkins.NURSING PROGRESS NOTESPatient gowned. Reassurance given. Two patient identifiers checked. Call light placed in reach. Siderails up x 2. Bed placed in lowest position. Brakes of bed on. --03:41 03/04/21 Mala Hopkins 04:16 03/04/2021 Ativan (LORazepam) IM 2 mg given. Given in the left deltoid. Allergies verified and confirmed 5 rights. Information reviewed with patient including reason for taking this medication, signs of allergic reaction, precautions and sedative warning. Verbalizes understanding. --04:16 03/04/21 Tim Alfonso R.N. 04:16 03/04/2021 Toradol (Ketorolac Tromethamine) IM 30 mg given. Given in the right deltoid. Allergies verified and confirmed 5 rights. Information reviewed with patient including reason for taking this medication, signs of allergic reaction and precautions. Verbalizes understanding. --04:16 03/04/21 Naty, 3 Clinical Report - Nurses [facility] Emergency Department [address] [place] [address] Phone #: ext- [phone] 03/04/2021 03:35 Patient: MILAN AZEVEDO Sex: F : 1980 Age: 40y Kim Dumont 04:16 03/04/2021 Lidocaine Patch Transdermal Ointment 1 patch given. Applied to the affected area. Information reviewed with patient including reason for taking this medication, signs of allergic reaction and precautions. Verbalizes understanding. (left hip). --04:17 03/04/21 Tim Alfonso R.N. 04:23 03/04/21. Reassurance given. Reassessment acuity: LEVEL 4. Reassessment after medication administered. No adverse reaction. Pain still present but improving. Overall patient status is improved- she states feels better. GENERAL / NEURO / PSYCH: Alert. Oriented X 4. RESPIRATORY: No respiratory distress. Two patient identifiers checked. Call light placed in reach. Bed placed in lowest position. Brakes of bed on. Patient ready for evaluation- ED physician notified. --04:24 03/04/21 Tim Alfonso R.N. 04:23 03/04/21. BP: 150/99. MAP: 116. HR: 76. RR: 16. O2 saturation: 99% on room air. Temp: 97.1 F. Pain level now: 11/04. --04:24 03/04/21 Tim Alfonso R.N.DISPOSITION / DISCHARGE Condition at departure: improved. No learning barriers present. Discharge instructions provided and reviewed with the patient. Reviewed warnings. Reviewed medication(s). Treatments reviewed. Reviewed referrals. Patient verbalized understanding. Written instructions provided in Swazi. The patient was discharged by the physician. She was discharged home and unaccompanied at time of discharge. She left ambulatory and via private vehicle. Spouse driving. --04:35 03/04/21 Mala Hopkins 04:35 03/04/21. BP: 150/99. HR: 76. RR: 16. O2 saturation: 99%. Temp: 97.1 F. Pain level now 11/04. --04:35 03/04/21 Mala Hopkins Departure time: 04:35 03/04/2021. --04:50 03/04/21 Mala Hopkins.Locked/Released at 03/04/2021 04:50 by Mala Hopkins Name Value Range Interpretation Code Description Data Catherine rce(s) Supporting Document(s) ID Date Data Source [id number] 03/04/2021 03:37:00 AM EDT [facility] 1 Clinical Report - Physicians/Mid Levels [facility] Emergency Department [address] [place] [address] Phone #: ext- [phone] 03/04/2021 03:35 [id number] Sex[facility] F : 1980 Age: 40y Time Seen: 03:48 03/04/2021; initial patient contact. Arrived- By private vehicle. Historian- patient. Disposition decision: 04:27 03/04/2021.HISTORY OF PRESENT ILLNESS Chief Complaint: LOWER EXTREMITY PAIN and ; PAIN IN THE LEFT HIP. This started x 3 months and is still present. Severity is described as being severe. The quality is noted to be dull, aching and "pain". It is described as radiating to the left flank. Symptoms located in the area of the left hip. The patient has not had redness. No swelling, bladder dysfunction, bowel dysfunction, sensory loss or motor loss. She has had mild difficulty walking. ( pt is spouse and has been living in [place] for last 3 yrs, just returned to [facility] 2 weeks ago; pt had reconstructive surgery of rt hip in 2008; pt has been having chronic left hip pain x 3 months and saw numerous MD's in [place] and had numerous x-rays; pt takes oxycodone prn, took 10 mg HAND II CUTTER because pain was so bad; pt's pain is around left ant. sup. iliac spine; pt has not seen orthopedics in yet). Patient denies an injury. Similar symptoms previously. Patient has had similar symptoms chronically. Recent medical care: Not recently seen/assessed.REVIEW OF SYSTEMSNo cough, chest pain, difficulty breathing, fever or skin rash. No enlarged lymph nodes, neck pain, backpain, headache or blurred vision. No sore throat, abdominal pain, vomiting, diarrhea or black stools. Nodifficulty with urination or bloody stools. All other systems reviewed and are negative.PAST HISTORYSee nurses notes. Problems: Arthritis. (Left hip). Additional Surgeries: Appendectomy. . Hip Surgery. Medications: Piroxicam Oral. 2 Clinical Report - [facility] [address] [place] [address] Phone #: ext- [phone] 03/04/2021 03:35 Patient: MILAN AZEVEDO Sex: F : 1980 Age: 40y Allergies: No Known Drug Allergy.SOCIAL HISTORYNever smoker. Occasional alcohol use. No drug use.ADDITIONAL NOTESThe nursing notes have been reviewed with agreement regarding the chief complaint, HPI, ROS, PMH andpatient medicatio ns and allergies.PHYSICAL EXAMVital Signs: 03/04/2021 03:35 BP: 188/110. MAP: 136. HR: 105. RR: 16. O2 saturation: 100%. Temp: 95.5F. Have been reviewed. Hypertensive. Oxygen saturation normal.Appearance: Alert. Oriented X3. Anxious. Appears to be in pain.Eyes: Pupils equal, round and reactive to light. Eyes normal inspection.ENT: Nose normal. Pharynx normal.Neck: Normal inspection. Neck supple.CVS: Normal heart rate and rhythm. Heart sounds normal.Respiratory: No respiratory distress. Painless inspiration. Breath sounds normal.Abdomen: Soft and nontender. No organomegaly.Back: Normal inspection. No tenderness. ROM normal.Skin: Skin intact. Skin warm and dry. Normal skin color. Normal skin turgor.Extremities: Left hip: moderate tenderness located in the anterior aspect of the hip. Neurovascular intactdistally. (left anterior iliac spine area). No swelling. No limitation in ROM. Lower extremities exhibit normalROM. No lower extremity edema. No signs of infection involving the lower extremities. No lowerextremity edema. No calf tenderness.Gait: Normal gait. No limping gait.Neuro: Oriented X 3. No motor deficit. No sensory deficit.PROGRESS AND PROCEDURESCourse of Care: 04:24 03/04/21. per physical exam, pt has chronic left anterior iliac spine pain[facility] [place] refuses anymore x-rays, has oxycodone at home; will give Toradol and Ativanand Lidocaine patch in ER and d/c home w advice to f[place] [place] and [place]; ptunderstands and agrees. Patient counseled in person regarding the patient's stable condition, diagnosis and need for follow-up. Patient agrees with plan of care. Disposition: Condition: good and stable. Discharge decision based on the following: patient's condition is stable; patient's condition is improved; patient is ambulatory; patient is active; patient drinking fluids; patient eating; patient's pain is controlled; patient's exam is improved; improving condition on repeat evaluation; social support is good; transportation is available; follow-up is available; clinical impression is consistent with outpatient treatment. 3 Clinical Report - Physicians/[facility] [address] [place] [address] Phone #: ext- [phone] 03/04/2021 03:35 --- Patient: MILAN AZEVEDO Sex: F : 1980 Age: 40yCLINICAL IMPRESSION Chronic left hip pain. Chronic pelvic pain. (Left Anterior Iliac Spine).INSTRUCTIONS Apply ice for 30 minutes four times a day for three days followed by moist heat 30 minutes four times a day for five days. Don't apply ice directly to skin, don't use while asleep and don't use high setting on heating pad. No strenuous activity until better. (PLEASE FOLLOW UP WITH ORTHO [place] FOR FURTHER IMAGING SUCH MRI AND TREATMENT SUCH PT). Warnings: Further evaluation is necessary. It is very important to follow up with a healthcare provider. GENERAL WARNINGS: Return or contact your physician immediately if your condition worsens or changes unexpectedly, if not improving as expected, or if other problems arise. Specifically return if pain, vomiting, bleeding, breathing difficulty or fever greater than 102 degrees F and not controlled by acetaminophen or ibuprofen. Your Current Medications: Your current home medications have been reviewed. CONTINUE TAKING THE FOLLOWING MEDICATIONS: Piroxicam Oral. Prescription Medications: Lidoderm 5 % topical patch Apply 1 patch once a day for 7 days -- Take off after 12 hrs. Dispense 7 patch. Refills: 0. Substitution permitted. Pharmacy - [id number] [address] [place] [place], [place] [id number]. . Follow-up: Return to the emergency department as needed. Follow up with an orthopedic surgeon in two days even if well. Call for an appointment. Reason for referral: evaluation and treatment. Summary of care provided to patient via paper. Understanding of the discharge instructions verbalized by patient. Expected course of injury, discharge instructions, activity level, diet, prescriptions x1, follow-up appointment and risks and benefits of shamir tment reviewed with patient and understanding verbalized. Agrees to plan of care.(Electronically signed by Ktaty Martinez M.D. 03/04/2021 06:42) 4Clinical Report - Physicians[facility] [address] [place] [address] Phone #: ext- [phone] 03/04/2021 03:35 [id number] Sex[facility] F : 1980 Age: 40y Name Value Range Interpretation Code Description Data Catherine rce(s) Supporting Document(s) Procedure Social History Code Duration Value Status Description Data Source(s ) Alcohol intake 04/30/2021 12:00:00 AM EDT Current drinker of al cohol (finding) completed Current drinker of alcohol (finding) [facility] Tobacco use and exposure 04/30/2021 12:00:00 AM EDT Never used co mpleted Never used [facility] Smoking 04/30/2021 12:00:00 AM EDT Never smoker completed Never s [facility] Alcohol intake 03/23/2021 12:00:00 AM EDT Current drinker of al cohol (finding) completed Current drinker of alcohol (finding) [facility] Patient Treatment Plan of Care Planned Activity Planned Date Details Description Data Source (s) Ibuprofen 800 MG Oral Tablet 04/14/2021 12:00:00 AM [facility] Acetaminophen 325 MG / Oxycodone Hydrochloride 5 MG Or al Tablet 04/12/2021 12:00:00 AM [facility] ospital tizanidine 4 MG Oral Tablet [Zanaflex] 03/08/2021 12:00:00 AM [facility] Diclofenac Sodium 75 MG Delayed Release Oral Tablet 03/08/20 12:00:00 AM [facility] Oxycodone Hydrochloride 5 MG Oral Tablet 02/12/2021 12:00:00 AM [facility] Piroxicam 20 MG Oral Capsule 01/05/2021 12:00:00 AM [facility]
[2021-06-22 06:37] LABS: HEMATOCRIT 36.8 % (36.0-47.0); HEMOGLOBIN 12.2 g/dl (12.0-15.5); MEAN CORPUSCULAR HGB CONC 33.2 g/dl (32.0-36.5); MEAN CORPUSCULAR VOLUME 87.4 fl (80.0-96.0); PLATELET COUNT, AUTOMATED 341 10^3/uL (150-450); RED BLOOD COUNT 4.21 10^6/uL (4.00-5.40); WHITE BLOOD COUNT 8.6 10^3/uL (4.0-10.0)
[2021-06-22] MEDS ORDERED: SILVER NITRATE APPLICATOR As Ordered ONE (07:12)
[2021-06-22] MEDS ORDERED: LIDOCAINE 1% SDV 30ML VIAL As Ordered ONE (07:12)
[2021-06-22] MEDS ORDERED: HYDROmorphone HCL 2 MG/ML 1ML VIAL As Ordered ONE (07:13)
[2021-06-22] MEDS ORDERED: MIDAZOLAM INJ 2MG/2ML VIAL (J2250 PER 1MG) As Ordered ONE (07:13)
[2021-06-22] MEDS ORDERED: fentaNYL 100 MCG/2 ML INJECTION (J3010) As Ordered ONE (07:14)
[2021-06-22] MEDS ORDERED: KETOROLAC 60MG 2ML VIAL As Ordered ONE (07:14)
[2021-06-22] MEDS ORDERED: ONDANSETRON 4MG/2ML VIAL As Ordered ONE (07:14)
[2021-06-22] MEDS ORDERED: propofoL 200 MG/20 ML VIAL As Ordered ONE (07:14)
[2021-06-22] MEDS ORDERED: dexameTHASONE 4 MG/ML 1ML VIAL (J1100 PER 1MG) As Ordered ONE ×2 (07:14→07:50)
[2021-06-22] MEDS ORDERED: ROCURONIUM BROMIDE 50 MG/5 ML VIAL As Ordered ONE ×3 (07:14→09:57)
[2021-06-22] MEDS ORDERED: LIDOCAINE 2% 100MG/5ML SDV (FOR ANES.) As Ordered ONE (07:14)
[2021-06-22] MEDS ORDERED: BUPIVACAINE HCL 0.25% 30ML VIAL As Ordered ONE (07:14)
[2021-06-22] MEDS ORDERED: SCOPOLAMINE 1MG TRANSDERMAL PATCH TOP ONE (07:40)
[2021-06-22] MEDS ORDERED: METOCLOPRAMIDE INJ 10MG/2ML VIAL (J2765 PER 1) As Ordered ONE (07:57)
[2021-06-22] MEDS ORDERED: PHENYLephrine 500MCG 5ML (100MCG/ML) SYRINGE As Ordered ONE (08:03)
[2021-06-22] MEDS ORDERED: ACETAMINOPHEN 1000MG 100ML IV BTL (OFIRMEV) (J0131 PER 10MG) As Ordered ONE (08:04)
[2021-06-22] MEDS ORDERED: LACRILUBE (AKWA TEARS) OPHTH OINT 3.5 GM As Ordered ONE (08:18)
[2021-06-22] MEDS ORDERED: LABETALOL 100MG/20ML VIAL As Ordered ONE (08:33)
[2021-06-22] MEDS ORDERED: SUGAMMADEX SODIUM 500 MG/5 ML VIAL (BRIDION) As Ordered ONE (08:35)
[2021-06-22] MEDS ORDERED: ONDANSETRON 4MG/2ML VIAL IV PRN (11:20)
[2021-06-22] MEDS ORDERED: oxyCODONE 5MG TAB PO PRN (11:20)
[2021-06-22] MEDS ORDERED: LR 1,000 ML IV SCH (11:20)
[2021-06-22] MEDS ORDERED: fentaNYL 100 MCG/2 ML INJECTION (J3010) IV PRN (11:20)
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
[2021-06-22 13:14] VITALS: BP 158/89
[2021-06-22] MEDS ORDERED: ACETAMINOPHEN 325 MG TAB PO SCH (16:00)
[2021-06-23] MEDS ORDERED: SENN-80 PO (16:46)
== END 2021-06-22 13:23 | disposition home or self-care (01) ==
LOC: M SDC 05:58
PROVIDERS: ATTEND Obstetrics & Gynecology
DX: N84.0 Polyp of corpus uteri (principal); N83.292 Other ovarian cyst, left side; R10.2 Pelvic and perineal pain; I10 Essential (primary) hypertension; Z79.899 Other long term (current) drug therapy
CPT/HCPCS: 36415; 57500; 58661; 58662; 81025; 85027; 86850; 86900; 86901; 88305; J0131; J1100; J1170; J2250; J2370; J2405; J2765; J3010

== ENCOUNTER 2021-06-23 11:49 | Inpatient (IN) | payer OTHER ==
[~2021-06-23] VITALS: Ht 160 cm; Wt 78.2 kg
[~2021-06-23 11:49] MED LIST changes: +TIZA10TA PO; -TIZA4TAB4 PO
[2021-06-23] MEDS ORDERED: MORPHINE 4 MG/ML 1ML VIAL/SYRINGE (J2270) IV ONE (12:15)
[2021-06-23] MEDS ORDERED: ONDANSETRON 4MG/2ML VIAL IV ONE (12:15)
[2021-06-23] MEDS ORDERED: NS 1,000 ML IV ONE ×2 (12:15→14:00)
[2021-06-23 12:33] LABS: BASO # 0.1 10^3/uL (0.0-0.2); BASO % 0.3 % (0.0-1.0); HEMATOCRIT 34.4 % (36.0-47.0); HEMOGLOBIN 11.3 g/dl (12.0-15.5); LYMPH # 0.9 10^3/uL (1.5-5.0); LYMPH % 3.4 % (24.0-44.0); MEAN CORPUSCULAR HEMOGLOBIN 29.4 pg (27.0-33.0); MEAN CORPUSCULAR HGB CONC 32.8 g/dl (32.0-36.5); MEAN CORPUSCULAR VOLUME 89.4 fl (80.0-96.0); MONO # 0.8 10^3/uL (0.0-0.8); MONO % 3.2 % (2.0-8.0); NEUTROPHILS # 22.6 10^3/uL (1.5-8.5); NEUTROPHILS % 91.7 % (36.0-66.0); PLATELET COUNT, AUTOMATED 180 10^3/uL (150-450); RED BLOOD COUNT 3.85 10^6/uL (4.00-5.40); WHITE BLOOD COUNT 24.7 10^3/uL (4.0-10.0)
[2021-06-23 13:21] LABS: ALBUMIN 3.5 GM/DL (3.2-5.2); BILIRUBIN,DIRECT 0.3 MG/DL (0.0-0.2); BILIRUBIN,TOTAL 0.8 MG/DL (0.2-1.0); TOTAL PROTEIN 7.1 GM/DL (6.4-8.2)
[2021-06-23 13:47] LABS: INR 1.28; PROTHROMBIN TIME 16.5 SECONDS (12.7-14.5)
[2021-06-23] MEDS ORDERED: MORPHINE 2 MG/ML 1ML VIAL (J2270) IV PRN (14:45)
[2021-06-23] MEDS: LR 1,000 ML IV SCH (14:45)
[2021-06-23] MEDS ORDERED: ONDANSETRON 4 MG TAB PO PRN (14:45)
[2021-06-23] MEDS ORDERED: oxyCODONE 5MG TAB PO PRN (14:45)
[2021-06-23] MEDS: KETOROLAC 30 MG/ML 1ML VIAL IV SCH ×2 (16:00→23:53)
[2021-06-23 16:15] LABS: RSV AMPLIFICATION NEGATIVE (NEGATIVE)
[2021-06-23] MEDS ORDERED: SENN-80 PO (16:46)
[2021-06-23 16:50] LABS: CALCIUM LEVEL 8.8 MG/DL (8.5-10.1); CREATININE FOR GFR 2.96 MG/DL (0.55-1.30); GLOMERULAR FILTRATION RATE 18.5 (>58); POTASSIUM SERUM 3.6 MEQ/L (3.5-5.1)
[2021-06-23] MEDS ORDERED: HOME MED LIST COMPLETE! XX SCH (16:50)
[2021-06-23 17:05] VITALS: BP 109/55
[2021-06-23 17:45] VITALS: BP 94/51
[2021-06-23] MEDS: oxyCODONE 5MG TAB PO PRN (18:02)
[2021-06-23] MEDS ORDERED: ACETAMINOPHEN *IV* 1,000 MG in IV 1 EA IV ONE (19:00)
[2021-06-23 20:00] VITALS: BP 96/58
[2021-06-23] MEDS ORDERED: NS 500 ML IV ONE (20:30)
[2021-06-23 22:20] VITALS: BP 100/52
[2021-06-23] MEDS: ACETAMINOPHEN 500 MG TAB PO SCH (23:54)
[2021-06-24] VITALS (11 sets, daily range): BP systolic 97–125; BP diastolic 53–68
[2021-06-24] MEDS ORDERED: NS 500 ML IV ONE (00:05)
[2021-06-24] MEDS: PROMETHAZINE INJ 25 MG/ML VIAL (J2550) IV PRN ×2 (00:51→11:46)
[2021-06-24 00:53] LABS: BASO % 0.2 % (0.0-1.0); EOS % 0.1 % (0.0-3.0); HEMATOCRIT 26.1 % (36.0-47.0); LYMPH # 0.6 10^3/uL (1.5-5.0); LYMPH % 3.3 % (24.0-44.0); MEAN CORPUSCULAR HEMOGLOBIN 29.7 pg (27.0-33.0); MONO # 0.4 10^3/uL (0.0-0.8); MONO % 2.1 % (2.0-8.0); NEUTROPHILS # 16.8 10^3/uL (1.5-8.5); NEUTROPHILS % 93.4 % (36.0-66.0); PLATELET COUNT, AUTOMATED 142 10^3/uL (150-450)
[2021-06-24 00:59] LABS: HEMOGLOBIN 8.6 g/dl (12.0-15.5)
[2021-06-24] MEDS ORDERED: ISOVUE-370 76% 100ML VIAL As Ordered ONE ×2 (03:01→10:53)
[2021-06-24] MEDS: LR 1,000 ML IV SCH ×4 (03:34→23:04)
[2021-06-24] MEDS: ACETAMINOPHEN 500 MG TAB PO SCH ×3 (05:50→18:00)
[2021-06-24 08:14] LABS: HEMATOCRIT 25.9 % (36.0-47.0); HEMOGLOBIN 8.4 g/dl (12.0-15.5); MEAN CORPUSCULAR HEMOGLOBIN 29.6 pg (27.0-33.0); MEAN CORPUSCULAR HGB CONC 32.4 g/dl (32.0-36.5); MEAN CORPUSCULAR VOLUME 91.2 fl (80.0-96.0); PLATELET COUNT, AUTOMATED 147 10^3/uL (150-450); RED BLOOD COUNT 2.84 10^6/uL (4.00-5.40); WHITE BLOOD COUNT 13.9 10^3/uL (4.0-10.0)
[2021-06-24 08:41] LABS: ALBUMIN 2.4 GM/DL (3.2-5.2); BILIRUBIN,TOTAL 0.6 MG/DL (0.2-1.0); CALCIUM LEVEL 7.4 MG/DL (8.5-10.1); CREATININE FOR GFR 1.33 MG/DL (0.55-1.30); GLOMERULAR FILTRATION RATE 46.6 (>58); POTASSIUM SERUM 3.3 MEQ/L (3.5-5.1); TOTAL PROTEIN 5.4 GM/DL (6.4-8.2)
[2021-06-24] MEDS: KETOROLAC 30 MG/ML 1ML VIAL IV SCH ×2 (09:11→15:12)
[2021-06-24] MEDS: oxyCODONE 5MG TAB PO PRN (17:59)
[2021-06-25] MEDS: KETOROLAC 30 MG/ML 1ML VIAL IV SCH ×2 (00:16→07:55)
[2021-06-25] MEDS: ACETAMINOPHEN 500 MG TAB PO SCH ×3 (00:16→12:25)
[2021-06-25 00:20] VITALS: BP 116/71
[2021-06-25] MEDS: oxyCODONE 5MG TAB PO PRN (01:30)
[2021-06-25 04:00] VITALS: BP 136/78
[2021-06-25] MEDS: LR 1,000 ML IV SCH (06:21)
[2021-06-25 07:19] LABS: HEMATOCRIT 25.6 % (36.0-47.0); HEMOGLOBIN 8.4 g/dl (12.0-15.5); MEAN CORPUSCULAR HEMOGLOBIN 29.2 pg (27.0-33.0); MEAN CORPUSCULAR HGB CONC 32.8 g/dl (32.0-36.5); MEAN CORPUSCULAR VOLUME 88.9 fl (80.0-96.0); PLATELET COUNT, AUTOMATED 124 10^3/uL (150-450); RED BLOOD COUNT 2.88 10^6/uL (4.00-5.40); WHITE BLOOD COUNT 10.2 10^3/uL (4.0-10.0)
[2021-06-25] MEDS ORDERED: MIRALAX *UNIT DOSE* 17GM PACKET PO PRN (07:50)
[2021-06-25 08:00] VITALS: BP 150/81
[2021-06-25 08:10] LABS: ALBUMIN 2.3 GM/DL (3.2-5.2); ALT/SGPT 18 U/L (12-78); BILIRUBIN,TOTAL 0.7 MG/DL (0.2-1.0); BLOOD UREA NITROGEN 28 MG/DL (7-18); CALCIUM LEVEL 7.9 MG/DL (8.5-10.1); CARBON DIOXIDE LEVEL 27 MEQ/L (21-32); CHLORIDE LEVEL 113 MEQ/L (98-107); CREATININE FOR GFR 0.89 MG/DL (0.55-1.30); GLOMERULAR FILTRATION RATE > 60.0 (>58); GLUCOSE, FASTING 90 MG/DL (70-100); POTASSIUM SERUM 3.6 MEQ/L (3.5-5.1); SODIUM LEVEL 142 MEQ/L (136-145); TOTAL PROTEIN 5.5 GM/DL (6.4-8.2)
[2021-06-25 12:15] VITALS: BP 125/69
[2021-06-25] MEDS ORDERED: MIRA1POW3 PO (14:28)
[2021-06-25] MEDS ORDERED: IBUP80TA PO (14:28)
[2021-06-25] MEDS ORDERED: OXYC-517 PO (14:28)
[2021-06-25] MEDS ORDERED: ACET325C5 PO (14:28)
[2021-06-25] MEDS ORDERED: IBUPROFEN 800 MG TAB PO SCH (16:00)
== END 2021-06-25 17:35 | disposition home or self-care (01) | DRG 316 ==
LOC: EDBD 11:49 → M ED 11:49 → M ED INP 14:42 → ENRESERV 16:27 → M PED 17:00
PROVIDERS: ADMIT Obstetrics & Gynecology; ATTEND Obstetrics & Gynecology
PROC: 30233N1 Transfusion of Nonautologous Red Blood Cells into Peripheral Vein, Percutaneous Approach (ICD-10-PCS; principal; 2021-06-24)
DX: I95.9 Hypotension, unspecified (principal); R00.0 Tachycardia, unspecified; I10 Essential (primary) hypertension; N80.9 Endometriosis, unspecified; Z20.822 Contact with and (suspected) exposure to COVID-19; D64.9 Anemia, unspecified; Z79.899 Other long term (current) drug therapy

== ENCOUNTER → 2021-12-07 | Outpatient (CLI) | payer OTHER ==
[~2021-12-07] MED LIST changes: +ACET325C5 PO; +MIRA1POW3 PO; +OXYC-517 PO; +PROHANCE 279.3MG/ML 15ML VIAL As Ordered ONE; +PROHANCE 279.3MG/ML 5ML VIAL As Ordered ONE; +SENN-80 PO
== END ==
LOC: M RAD 13:29
PROVIDERS: ATTEND Obstetrics & Gynecology
DX: N83.201 Unspecified ovarian cyst, right side (principal)
CPT/HCPCS: 72197; A9576

== ENCOUNTER → 2022-05-09 | Outpatient (CLI) | payer OTHER ==
[~2022-05-09] MED LIST changes: -PROHANCE 279.3MG/ML 15ML VIAL As Ordered ONE; -PROHANCE 279.3MG/ML 5ML VIAL As Ordered ONE
== END ==
LOC: M WHC 06:41
PROVIDERS: ATTEND Obstetrics & Gynecology
DX: N83.201 Unspecified ovarian cyst, right side (principal)

== ENCOUNTER → 2022-08-25 | Outpatient (CLI) | payer OTHER | LOC: M WHC 07:03 | PROVIDERS: ATTEND Obstetrics & Gynecology | DX: N80.9 Endometriosis, unspecified (principal); N80.101 Endometriosis of right ovary, unspecified depth; N83.8 Other noninflammatory disorders of ovary, fallopian tube and broad ligament ==